=== PATIENT | female | born 1960 | race Two or more races ===

== ENCOUNTER 2025-09-18 16:27 | Observation (INO) ==
[2025-09-18 17:02] LABS: Hematocrit (blood only) 37.7 % (37.0-47.0); Hemoglobin 13.3 g/dl (12.0-16.0); Immature Granulocytes # (auto) 0.01 K/uL (0.01-0.20); Immature Granulocytes % (auto) 0.1 %; Mean Corpuscular Hemoglobin 31.4 pg (25.0-34.0); Mean Corpuscular Volume 88.9 fL (80.0-100.0); Platelet Count 328 K/uL (130-400); RDW Standard Deviation 42.9 fL (36.4-46.3); Red Blood Count 4.24 M/uL (4.20-5.40); White Blood Count 7.61 K/ul (4.8-10.8)
[2025-09-18 17:20] LABS: Alanine Aminotransferase 18 U/L (7-52); Albumin Globulin Ratio 1.1 (0.9-2); Albumin Level 4.1 gm/dl (3.4-5.0); Alkaline Phosphatase 55 U/L (34-104); Anion Gap 7 (3-11); Bilirubin,Total 0.4 mg/dl (0.2-1.0); Blood Urea Nitrogen 16 mg/dl (6-23); Calcium 9.9 mg/dl (8.6-10.3); Carbon Dioxide 30 mmol/L (21-32); Chloride 101 mmol/L (98-107); Globulin 3.9 gm/dl (2.5-4.0); Glucose 174 mg/dl (70-99(Fasting)); Potassium 3.7 mmol/L (3.5-5.1); Sodium 138 mmol/L (136-145); Total Protein 8.0 gm/dl (6.0-8.3)
[2025-09-18 20:28] LABS: Magnesium 2.4 mg/dl (1.7-2.4)
--- NOTE | 2025-09-18 20:32 | Emergency Department Note ---
Impression & Plan Generalized weakness, Tremors of nervous system, Adverse drug effect, Parkinson's disease, Acute UTI (urinary tract infection) ED Provider Note ED Provider Note NAME: CLAUDE KAPOOR AGE:65 SEX: Female : 1960 ARRIVES VIA: Private vehicle INFORMANT: Patient, son ED PROVIDER(s): Flor Nolen DO CHIEF COMPLAINT: Increased shaking, decreased appetite, weakness HPI: This is a 65-year-old female who presents to the emergency department due to concern for worsening symptoms over the course of the last week that they suspect may be related to recent medication changes. Patient with increased shakiness, sense of "hot and cold", decreased appetite, and increased weakness. Please state patient does have a history of Parkinson's and a few months ago moved here from [place]. When she moved and her insurance changed, she could no longer afford the original Parkinson's medication she had been prescribed. She was changed to carbidopa levodopa and was taking it and her symptoms seemed well-controlled. She complained to her neurologist, Dr. Madera, about taking a total of 8 pills each day. Son states he then changed the dosing so that it was only 3 pills a day but a higher prescribed dose each time. He states when they did that she began to become symptomatic. He states she followed up with her PCP. He states after worsening symptoms she tried to go back to the regimen of 8 pills daily however has continued to feel worse. He states she had previously been independent performing all of her own ADLs and now she cannot walk and he has to carry her to the bathroom. He states there been no accompanying medication changes or recent illness. He states she has not fallen. PAST MEDICAL HISTORY:See Below PAST SURGICAL HISTORY:See Below FAMILY HISTORY:See Below SOCIAL HISTORY:See Below HOME MEDICATIONS:See Below ALLERGIES:See Below VITALS:See Below PHYSICAL EXAMINATION: GENERAL: alert, well nourished, no distress, non-toxic, flat affect EYE EXAM: normal conjunctiva, PERRL and EOM's grossly intact OROPHARYNX: no exudate, no erythema, lips, buccal mucosa, and tongue normal and mucous membranes are moist NECK: supple, no nuchal rigidity, no adenopathy, non-tender LUNGS: Clear to auscultation. Normal chest wall mechanics, no w/r/r HEART: no murmurs, S1 normal and S2 normal ABDOMEN: abdomen soft, non-tender, normo-active bowel sounds, no masses, no rebound or guarding. SKIN: no rashes, petechiae, orbruising UPPER EXTREMITIES: upper extremities are grossly normal. FROM, nml pulses b/l. LOWER EXTREMITIES: No pitting edema. FROM, nml pulses b/l. NEURO EXAM: Normal sensorium, cranial nerves II-XII grossly intact, normal speech, no facial droop,nogross weakness of arms, no gross weakness of legs. Gross sensation intact. No ataxia. Resting tremor noted. Vital Signs: reviewed and remarkable Differential Diagnosis: Medication adverse effect, occult infection, dehydration, electrolyte abnormality, depression, SAJAN, as well as other were considered MEDICAL DECISION MAKING: This is a 65-year-old female who presents with family due to concern for increased weakness, tremors, decreased intake, and possible side effects of her medications. Patient with recent changes to her Parkinson's medications and dosing. Patient initially seen in triage area due to presentation on the day of volume and acuity. Labs are drawn and sent, IV established, once she was only placed in a regular patient room and EKG was performed and interpreted by me at bedside and she was monitored on telemetry. Urine collected and sent additionally and was suggestive of possible infection. Other labs reassuring. Due to concern for significant weakness and decline in her ADLs with confusion, and unclear if related to medication side effect versus other etiology including a UTI, case discussed with the hospitalist team for additional evaluation and mgmt. Consultation(s): 2109: Discussed with Dr. Ceja, [facility] hospitalist team, for additional evaluation and mgmt. ER Treatment Provided: See below Diagnostics Interpreted By Me: -ECG: Normal sinus at 97 axis, normal intervals, no acute ST/T wave changes -Cardiac Monitoring: An order was placed for continuous cardiac monitoring. The monitor shows a rate of 86 with normal sinus rhythm. -Laboratory studies: As stated above and show below. Triage Nursing Note Reviewed Prior/Outside Records Reviewed Past Med/Surg History Problem List (Updated 09/18/25 @ 22:59 by Flor Nolen DO) Acute UTI (urinary tract infection) (Acute) Parkinson's disease (Acute) Adverse drug effect (Acute) Tremors of nervous system (Acute) Generalized weakness (Acute) Social History Smoking Status: Never smoker Preferred Language: Montenegrin Feels Safe at Home: Yes Allergies Allergies Allergy/AdvReac Type Severity Reaction Status Date / Time lisinopril Allergy Swelling Verified 09/18/25 22:02 of Lip/Tongue/Throat Results & Data (ED) Vital Signs Vital Signs - 24 hr 09/18/25 16:31 09/18/25 21:03 09/18/25 21:03 Temperature 37 C Temperature Source Temporal Artery Scan Pulse Rate 101 H 84 Pulse Rate [Left Apical] 84 Respiratory Rate 18 18 Respiratory Effort / Characteristics Non-Labored Spontaneous Non-Labored Spontaneous Respiratory Depth Normal Normal Respiratory Pattern Regular Regular Blood Pressure 141/93 H Blood Pressure [Right Arm] 128/79 Blood Pressure Mean 109 Blood Pressure Mean [Right Arm] 95 Blood Pressure Position [Right Arm] Semi-fowlers Pulse Oximetry 95 97 Oxygen Delivery Method Room Air Room Air Sepsis Recent Fever Within 48 Hours No Sepsis New/Unexplained Change in Mental Status No Sepsis Action Taken by Nursing No Action Required 09/18/25 21:03 09/18/25 21:30 09/18/25 22:01 Temperature Temperature Source Pulse Rate 81 80 Pulse Rate [Left Apical] Respiratory Rate 19 19 Respiratory Effort / Characteristics Respiratory Depth Respiratory Pattern Blood Pressure 128/79 132/79 142/77 H Blood Pressure [Right Arm] Blood Pressure Mean 97 101 96 Blood Pressure Mean [Right Arm] Blood Pressure Position [Right Arm] Pulse Oximetry 97 98 Oxygen Delivery Method Room Air Sepsis Recent Fever Within 48 Hours Sepsis New/Unexplained Change in Mental Status Sepsis Action Taken by Nursing Laboratory Data 09/18/25 16:48 09/18/25 16:48 Lab Results 09/18/25 09/18/25 Range/Units 16:48 21:01 WBC 7.61 (4.8-10.8) K/ul RBC 4.24 (4.20-5.40) M/uL Hgb 13.3 (12.0-16.0) g/dl Hct 37.7 (37.0-47.0) % MCV 88.9 (80.0-100.0) fL MCH 31.4 (25.0-34.0) pg MCHC 35.3 (32.0-36.0) g/dL RDW Std Deviation 42.9 (36.4-46.3) fL RDW Coeff of Gely 13.2 (11.5-14.5) % Plt Count 328 (130-400) K/uL MPV 9.6 (9.4-12.4) fL Immature Gran % (Auto) 0.1 % Neut % (Auto) 73.8 % Lymph % (Auto) 18.1 % [place] % (Auto) 6.8 % Eos % (Auto) 0.5 % Baso % (Auto) 0.7 % Neut # (Auto) 5.61 (1.40-6.50) K/uL Lymph # (Auto) 1.38 (1.20-3.40) K/uL [place] # (Auto) 0.52 (0.11-0.59) K/uL Eos # (Auto) 0.04 (0.00-0.50) K/uL Baso # (Auto) 0.05 (0.00-0.20) K/uL Immature Gran # (Auto) 0.01 (0.01-0.20) K/uL Sodium 138 (136-145) mmol/L Potassium 3.7 (3.5-5.1) mmol/L Chloride 101 (98-107) mmol/L Carbon Dioxide 30 (21-32) mmol/L Anion Gap 7 (3-11) BUN 16 (6-23) mg/dl Creatinine 0.65 (0.6-1.2) mg/dl Est Cr Clr Drug Dosing Not Reportable eGFR 96.44 BUN/Creatinine Ratio 24.6 H (10-20) Glucose 174 H (70-99(Fasting)) mg/dl Calcium 9.9 (8.6-10.3) mg/dl Magnesium 2.4 (1.7-2.4) mg/dl Total Bilirubin 0.4 (0.2-1.0) mg/dl AST 23 (13-39) U/L ALT 18 (7-52) U/L Alkaline Phosphatase 55 (34-104) U/L C-Reactive Protein < 0.50 (0-0.5) mg/dl Total Protein 8.0 (6.0-8.3) gm/dl Albumin 4.1 (3.4-5.0) gm/dl Globulin 3.9 (2.5-4.0) gm/dl Albumin/Globulin Ratio 1.1 (0.9-2) TSH 4.026 (0.300-4.500) uIu/ml Urine Color Dark Yellow Urine Appearance Cloudy A (Clear) Urine pH 6.5 (4.5-7.5) Ur Specific [place] 1.019 (1.000-1.030) Urine Protein Trace H (Negative) Urine Glucose (UA) Negative (Negative) Urine Ketones Trace H (Negative) Urine Blood Negative (Negative) Urine Nitrite Negative (Negative) Urine Bilirubin Negative (Negative) Urine Urobilinogen Negative (Negative) Ur Leukocyte Esterase 2+ H (Negative) Urine WBC (Auto) 21-50 H (0-5) /hpf Urine RBC (Auto) 3-5 H (0-2) /hpf U Hyaline Cast (Auto) 0-2 (0-2) /lpf U Epithel Cells (Auto) 3-5 H (0-2) /hpf Urine Bacteria (Auto) 2+ H (None Seen) Urine Comment Administered Medications Sodium Chloride (Nss) 1,000 mls @ 125 mls/hr IV .Q8H MEGAN Stop: 09/21/25 20:14 Last Admin: 09/18/25 21:15 Dose: 125 mls/hr Documented By: JOSE LUIS Discontinued Medications Ceftriaxone Sodium (Rocephin) 2,000 mg in 50 mls @ 100 mls/hr IV NOW STA Stop: 09/18/25 22:08 Last Admin: 09/18/25 22:01 Dose: 100 mls/hr Documented By: JOSE LUIS Discharge Plan Visit Data Chief Complaint: Illness Stated Complaint: VOMITNG, NAUSEA, DIARRHEA, SHAKING, NEG DRUG RXN ED Provider: Flor Nolen Discharge Problem: Generalized weakness, Tremors of nervous system, Adverse drug effect, Parkinson's disease, Acute UTI (urinary tract infection) Patient Disposition: Being Evaluated by Hospitalist Condition: Fair Forms Stand Alone Forms: My [facility] Referrals Referrals: PCP,NO [Physician] -
[2025-09-18 20:44] LABS: Thyroid Stimulating Hormone 4.026 uIu/ml (0.300-4.500)
[2025-09-18] MEDS: SODIUM CHLORIDE 0.9% 1,000 ML IV SCH (21:15)
[2025-09-18 21:20] LABS: Appearance Urine Cloudy (Clear); Bacteria Urine Automated 2+ (None Seen); Cast Urine Automated 0-2 /lpf (0-2); Glucose Urine UA Negative (Negative); WBC Urine Automated 21-50 /hpf (0-5)
[2025-09-18] MEDS: cefTRIAXone SODIUM 2,000 MG/50 ML BAG IV STA (22:01)
--- NOTE | 2025-09-18 23:35 | History & Physical Report ---
Date of Service September 18, 2025 Assessment & Plan (1) Generalized weakness: Plan: 65-year-old female with past medical history significant for type 2 diabetes, hypothyroidism, right breast cancer, Hyperlipidemia, osteoarthritis, Parkinson disease with dyskinesia, glaucoma both eyes, recurrent depression was brought in by son because of ongoing weakness. Patient recently moved from [place]. Son says she used to take carbidopa levodopa 8 tablets a day. When she saw neurologist here she complained of being on too many pills and the levodopa carbidopa dose was reduced to 3 tablets a day. Son thinks since then patient has declined. She was feeling nauseous and weak. Which she is to take 1 minute to walk before now takes 10 minutes. She went to [facility] ER twice and PCP office once and was told her symptoms were because of change in medi cations as per son. As per son her PCP told her to go back to taking 8 pills a day but patient is currently taking only 2 pills. As per son since last 1 week patient really went downhill with her weakness nausea. Patient is alert and awake. Denies any headache. Denies any chest pain. Denies any abdominal pain. Somewhat constipated. Micturating okay. No fevers. No difficulty swallowing. Vision is blurry. No sore throat or cough. Hemodynamics okay. Generalized weakness Son thinks because of reduced dose of carbidopa/levodopa Will consult neurology PT OT Acute UTI Possibly contributing to her symptoms Empiric Rocephin Gentle fluids Will follow cultures Type 2 diabetes Hold metformin Sliding scale Will monitor Depression Continue home medications Hyperlipidemia On statin Hypothyroidism On Synthyroid Hypertension On losartan DVT prophylaxis Lovenox Disposition Medical floor Full code History of Present Illness Chief Complaint: Weakness Primary Care Provider: Edilson Ann 65-year-old female with past medical history significant for type 2 diabetes, hypothyroidism, right breast cancer, Hyperlipidemia, osteoarthritis, Parkinson disease with dyskinesia, glaucoma both eyes, recurrent depression was brought in by son because of ongoing weakness. Patient recently moved from [place]. Son says she used to take carbidopa levodopa 8 tablets a day. When she saw neurologist here she complained of being on too many pills and the levodopa carbidopa dose was reduced to 3 tablets a day. Son thinks since then patient has declined. She was feeling nauseous and weak. Which she is to take 1 minut e to walk before now takes 10 minutes. She went to [facility] ER twice and PCP office once and was told her symptoms were because of change in medications as per son. As per son her PCP told her to go back to taking 8 pills a day but patient is currently taking only 2 pills. As per son since last 1 week patient really went downhill with her weakness nausea. Patient is alert and awake. Denies any headache. Denies any chest pain. Denies any abdominal pain. Somewhat constipated. Micturating okay. No fevers. No difficulty swallowing. Vision is blurry. No sore throat or cough. Hemodynamics okay. Past medical history. As mentioned above. Past surgical history. Lasering of second current tract. Partial right mastectomy. Radiation treatment. Chemotherapy. Cataracts total hysterectomy. Social history. No smoking. No alcohol use.. No drug use. Family history. No family history on file. Allergies Allergy/AdvReac Type Severity Reaction Status Date / Time lisinopril Allergy Swelling Verified 09/18/25 22:02 of Lip/Tongue/Throat Home Medications Medication Instructions Recorded Confirmed Type buspirone 10 mg tablet 10 mg PO BID 09/18/25 09/18/25 History carbidopa 25 mg-levodopa 100 1 tab PO TID 09/18/25 09/18/25 History mg-entacapone 200 mg tablet citalopram 40 mg tablet 40 mg PO DAILY 09/18/25 09/18/25 History cyanocobalamin (vitamin B-12) 250 250 mcg PO DAILY 09/18/25 09/18/25 History mcg tablet latanoprost 0.005 % eye drops 1 drp OPB HS 09/18/25 09/18/25 History levothyroxine 25 mcg tablet 25 mcg PO DAILY 09/18/25 09/18/25 History losartan 50 mg tablet 50 mg PO DAILY 09/18/25 09/18/25 History metformin 1,000 mg tablet 1,000 mg PO DAILY 09/18/25 09/18/25 History polyethylene glycol 3350 17 gram 17 g PO DAILY PRN Constipation 09/18/25 09/18/25 History oral powder packet (Miralax) pravastatin 40 mg tablet 40 mg PO DAILY 09/18/25 09/18/25 History Past Med/Surg History Problem List (Updated 09/19/25 @ 01:06 by Background Daemon) Acute UTI (urinary tract infection) (Acute) Parkinson's disease (Acute) Adverse drug effect (Acute) Tremors of nervous system (Acute) Generalized weakness (Acute) Social History Smoking Status: Never smoker Hx Alcohol Use: No Hx Substance Use: No Preferred Language: [place] Citizen Communication Ability: Effective Air Brake Operator Required: No Beliefs That Will Affect Care: None Current Living Situation: Family Current Living Situation Comment: lives with son and grand daughter Other Information That Helps Us Care for You: No Feels Safe at Home: Yes Safety Concerns: Feels Safe At This Time Assistive Devices: Cane, Glasses and Wheelchair Review of Systems Review of Systems: All systems reviewed & are unremarkable except as noted in HPI & below Physical Exam Physical Exam: General- Not in distress Head- atraumatic Eyes- PERRL. ENT- oropharynx clear Neck- supple, no JVD. Lungs- clear to auscultation no wheezing or crackles Heart- regular rhythm; no murmur, no gallop. Abdomen- normal bowel sounds, soft, nontender, no distension Extremities- lower ext edema present, no erythema seen Neuro- alert, oriented PERRL, no facial palsy; no dysarthria; moves extremities Results & Data Results & Data Vital Signs (Past 12 Hours) Vital Signs Temp Pulse Pulse Resp BP BP Pulse Ox 09/18/25 22:30 91 H 15 149/99 H 97 09/18/25 22:01 142/77 H 09/18/25 21:30 80 19 132/79 98 09/18/25 21:03 81 19 128/79 97 09/18/25 21:03 84 09/18/25 21:03 84 18 128/79 97 09/18/25 16:31 37 C 101 H 18 141/93 H 95 O2 Del Method 09/18/25 22:30 Room Air 09/18/25 22:01 09/18/25 21:30 09/18/25 21:03 Room Air 09/18/25 21:03 09/18/25 21:03 Room Air 09/18/25 16:31 Room Air Diagnostic Findings Laboratory Results WBC 7.61 K/ul (4.8-10.8) 09/18/25 16:48 RBC 4.24 M/uL (4.20-5.40) 09/18/25 16:48 Hgb 13.3 g/dl (12.0-16.0) 09/18/25 16:48 Hct 37.7 % (37.0-47.0) 09/18/25 16:48 MCV 88.9 fL (80.0-100.0) 09/18/25 16:48 MCH 31.4 pg (25.0-34.0) 09/18/25 16:48 MCHC 35.3 g/dL (32.0-36.0) 09/18/25 16:48 RDW Std Deviation 42.9 fL (36.4-46.3) 09/18/25 16:48 RDW Coeff of Gely 13.2 % (11.5-14.5) 09/18/25 16:48 Plt Count 328 K/uL (130-400) 09/18/25 16:48 MPV 9.6 fL (9.4-12.4) 09/18/25 16:48 Immature Gran % (Auto) 0.1 % 09/18/25 16:48 Neut % (Auto) 73.8 % 09/18/25 16:48 Lymph % (Auto) 18.1 % 09/18/25 16:48 [place] % (Auto) 6.8 % 09/18/25 16:48 Eos % (Auto) 0.5 % 09/18/25 16:48 Baso % (Auto) 0.7 % 09/18/25 16:48 Neut # (Auto) 5.61 K/uL (1.40-6.50) 09/18/25 16:48 Lymph # (Auto) 1.38 K/uL (1.20-3.40) 09/18/25 16:48 [place] # (Auto) 0.52 K/uL (0.11-0.59) 09/18/25 16:48 Eos # (Auto) 0.04 K/uL (0.00-0.50) 09/18/25 16:48 Baso # (Auto) 0.05 K/uL (0.00-0.20) 09/18/25 16:48 Immature Gran # (Auto) 0.01 K/uL (0.01-0.20) 09/18/25 16:48 Sodium 138 mmol/L (136-145) 09/18/25 16:48 Potassium 3.7 mmol/L (3.5-5.1) 09/18/25 16:48 Chloride 101 mmol/L (98-107) 09/18/25 16:48 Carbon Dioxide 30 mmol/L (21-32) 09/18/25 16:48 Anion Gap 7 (3-11) 09/18/25 16:48 BUN 16 mg/dl (6-23) 09/18/25 16:48 Creatinine 0.65 mg/dl (0.6-1.2) 09/18/25 16:48 Est Cr Clr Drug Dosing Not Reportable 09/18/25 16:48 eGFR 96.44 09/18/25 16:48 BUN/Creatinine Ratio 24.6 (10-20) H 09/18/25 16:48 Glucose 174 mg/dl (70-99(Fasting)) H 09/18/25 16:48 Calcium 9.9 mg/dl (8.6-10.3) 09/18/25 16:48 Magnesium 2.4 mg/dl (1.7-2.4) 09/18/25 16:48 Total Bilirubin 0.4 mg/dl (0.2-1.0) 09/18/25 16:48 AST 23 U/L (13-39) 09/18/25 16:48 ALT 18 U/L (7-52) 09/18/25 16:48 Alkaline Phosphatase 55 U/L (34-104) 09/18/25 16:48 C-Reactive Protein < 0.50 mg/dl (0-0.5) 09/18/25 16:48 Total Protein 8.0 gm/dl (6.0-8.3) 09/18/25 16:48 Albumin 4.1 gm/dl (3.4-5.0) 09/18/25 16:48 Globulin 3.9 gm/dl (2.5-4.0) 09/18/25 16:48 Albumin/Globulin Ratio 1.1 (0.9-2) 09/18/25 16:48 TSH 4.026 uIu/ml (0.300-4.500) 09/18/25 16:48 Urine Color Dark Yellow 09/18/25 21:01 Urine Appearance Cloudy (Clear) A 09/18/25 21:01 Urine pH 6.5 (4.5-7.5) 09/18/25 21:01 Ur Specific [place] 1.019 (1.000-1.030) 09/18/25 21:01 Urine Protein Trace (Negative) H 09/18/25 21:01 Urine Glucose (UA) Negative (Negative) 09/18/25 21:01 Urine Ketones Trace (Negative) H 09/18/25 21:01 Urine Blood Negative (Negative) 09/18/25 21: Urine Nitrite Negative (Negative) 09/18/25 21: Urine Bilirubin Negative (Negative) 09/18/25 21: Urine Urobilinogen Negative (Negative) 09/18/25 21: Ur Leukocyte Esterase 2+ (Negative) H 09/18/25 21:01 Urine WBC (Auto) 21-50 /hpf (0-5) H 09/18/25 21: Urine RBC (Auto) 3-5 /hpf (0-2) H 09/18/25 21:01 U Hyaline Cast (Auto) 0-2 /lpf (0-2) 09/18/25 21:01 U Epithel Cells (Auto) 3-5 /hpf (0-2) H 09/18/25 21:01 Urine Bacteria (Auto) 2+ (None Seen) H 09/18/25 21: Urine Comment 09/18/25 21:01 Code Status & VTE Plan VTE Prophylaxis Plan VTE Prophylaxis will be ordered: Yes
[2025-09-19] MEDS ORDERED: POLYETHYLENE (MIRALAX) 17 GM PACK PO PRN (01:12)
[2025-09-19] MEDS ORDERED: ACETAMINOPHEN 325 MG TAB PO PRN (01:12)
[2025-09-19] MEDS: SODIUM CHLORIDE 0.9% 1,000 ML IV SCH (01:22)
[2025-09-19] MEDS: ENOXAPARIN INJ 40 MG/0.4 ML SYR SQ ONE (02:00)
[2025-09-19] MEDS: LEVOTHYROXINE SODIUM 25 MCG TABLET PO SCH (05:51)
[2025-09-19 06:57] LABS: Hematocrit (blood only) 37.6 % (37.0-47.0); Hemoglobin 12.5 g/dl (12.0-16.0); Immature Granulocytes # (auto) 0.01 K/uL (0.01-0.20); Immature Granulocytes % (auto) 0.2 %; Mean Corpuscular Hemoglobin 30.2 pg (25.0-34.0); Mean Corpuscular Volume 90.8 fL (80.0-100.0); Platelet Count 314 K/uL (130-400); RDW Standard Deviation 44.7 fL (36.4-46.3); Red Blood Count 4.14 M/uL (4.20-5.40); White Blood Count 6.38 K/ul (4.8-10.8)
[2025-09-19 07:15] LABS: Anion Gap 7.0 (3-11); Blood Urea Nitrogen 15.0 mg/dl (6-23); Calcium 9.1 mg/dl (8.6-10.3); Carbon Dioxide 30.0 mmol/L (21-32); Chloride 106.0 mmol/L (98-107); Creatinine Clr Calc Pharmacy 76.7 ml/min; Glucose 107.0 mg/dl (70-99(Fasting)); Magnesium 2.3 mg/dl (1.7-2.4); Potassium 3.8 mmol/L (3.5-5.1); Sodium 143.0 mmol/L (136-145)
[2025-09-19 07:29] LABS: Hemoglobin A1C 6.2 % (4.5-5.6)
[2025-09-19] MEDS: CARBIDOPA/LEVODOPA 25/100MG TAB PO SCH (10:07)
[2025-09-19] MEDS: LOSARTAN POTASSIUM 50 MG TAB PO SCH (10:08)
[2025-09-19] MEDS: CYANOCOBALAMIN (B-12) 500 MCG TABLET PO SCH (10:08)
[2025-09-19] MEDS: CITALOPRAM 40 MG TAB PO SCH (10:08)
[2025-09-19] MEDS: PRAVASTATIN SOD 40 MG TAB PO SCH (10:08)
[2025-09-19] MEDS: busPIRone 5 MG TAB PO SCH (10:08)
[2025-09-19] MEDS: ENTACAPONE 200 MG TAB PO SCH ×2 (10:19→10:39)
--- NOTE | 2025-09-19 11:47 | Electrocardiogram Report ---
Test Reason : Blood Pressure : */* mmHG Vent. Rate : 97 BPM Atrial Rate : 97 BPM P-R Int : 146 ms QRS Dur : 76 ms QT Int : 346 ms P-R-T Axes : 64 72 37 degrees QTcB Int : 439 ms Normal sinus rhythm Normal ECG No previous ECGs available Confirmed by Kingsley Styles ([id number]) on 09/19/2025 11:47:24 AM Referred By: REFERRED SELF Confirmed By: Kingsley Styles
--- NOTE | 2025-09-19 11:49 | Hospitalist Progress Note ---
Date of Service September 19, 2025 Assessment & Plan (1) Generalized weakness: Plan: 65-year-old female with past medical history significant for type 2 diabetes, hypothyroidism, right breast cancer, Hyperlipidemia, osteoarthritis, Parkinson disease with dyskinesia, glaucoma both eyes, recurrent depression was brought in by son because of ongoing weakness. Patient recently moved from [place]. Son says she used to take carbidopa levodopa 8 tablets a day. When she saw neurologist here she complained of being on too many pills and the levodopa carbidopa dose was reduced to 3 tablets a day. Son thinks since then patient has declined. She was feeling nauseous and weak. Which she is to take 1 minute to walk before now takes 10 minutes. She went to [facility] ER twice and PCP office once and was told her symptoms were because of change in medi cations as per son. As per son her PCP told her to go back to taking 8 pills a day but patient is currently taking only 2 pills. As per son since last 1 week patient really went downhill with her weakness nausea. Patient is alert and awake. Denies any headache. Denies any chest pain. Denies any abdominal pain. Somewhat constipated. Micturating okay. No fevers. No difficulty swallowing. Vision is blurry. No sore throat or cough. Hemodynamics okay. Generalized weakness Possibly secondary to Parkinson's disease Acute UTI History of Parkinson's disease; with multiple medication changes in the last few weeks. Urinalysis today for infection Continue on antibiotics; Neurology consulted to discuss further medication optimization Continue IV fluids for total of 2 L Follow-up on urine culture results PT OT evaluation; son interested in home health Obtain vitamin B12 level Type 2 diabetes Hold metformin Sliding scale Will monitor Depression Continue citalopram Hyperlipidemia On statin-continue Hypothyroidism On Synthyroid-continue Hypertension On losartan-continue DVT prophylaxis Lovenox Disposition Medical floor Full code Please note the above document was generated using voice recognition software. It may contain grammatical, syntax or spelling errors. Any formal questions or concerns about the content, text or information contained within the body of this dictation should be directly addressed to the provider for clarification Admission and Anticipated Discharge Date Admission Date: September 18, 2025 Subjective Patient seen at bedside. Her son is also at bedside. He reports that patient is feeling much better compared to on admission. Patient reports feeling comfortable; no fever, chills, chest pain or shortness of breath. Review of Systems Review of Systems: All systems reviewed & are unremarkable except as noted in Subjective Physical Exam Physical Exam: General- Not in distress Lungs- clear to auscultation no wheezing or crackles Heart- regular rhythm; no murmur, no gallop. Abdomen- normal bowel sounds, soft, nontender, no distension Extremities- lower ext edema present, no erythema seen Neuro- alert, oriented PERRL, no facial palsy; no dysarthria; moves extremities Results & Data Results & Data Vital Signs (Past 12 Hours) Vital Signs Temp Pulse Pulse Resp BP BP Pulse Ox 09/19/25 07:35 36.7 C 87 18 144/74 H 97 09/19/25 07:23 36.8 C 246 H 16 166/78 H 89 L 09/19/25 04:24 36.6 C 86 18 133/68 95 09/19/25 01:55 36.8 C 76 18 122/68 99 09/19/25 00:19 77 14 115/69 95 O2 Del Method 09/19/25 07:35 Room Air 09/19/25 07:23 Room Air 09/19/25 04:24 Room Air 09/19/25 01:55 Room Air 09/19/25 00:19 Room Air
--- NOTE | 2025-09-19 11:53 | Neurology Consultation ---
Date of Consultation September 19, 2025 Assessment & Plan (1) Parkinson's disease: Recommend continue current dosing of carbidopa 25-levodopa 100-entacapone 200 one tab TID Recommend continue to monitor orthostatic vital signs May benefit from thigh high TEDS Continue to monitor telemetry closely Continue to monitor mentation and neurological assessments Obtain stat CT brain without contrast for any acute neurological decline Continue metabolic workup, monitor renal and hepatic function, keep euvolemic Recommend therapy evals and tx as indicated VTE prophylaxis while inpatient Continue outpatient follow up with neurology as scheduled (2) Acute UTI (urinary tract infection): Agree with continued antimicrobial tx Telehealth Consultation Telehealth Information Telehealth Information: I performed this visit using a real-time telehealth connection between my location and the patients originating location ([facility]). After connecting through interactive tele-video, patient was identified by name and date of and/or wristband check.Patient (or authorized healthcare construction sales representative) was informed that this was a telemedicine visit and it was being conducted confidentially over secure lines. My office door was closed and no one else was present in the room with me.Patient (or authorized healthcare construction sales representative) provided consent to proceed with the visit, expressed an understanding of privacy and security of the telemedicine visit, and gave permission to have a hospital construction sales representative in the room in order to assist with the visit and to conduct portions of the visit, as needed. I informed the patient (or authorized healthcare construction sales representative) that I reviewed their record and presented the opportunity for them to ask any questions regarding the visit today. The patient agreed to participate. History of Present Illness Reason for Consultation: Parkinson's disease Requesting Physician: Dr Mjeia Attending Physician: Jose Alfredo Mejia MD History of Present Illness 65yo female with hx of Parkinson's disease hypothyroidism, HTN, DM, hyperlipidemia as well as depression presented to ER with one weak of nausea and vomiting as well as ongoing report of lethargy and weakness. She has been diagnosed with UTI and is being treated with antimicrobial therapy. Neurology consulted due to concern of medication changes causing symptoms. She has been prescribed carbidopa 25-levodopa 100-entacapone 200 TID. She has planned follow up with neurology in October 2025. I have performed televideo consultation. She is alert & oriented; able to answer all questions appropriately, name objects on televideo monitor, repeat phrases and perform complex/embedded commands without deficit. Neurological exam is non lateralizing/nonfocal in terms of motor strength. There is noted resting tremor in BUE. She demonstrates bradykinesia and hypomimia. She denies complaint at this time. Appears in no apparent distress or discomfort. Allergies Allergy/AdvReac Type Severity Reaction Status Date / Time lisinopril Allergy Swelling Verified 09/18/25 22:02 of Lip/Tongue/Throat Home Medications Medication Instructions Recorded Confirmed Type buspirone 10 mg tablet 10 mg PO BID 09/18/25 09/18/25 History carbidopa 25 mg-levodopa 100 1 tab PO TID 09/18/25 09/18/25 History mg-entacapone 200 mg tablet citalopram 40 mg tablet 40 mg PO DAILY 09/18/25 09/18/25 History cyanocobalamin (vitamin B-12) 250 250 mcg PO DAILY 09/18/25 09/18/25 History mcg tablet latanoprost 0.005 % eye drops 1 drp OPB HS 09/18/25 09/18/25 History levothyroxine 25 mcg tablet 25 mcg PO DAILY 09/18/25 09/18/25 History losartan 50 mg tablet 50 mg PO DAILY 09/18/25 09/18/25 History metformin 1,000 mg tablet 1,000 mg PO DAILY 09/18/25 09/18/25 History polyethylene glycol 3350 17 gram 17 g PO DAILY PRN Constipation 09/18/25 09/18/25 History oral powder packet (Miralax) pravastatin 40 mg tablet 40 mg PO DAILY 09/18/25 09/18/25 History Patient History Social History Smoking Status: Never smoker Hx Alcohol Use: No Hx Substance Use: No Preferred Language: Uzbek Communication Ability: Effective [place] Man Required: No Beliefs That Will Affect Care: None Current Living Situation: Family Current Living Situation Comment: lives with son and grand daughter Other Information That Helps Us Care for You: No Feels Safe at Home: Yes Safety Concerns: Feels Safe At This Time Assistive Devices: Cane, Glasses and Wheelchair Physical Exam Neurological Examination: Mental Status: Awake and alert. Oriented to person, place, and time. Fluency naming repetition and comprehension appear grossly intact. Affect remains appropriate. CN testing: I: Deferred II: Reports no changes in visual acuity III/IV/: No evidence of gaze preference, hippus, nystagmus or roving eye movements V: Facial sensation reportedly grossly intact to light touch bilaterally Appreciate hypomimia VII: Facial movements appear without evidence of asymmetry VIII: Hearing appears grossly intact to loud voice bilaterally IX/X: Palate is unable to be accurately visualized XI: Shoulder shrug appears symmetric/ grossly intact bilaterally XII: Tongue protrudes midline without evidence of biting Motor exam: There is noted bradykinesia Strength appears grossly intact in all extremities Tone: Unable to accurately assess via telemedicine Sensory: Sensation is reportedly grossly intact throughout Coordination: BUE resting tremor Reflexes: Unable to accurately assess via telemedicine Gait: Deferred Results & Data Vital Signs (Past 12 Hours) Vital Signs Temp Pulse Pulse Resp BP BP Pulse Ox 09/19/25 07:35 36.7 C 87 18 144/74 H 97 09/19/25 07:23 36.8 C 246 H 16 166/78 H 89 L 09/19/25 04:24 36.6 C 86 18 133/68 95 09/19/25 01:55 36.8 C 76 18 122/68 99 09/19/25 00:19 77 14 115/69 95 O2 Del Method 09/19/25 07:35 Room Air 09/19/25 07:23 Room Air 09/19/25 04:24 Room Air 09/19/25 01:55 Room Air 09/19/25 00:19 Room Air Laboratory Results Abnormal lab results 09/18/25 09/18/25 09/19/25 Range/Units 16:48 21:01 04:20 RBC (4.20-5.40) M/uL BUN/Creatinine Ratio 24.6 H (10-20) Glucose 174 H (70-99(Fasting)) mg/dl POC Glucose 108 H (70-99) mg/dl Hemoglobin A1c (4.5-5.6) % Urine Appearance Cloudy A (Clear) Urine Protein Trace H (Negative) Urine Ketones Trace H (Negative) Ur Leukocyte Esterase 2+ H (Negative) Urine WBC (Auto) 21-50 H (0-5) /hpf Urine RBC (Auto) 3-5 H (0-2) /hpf U Epithel Cells (Auto) 3-5 H (0-2) /hpf Urine Bacteria (Auto) 2+ H (None Seen) 09/19/25 09/19/25 Range/Units 06:35 08:03 RBC 4.14 L (4.20-5.40) M/uL BUN/Creatinine Ratio 23.1 H (10-20) Glucose 107 H (70-99(Fasting)) mg/dl POC Glucose 113 H (70-99) mg/dl Hemoglobin A1c 6.2 H (4.5-5.6) % Urine Appearance (Clear) Urine Protein (Negative) Urine Ketones (Negative) Ur Leukocyte Esterase (Negative) Urine WBC (Auto) (0-5) /hpf Urine RBC (Auto) (0-2) /hpf U Epithel Cells (Auto) (0-2) /hpf Urine Bacteria (Auto) (None Seen) Medications Administered Home Medications Medication Instructions Recorded Confirmed Last Taken buspirone 10 mg tablet 10 mg PO BID 09/18/25 09/18/25 Unknown carbidopa 25 mg-levodopa 100 1 tab PO TID 09/18/25 09/18/25 Unknown mg-entacapone 200 mg tablet citalopram 40 mg tablet 40 mg PO DAILY 09/18/25 09/18/25 Unknown cyanocobalamin (vitamin B-12) 250 250 mcg PO DAILY 09/18/25 09/18/25 Unknown mcg tablet latanoprost 0.005 % eye drops 1 drp OPB HS 09/18/25 09/18/25 Unknown levothyroxine 25 mcg tablet 25 mcg PO DAILY 09/18/25 09/18/25 Unknown losartan 50 mg tablet 50 mg PO DAILY 09/18/25 09/18/25 Unknown metformin 1,000 mg tablet 1,000 mg PO DAILY 09/18/25 09/18/25 Unknown polyethylene glycol 3350 17 gram 17 g PO DAILY PRN Constipation 09/18/2509/18 Unknown oral powder packet (Miralax) pravastatin 40 mg tablet 40 mg PO DAILY 09/18/25 09/18/25 Unknown Active Medications Generic Name Dose Route Start Last Admin Trade Name Freq PRN Reason Stop Dose Admin Buspirone HCl 10 mg 09/19/25 09:00 09/19/25 10:08 Buspirone 5 Mg Tab PO 10/19/25 08:59 10 mg BID MEGAN Administration Carbidopa/Levodopa 1 tab 09/19/25 09:00 09/19/25 10:07 Carbidopa/Levodopa 25/100mg Tab PO 10/19/25 08:59 1 tab TID MEGAN Administration Citalopram Hydrobromide 40 mg 09/19/25 09:00 09/19/25 10:08 Citalopram 40 Mg Tab PO 10/19/25 08:59 40 mg DAILY MEGAN Administration Cyanocobalamin 250 mcg 09/19/25 09:00 09/19/25 10:08 Cyanocobalamin (B-12) 500 Mcg Tablet PO 10/19/25 08:59 250 mcg DAILY MEGAN Administration Entacapone 200 mg 09/19/25 10:30 09/19/25 10:19 Entacapone 200 Mg Tab PO 10/19/25 10:29 200 mg TID MEGAN Administration Sodium Chloride 1,000 mls @ 80 mls/hr 09/19/25 01:12 09/19/25 01:22 Nss IV 09/20/25 02:11 80 mls/hr .[id number] MEGAN Administration Levothyroxine Sodium 25 mcg 09/19/25 06:30 09/19/25 05:51 Levothyroxine Sodium 25 Mcg Tablet PO 10/19/25 06:29 25 mcg DAILYBB MEGAN Administration Losartan Potassium 50 mg 09/19/25 09:00 09/19/25 10:08 Losartan Potassium 50 Mg Tab PO 10/19/25 08:59 50 mg DAILY MEGAN Administration Pravastatin Sodium 40 mg 09/19/25 09:00 09/19/25 10:08 Pravastatin Sod 40 Mg Tab PO 10/19/25 08:59 40 mg DAILY MEGAN Administration
[2025-09-19] MEDS: cefTRIAXone SODIUM 2,000 MG/50 ML BAG IV SCH (21:55)
[2025-09-19] MEDS: LATANOPROST 0.005% OP SOLN 2.5 ML BTL OPB SCH (22:36)
[2025-09-20 05:27] LABS: Appearance Urine Clear (Clear); Bacteria Urine Automated None Seen (None Seen); Cast Urine Automated 0-2 /lpf (0-2); Glucose Urine UA Negative (Negative); RBC Urine Automated 0-2 /hpf (0-2); WBC Urine Automated 0-5 /hpf (0-5)
[2025-09-20] MEDS: ENOXAPARIN INJ 40 MG/0.4 ML SYR SQ ONE (06:23)
[2025-09-20] MEDS: cefTRIAXone SODIUM 2,000 MG/50 ML BAG IV SCH (11:29)
--- NOTE | 2025-09-20 15:40 | Hospitalist Progress Note ---
Date of Service September 20, 2025 Assessment & Plan (1) Generalized weakness: Plan: 65-year-old female with past medical history significant for type 2 diabetes, hypothyroidism, right breast cancer, Hyperlipidemia, osteoarthritis, Parkinson disease with dyskinesia, glaucoma both eyes, recurrent depression was brought in by son because of ongoing weakness. Patient recently moved from [place]. Son says she used to take carbidopa levodopa 8 tablets a day. When she saw neurologist here she complained of being on too many pills and the levodopa carbidopa dose was reduced to 3 tablets a day. Son thinks since then patient has declined. She was feeling nauseous and weak. Which she is to take 1 minute to walk before now takes 10 minutes. She went to [facility] ER twice and PCP office once and was told her symptoms were because of change in medi cations as per son. As per son her PCP told her to go back to taking 8 pills a day but patient is currently taking only 2 pills. As per son since last 1 week patient really went downhill with her weakness nausea. Patient is alert and awake. Denies any headache. Denies any chest pain. Denies any abdominal pain. Somewhat constipated. Micturating okay. No fevers. No difficulty swallowing. Vision is blurry. No sore throat or cough. Hemodynamics okay. Generalized weakness Possibly secondary to Parkinson's disease Acute UTI --H/O Parkinson's disease; with multiple medication changes in the last few weeks. --Urine culture noncontributory -- Empirically on IV Rocephin Continue carbidopa 25-levodopa 100-entacapone 200 one tab TID Appreciate neurology input Continue PT OT Continue teds Received IV fluids Needs follow-up with neurology on discharge Type 2 diabetes HbA1c 6.2 Hold metformin Continue insulin while hospitalized Monitor blood glucose levels Depression Continue citalopram Hyperlipidemia Continue statin Hypothyroidism Continue levothyroxine Hypertension On losartan-continue Monitor blood pressure DVT prophylaxis Heparin SQ CODE STATUS Full code Disposition To be determined Admission and Anticipated Discharge Date Admission Date: September 18, 2025 Subjective Patient is seen and examined at bedside Subjectively feels weakness, shakiness with ambulation slowly improving Denies any chest pain, dyspnea, nausea, vomiting, abdominal pain, dysuria, hematuria Discussed with patient's son at bedside Review of Systems Review of Systems: All systems reviewed & are unremarkable except as noted in Subjective Physical Exam Physical Exam: Physical Exam: Vitals signs as noted above General Appearance:Moderately built and nourished, no apparent distress Head: normocephalic, Atraumatic Eyes: normal inspection, EOMI Neck: supple, Trachea midline Respiratory/Chest: Normal breath sounds, CTA, No accessory muscle use Cardiovascular: S1, S2, No murmur Abdomen/GI:Soft, Non tender, Bowel sounds present Extremities/Musculoskeletal:normal inspection, no edema Neurologic/Psych:AAOX3, grossly no focal neurological deficits,+ resting tremor Skin: normal color, warm Results & Data Results & Data Vital Signs (Past 12 Hours) Vital Signs Temp Pulse Resp BP Pulse Ox O2 Del Method 09/20/25 07:25 36.8 C 88 16 178/80 H 94 Room Air Laboratory Results Urine 09/20/25 Range/Units 04:40 Urine Color Dark Yellow Urine Appearance Clear (Clear) Urine pH 6.5 (4.5-7.5) Ur Specific [place] 1.016 (1.000-1.030) Urine Protein Negative (Negative) Urine Glucose (UA) Negative (Negative)
[2025-09-20] MEDS: HEPARIN SOD 5,000 UNIT/0.5 ML VIAL SQ SCH (20:28)
--- NOTE | 2025-09-21 16:13 | Hospitalist Progress Note ---
Date of Service September 21, 2025 Assessment & Plan (1) Generalized weakness: Plan: 65-year-old female with past medical history significant for type 2 diabetes, hypothyroidism, right breast cancer, Hyperlipidemia, osteoarthritis, Parkinson disease with dyskinesia, glaucoma both eyes, recurrent depression was brought in by son because of ongoing weakness. Patient recently moved from [place]. Son says she used to take carbidopa levodopa 8 tablets a day. When she saw neurologist here she complained of being on too many pills and the levodopa carbidopa dose was reduced to 3 tablets a day. Son thinks since then patient has declined. She was feeling nauseous and weak. Which she is to take 1 minute to walk before now takes 10 minutes. She went to [facility] ER twice and PCP office once and was told her symptoms were because of change in medi cations as per son. As per son her PCP told her to go back to taking 8 pills a day but patient is currently taking only 2 pills. As per son since last 1 week patient really went downhill with her weakness nausea. Patient is alert and awake. Denies any headache. Denies any chest pain. Denies any abdominal pain. Somewhat constipated. Micturating okay. No fevers. No difficulty swallowing. Vision is blurry. No sore throat or cough. Hemodynamics okay. Generalized weakness Possibly secondary to Parkinson's disease Acute UTI --H/O Parkinson's disease; with multiple medication changes in the last few weeks. --Urine culture noncontributory -- Empirically on IV Rocephin Continue carbidopa 25-levodopa 100-entacapone 200 one tab TID Appreciate neurology input Continue PT OT Continue teds Received IV fluids Slowly improving Needs follow-up with neurology on discharge Insurance denied acute rehab placement Likely discharge home with home health tomorrow Type 2 diabetes HbA1c 6.2 Hold metformin Continue insulin while hospitalized Monitor blood glucose levels Depression Continue citalopram Hyperlipidemia Continue statin Hypothyroidism Continue levothyroxine Hypertension On losartan-continue Monitor blood pressure DVT prophylaxis Heparin SQ CODE STATUS Full code Disposition Likely home with home health Admission and Anticipated Discharge Date Admission Date: September 18, 2025 Subjective Patient is seen and examined at bedside Weakness continues to improve Evaluated by PT earlier today No new complaints Denies any chest pain, dyspnea, nausea, vomiting, abdominal pain, dysuria, hematuria Discussed with patient's son at bedside Review of Systems Review of Systems: All systems reviewed & are unremarkable except as noted in Subjective Physical Exam Physical Exam: Physical Exam: Vitals signs as noted above General Appearance:Moderately built and nourished, no apparent distress Head: normocephalic, Atraumatic Eyes: normal inspection, EOMI Neck: supple, Trachea midline Respiratory/Chest: Normal breath sounds, CTA, No accessory muscle use Cardiovascular: S1, S2, No murmur Abdomen/GI:Soft, Non tender, Bowel sounds present Extremities/Musculoskeletal:normal inspection, no edema Neurologic/Psych:AAOX3, grossly no focal neurological deficits,+ resting tremor Skin: normal color, warm Results & Data Results & Data Vital Signs (Past 12 Hours) Vital Signs Temp Pulse Resp BP Pulse Ox O2 Del Method 09/21/25 15:23 36.9 C 86 16 131/75 94 Room Air 09/21/25 07:49 36.9 C 96 H 16 167/92 H 94 Room Air
[2025-09-22 08:20] VITALS: BP 160/82; PULSE 89; RESP 18; TEMP 98.2; O2SAT 91
--- NOTE | 2025-09-22 08:48 | Hospitalist Progress Note ---
Date of Service September 22, 2025 Assessment & Plan (1) Generalized weakness: Plan: 65-year-old female with past medical history significant for type 2 diabetes, hypothyroidism, right breast cancer, Hyperlipidemia, osteoarthritis, Parkinson disease with dyskinesia, glaucoma both eyes, recurrent depression was brought in by son because of ongoing weakness. Patient recently moved from [place]. Son says she used to take carbidopa levodopa 8 tablets a day. When she saw neurologist here she complained of being on too many pills and the levodopa carbidopa dose was reduced to 3 tablets a day. Son thinks since then patient has declined. She was feeling nauseous and weak. Which she is to take 1 minute to walk before now takes 10 minutes. She went to [facility] ER twice and PCP office once and was told her symptoms were because of change in medi cations as per son. As per son her PCP told her to go back to taking 8 pills a day but patient is currently taking only 2 pills. As per son since last 1 week patient really went downhill with her weakness nausea. Patient is alert and awake. Denies any headache. Denies any chest pain. Denies any abdominal pain. Somewhat constipated. Micturating okay. No fevers. No difficulty swallowing. Vision is blurry. No sore throat or cough. Hemodynamics okay. Generalized weakness Possibly secondary to Parkinson's disease Acute UTI --H/O Parkinson's disease; with multiple medication changes in the last few weeks. --Urine culture noncontributory -- Empirically on IV Rocephin Continue carbidopa 25-levodopa 100-entacapone 200 one tab TID Appreciate neurology input Continue PT OT Continue teds Received IV fluids Slowly improving Needs follow-up with neurology on discharge Insurance denied acute rehab placement Plan to discharge home with home health today Type 2 diabetes HbA1c 6.2 Hold metformin Continue insulin while hospitalized Monitor blood glucose levels Depression Continue citalopram Hyperlipidemia Continue statin Hypothyroidism Continue levothyroxine Hypertension On losartan-continue Monitor blood pressure DVT prophylaxis Heparin SQ CODE STATUS Full code Disposition Home with home health Admission and Anticipated Discharge Date Admission Date: September 18, 2025 Subjective Patient is seen and examined at bedside States feeling tired No other complaints Discussed with patient's son at bedside Generalized weakness continues to improve Denies any chest pain, dyspnea, nausea, vomiting, abdominal pain, dysuria, hematuria Plan to discharge home today Review of Systems Review of Systems: All systems reviewed & are unremarkable except as noted in Subjective Physical Exam Physical Exam: Physical Exam: Vitals signs as noted above General Appearance:Moderately built and nourished, no apparent distress Head: normocephalic, Atraumatic Eyes: normal inspection, EOMI Neck: supple, Trachea midline Respiratory/Chest: Normal breath sounds, CTA, No accessory muscle use Cardiovascular: S1, S2, No murmur Abdomen/GI:Soft, Non tender, Bowel sounds present Extremities/Musculoskeletal:normal inspection, no edema Neurologic/Psych:AAOX3, grossly no focal neurological deficits,+ resting tremor Skin: normal color, warm Results & Data Results & Data Vital Signs (Past 12 Hours) Vital Signs Temp Pulse Resp BP Pulse Ox O2 Del Method 09/22/25 08:16 36.8 C 89 18 160/82 H 91 Room Air 09/21/25 22:25 36.7 C 75 16 138/80 96 Room Air
--- NOTE | 2025-09-22 11:46 | Discharge Summary ---
Date of Service September 22, 2025 Admission HPI Per Admitting Provider 65-year-old female with past medical history significant for type 2 diabetes, hypothyroidism, right breast cancer, Hyperlipidemia, osteoarthritis, Parkinson disease with dyskinesia, glaucoma both eyes, recurrent depression was brought in by son because of ongoing weakness. Patient recently moved from [place]. Son says she used to take carbidopa levodopa 8 tablets a day. When she saw neurologist here she complained of being on too many pills and the levodopa carbidopa dose was reduced to 3 tablets a day. Son thinks since then patient has declined. She was feeling nauseous and weak. Which she is to take 1 minute to walk before now takes 10 minutes. She went to [facility] ER twice and PCP office once and was told her symptoms were because of change in medications as per son. As per son her PCP told her to go back to taking 8 pills a day but patient is currently taking only 2 pills. As per son since last 1 week patient really went downhill with her weakness nausea. Patient is alert and awake. Denies any headache. Denies any chest pain. Denies any abdominal pain. Somewhat constipated. Micturating okay. No fevers. No difficulty swallowing. Vision is blurry. No sore throat or cough. Hemodynamics okay. Past medical history. As mentioned above. Past surgical history. Lasering of second current tract. Partial right mastectomy. Radiation treatment. Chemotherapy. Cataracts total hysterectomy. Social history. No smoking. No alcohol use.. No drug use. Family history. No family history on file. Admission Exam Per Admitting Provider General- Not in distress Head- atraumatic Eyes- PERRL. ENT- oropharynx clear Neck- supple, no JVD. Lungs- clear to auscultation no wheezing or crackles Heart- regular rhythm; no murmur, no gallop. Abdomen- normal bowel sounds, soft, nontender, no distension Extremities- lower ext edema present, no erythema seen Neuro- alert, oriented PERRL, no facial palsy; no dysarthria; moves extremities Principal Diagnosis Parkinson's disease Urinary tract infection Generalized weakness Hypertension Discharge Data Allergies Allergy/AdvReac Type Severity Reaction Status Date / Time lisinopril Allergy Swelling Verified 09/18/25 22:02 of Lip/Tongue/Throat Consultations 09/18/25 21:17 ED Decision to Admit Stat 09/19/25 08:00 Consult Neurology Routine Procedures Performed Laboratory Results WBC 6.38 K/ul (4.8-10.8) 09/19/25 06:35 RBC 4.14 M/uL (4.20-5.40) L 09/19/25 06:35 Hgb 12.5 g/dl (12.0-16.0) 09/19/25 06:35 Hct 37.6 % (37.0-47.0) 09/19/25 06:35 MCV 90.8 fL (80.0-100.0) 09/19/25 06:35 MCH 30.2 pg (25.0-34.0) 09/19/25 06:35 MCHC 33.2 g/dL (32.0-36.0) 09/19/25 06:35 RDW Std Deviation 44.7 fL (36.4-46.3) 09/19/25 06:35 RDW Coeff of Gely 13.4 % (11.5-14.5) 09/19/25 06:35 Plt Count 314 K/uL (130-400) 09/19/25 06:35 MPV 9.5 fL (9.4-12.4) 09/19/25 06:35 Immature Gran % (Auto) 0.2 % 09/19/25 06:35 Neut % (Auto) 61.9 % 09/19/25 06:35 Lymph % (Auto) 28.7 % 09/19/25 06:35 [place] % (Auto) 6.4 % 09/19/25 06:35 Eos % (Auto) 1.9 % 09/19/25 06:35 Baso % (Auto) 0.9 % 09/19/25 06:35 Neut # (Auto) 3.95 K/uL (1.40-6.50) 09/19/25 06:35 Lymph # (Auto) 1.83 K/uL (1.20-3.40) 09/19/25 06:35 [place] # (Auto) 0.41 K/uL (0.11-0.59) 09/19/25 06:35 Eos # (Auto) 0.12 K/uL (0.00-0.50) 09/19/25 06:35 Baso # (Auto) 0.06 K/uL (0.00-0.20) 09/19/25 06:35 Immature Gran # (Auto) 0.01 K/uL (0.01-0.20) 09/19/25 06:35 D-Dimer 350 ug/L FEU (0-500) 09/19/25 06:35 Sodium 143 mmol/L (136-145) 09/19/25 06:35 Potassium 3.8 mmol/L (3.5-5.1) 09/19/25 06:35 Chloride 106 mmol/L (98-107) 09/19/25 06:35 Carbon Dioxide 30 mmol/L (21-32) 09/19/25 06:35 Anion Gap 7 (3-11) 09/19/25 06:35 BUN 15 mg/dl (6-23) 09/19/25 06:35 Creatinine 0.65 mg/dl (0.6-1.2) 09/19/25 06:35 Est Cr Clr Drug Dosing 76.7 ml/min 09/19/25 06:35 eGFR 96.44 09/19/25 06:35 BUN/Creatinine Ratio 23.1 (10-20) H 09/19/25 06:35 Glucose 107 mg/dl (70-99(Fasting)) H 09/19/25 06:35 POC Glucose 131 mg/dl (70-99) H 09/19/25 21:14 Estimat Average Glucose 131 mg/dl 09/19/25 06:35 Hemoglobin A1c 6.2 % (4.5-5.6) H 09/19/25 06:35 Calcium 9.1 mg/dl (8.6-10.3) 09/19/25 06:35 Magnesium 2.3 mg/dl (1.7-2.4) 09/19/25 06:35 Total Bilirubin 0.4 mg/dl (0.2-1.0) 09/18/25 16:48 AST 23 U/L (13-39) 09/18/25 16:48 ALT 18 U/L (7-52) 09/18/25 16:48 Alkaline Phosphatase 55 U/L (34-104) 09/18/25 16:48 C-Reactive Protein < 0.50 mg/dl (0-0.5) 09/18/25 16:48 Total Protein 8.0 gm/dl (6.0-8.3) 09/18/25 16:48 Albumin 4.1 gm/dl (3.4-5.0) 09/18/25 16:48 Globulin 3.9 gm/dl (2.5-4.0) 09/18/25 16:48 Albumin/Globulin Ratio 1.1 (0.9-2) 09/18/25 16:48 Vitamin B12 > 1500 pg/ml (180-914) H 09/20/25 07:02 TSH 4.026 uIu/ml (0.300-4.500) 09/18/25 16:48 Urine Color Dark Yellow 09/20/25 04:40 Urine Appearance Clear (Clear) 09/20/25 04:40 Urine pH 6.5 (4.5-7.5) 09/20/25 04:40 Ur Specific [place] 1.016 (1.000-1.030) 09/20/25 04:40 Urine Protein Negative (Negative) 09/20/25 04:40 Urine Glucose (UA) Negative (Negative) 09/20/25 04:40 Urine Ketones Negative (Negative) 09/20/25 04:40 Urine Blood Negative (Negative) 09/20/25 04:40 Urine Nitrite Negative (Negative) 09/20/25 04:40 Urine Bilirubin Negative (Negative) 09/20/25 04:40 Urine Urobilinogen Negative (Negative) 09/20/25 04:40 Ur Leukocyte Esterase Trace (Negative) H 09/20/25 04:40 Urine WBC (Auto) 0-5 /hpf (0-5) 09/20/25 04:40 Urine RBC (Auto) 0-2 /hpf (0-2) 09/20/25 04:40 U Hyaline Cast (Auto) 0-2 /lpf (0-2) 09/20/25 04:40 U Epithel Cells (Auto) 3-5 /hpf (0-2) H 09/20/25 04:40 Urine Bacteria (Auto) None Seen (None Seen) 09/20/25 04:40 Urine Comment 09/20/25 04:40 Hospital Course (1) Generalized weakness: 65-year-old female with past medical history significant for type 2 diabetes, hypothyroidism, right breast cancer, Hyperlipidemia, osteoarthritis, Parkinson disease with dyskinesia, glaucoma both eyes, recurrent depression was brought in by son because of ongoing weakness. Patient recently moved from [place]. Son says she used to take carbidopa levodopa 8 tablets a day. When she saw neurologist here she complained of being on too many pills and the levodopa carbidopa dose was reduced to 3 tablets a day. Son thinks since then patient has declined. She was feeling nauseous and weak. Which she is to take 1 minute to walk before now takes 10 minutes. She went to [facility] ER twice and PCP office once and was told her symptoms were because of change in medications as per son. As per son her PCP told her to go back to taking 8 pills a day but patient is currently taking only 2 pills. As per son since last 1 week patient really went downhill with her weakness nausea. Patient is alert and awake. Denies any headache. Denies any chest pain. Denies any abdominal pain. Somewhat constipated. Micturating okay. No fevers. No difficulty swallowing. Vision is blurry. No sore throat or cough. Hemodynamics okay. Generalized weakness Possibly secondary to Parkinson's disease Acute UTI --H/O Parkinson's disease; with multiple medication changes in the last few weeks. --Urine culture noncontributory -- Empirically on IV Rocephin Continue carbidopa 25-levodopa 100-entacapone 200 one tab TID Appreciate neurology input Continue PT OT Continue teds Received IV fluids Slowly improving Needs follow-up with neurology on discharge Insurance denied acute rehab placement Plan to discharge home with home health today Type 2 diabetes HbA1c 6.2 Hold metformin Continue insulin while hospitalized Monitor blood glucose levels Depression Continue citalopram Hyperlipidemia Continue statin Hypothyroidism Continue levothyroxine Hypertension On losartan-continue Monitor blood pressure DVT prophylaxis Heparin SQ CODE STATUS Full code Disposition Home with home health Total Time Total Time Spent Total Time Spent (In Minutes): 48 minutes Discharge Plan Discharge Items Patient Disposition: Home - Home Health Services Reason For Visit: WEAKNESS, UTI Discharge Diagnosis: Parkinson's disease Urinary tract infection Generalized weakness Hypertension Condition on Discharge: Fair Activity: Resume your previous activity Exercise/Sports: Gradually increase as tolerated Non-emergency contact: Primary Care Provider and Neurologist Call non-emergency contact if: you have any medication questions, your symptoms worsen, your pain is concerning for you and you have a fever Follow-up/Referrals: Edilson Ann M.D. [Primary Care Provider] - Diet: Heart Healthy Addtl Attending Provider Instructions: -- Follow-up with your primary care physician Dr. Ann in 1 week --Follow-up with your neurologist in 3 to 4 weeks as recommended -- Monitor your blood pressure regularly at home and discuss with your primary care physician for further adjustment of medications as needed. -- You are vitamin B12 level is noted to be increased on blood work. Take vitamin B12 supplements every other day instead of daily for now. Seek immediate medical attention if your symptoms reoccur or worsen Please review medication list provided on discharge for any medication changes as instructed. Please call if you have any questions or problems. You can reach a [facility] hospitalist on duty at [facility] 24 hours a day by calling [phone] Pending Studies at Discharge: No Stand-Alone Forms: My [facility] [employer] Smoking Cessation Medications and DC Order Prescriptions: Continued losartan 50 mg tablet 50 mg PO DAILY latanoprost 0.005 % drops 1 drp OPB HS citalopram 40 mg tablet 40 mg PO DAILY pravastatin 40 mg tablet 40 mg PO DAILY levothyroxine 25 mcg tablet 25 mcg PO DAILY metformin 1,000 mg tablet 1,000 mg PO DAILY buspirone 10 mg tablet 10 mg PO BID [id number]-pimhnogd-ycwgcvklrl 25-100-200 mg tablet 1 tab PO TID polyethylene glycol 3350 [Miralax] 17 gram Powder In Packet 17 g PO DAILY PRN (Reason: Constipation) Changed cyanocobalamin (vitamin B-12) 250 mcg Tablet 250 mcg PO Q2D Qty: 0 0RF Discharge Orders: Discharge Order (Routine); Ordered 09/22/25 Ordered By: Flakito Dover/Other Patient Handouts: Managing Type 2 Diabetes Admission Data Admit Date/Time: 09/18/25 23:26 Attending Provider: Flakito Montes Admit Provider: Anderson Ceja Primary Care Provider: Edilson Ann Other Providers: Anderson Ceja; Ginger English; Zi Waller; Ginger Carmona; Mina Leyva; Sravan Valadez; Michael Madera; Héctor Conde; Grace Hernandez; Ronnie Ponce; Jc Sue; Jessica Vera; Damir Santana; Tamela Del Cid; Héctor Gay; Berenice Moya; Seema Julien; Douglas Schaeffer; [facility]
== END 2025-09-22 13:43 | disposition home health service (06) | DRG 57 ==
LOC: ED 16:27 → 3E 23:26 → SUATTDRO 23:26 → INTOOBSV 23:26 → 3E 09-19 00:19

== ENCOUNTER 2025-10-06 19:20 | Observation (INO) ==
--- NOTE | 2025-10-06 20:46 | Emergency Department Note ---
Impression & Plan Acute UTI (urinary tract infection), Parkinson's disease, Generalized weakness ED Provider Note Provider: Timbo Kent MD CHIEF COMPLAINT: Weakness, UTI HISTORY OF PRESENT ILLNESS: Patient is a 65-year-old female history of Parkinson disease and hospitalization for UTI presenting here today after evaluation last night diagnosed with UTI. Received antibiotics last night but was unable to take oral antibiotics yet as her son just got home from work and brought them with him. Patient today is having limited having some sweats and increased weakness unable to get out of bed. Did not fall however. Has eaten some today. Feels a bit hungry now. No vomiting. No significant abdominal or back pain. No chest pain or shortness of breath or cough or cold symptoms reported. Son expresses frustration that her his mother's been ill several times with UTIs over the past several weeks including a hospitalization here. He is concerned there could be something occult going on and she is not have additional abdominal imaging at this point. PAST MEDICAL HISTORY: As noted above MEDICATIONS: Reviewed home medications SOCIAL HISTORY: Lives at home with son, speaks some Citizen [place] PHYSICAL EXAM: GENERAL: alert and oriented in no acute distress on stretcher Head: normocephalic and atraumatic EYES: No injection, discharge or icterus. EOMI. NECK: Trachea midline. ENT: Mucous membranes pink and moist. LUNGS: Airway patent. No retractions or tachypnea HEART: Regular rate and rhythm. No chest wall tenderness ABDOMEN: Soft and non-tender, without guarding or rebound. SKIN: Acyanotic, warm, dry, without rashes EXTREMITIES: Without swelling, tenderness or deformity NEUROLOGICAL: No focal deficits. No aphasia. No facial droop or slurred speech. CONTINUOUS CARDIAC MONITORING: was ordered and showed a heart rate of 80s to 90s bpm in normal sinus rhythm Patient's laboratory studies and imaging reviewed. Differential includes Infection, dehydration, metabolic abnormality, hypo/hyperglycemia, electrolyte disturbance, anemia, hypoxia, cardiac sources, intracerebral event, toxicologic, neurologic, as well as other pathologies. IMPRESSION/MEDICAL DECISION MAKING: Patient increased weakness and some sweats diagnosed as UTI last night. Patient afebrile here. Not hypoxic. Not distressed. Son present at bedside provides additional history. No trauma history likely. No syncope reported. Urine culture pending from last night but urinalysis does appear to show infection. Given additional dose of IV ceftriaxone that she received from last night. Given some IV fluid and evening dose of Parkinson's medication. Son with significant frustration given the recurrent episodes and requests abdominal imaging. Will obtain although I doubt this represents a stone and she is not in any distress and is a benign abdomen. Blood work here with slightly improved white blood cell count of 7.3 from 7.9 yesterday. No anemia. No significant lecture light abnormality signs of renal dysfunction. No troponin elevation. Urinalysis questionably infected versus contaminated. Has been on antibiotics. Urine culture again is still pending from last night. CT completed the abdomen pelvis but again patient with reassuring abdomen. Given her weakness however certainly further observation and care here at the hospital for improvement would be reasonable. Reached out to the hospitalist team for further care here. DIAGNOSIS: Weakness, acute UTI, Parkinson disease DISPOSITION: Hospitalist will evaluate Patient was agreeable with this plan. Past Med/Surg History Problem List (Updated 10/06/25 @ 23:53 by Timbo Kent M.D.) Acute UTI (Acute) Lower urinary tract symptoms (LUTS) (Acute) Parkinson disease (Acute) Acute UTI (urinary tract infection) (Acute) Parkinson's disease (Acute) Adverse drug effect (Acute) Tremors of nervous system (Acute) Generalized weakness (Acute) Social History Smoking Status: Never smoker Hx Alcohol Use: No Hx Substance Use: No Preferred Language: Citizen [place] Communication Ability: Effective Hand Stoner Required: No Beliefs That Will Affect Care: None Current Living Situation: Family Current Living Situation Comment: lives with son and grand daughter Feels Safe at Home: Yes Assistive Devices: Cane and Walker Allergies Allergies Allergy/AdvReac Type Severity Reaction Status Date / Time lisinopril Allergy Swelling Verified 09/18/25 22:02 of Lip/Tongue/Throat Home Meds Home Medications Medication Instructions Recorded Confirmed buspirone 10 mg tablet 10 mg PO BID 09/18/25 10/06/25 carbidopa 25 mg-levodopa 100 1 tab PO TID 09/18/25 10/06/25 mg-entacapone 200 mg tablet citalopram 40 mg tablet 40 mg PO QAM 09/18/25 10/06/25 latanoprost 0.005 % eye drops 1 drp OPB HS 09/18/25 10/06/25 levothyroxine 25 mcg tablet 25 mcg PO DAILYBB 09/18/25 10/06/25 losartan 50 mg tablet 50 mg PO QAM 09/18/25 10/06/25 metformin 1,000 mg tablet 1,000 mg PO QAM 09/18/25 10/06/25 polyethylene glycol 3350 17 gram 17 g PO DAILY PRN Constipation 09/18/25 10/06/25 oral powder packet (Miralax) pravastatin 40 mg tablet 40 mg PO QAM 09/18/25 10/06/25 estradiol 0.01% (0.1 mg/gram) 1 applic vaginal QAM 10/06/25 10/06/25 vaginal cream Previous Rx's Medication Instructions Recorded cyanocobalamin (vitamin B-12) 250 250 mcg PO Q2D #0 tabs 09/22/25 mcg tablet cephalexin 500 mg capsule 500 mg PO TID 10 days #30 caps 10/06/25 Results & Data (ED) Vital Signs Vital Signs - 24 hr 10/06/25 19:20 10/06/25 19:29 10/06/25 20:17 Temperature 36.8 C Temperature Source Oral Pulse Rate 89 Pulse Rate [Right Finger] 86 Pulse Rate from SpO2 Sensor Respiratory Rate 18 18 87 H Respiratory Effort / Characteristics Non-Labored Spontaneous Respiratory Depth Normal Respiratory Pattern Regular Blood Pressure 150/87 H Blood Pressure [Left Arm] 158/83 H Blood Pressure Mean 108 Blood Pressure Mean [Left Arm] 108 Blood Pressure Position Sitting Pulse Oximetry 98 96 98 Oxygen Delivery Method Room Air Room Air Room Air Sepsis Recent Fever Within 48 Hours No Sepsis New/Unexplained Change in Mental Status N/A Sepsis Action Taken by Nursing No Action Required 10/06/25 20:22 10/06/25 20:22 10/06/25 20:22 Temperature Temperature Source Pulse Rate Pulse Rate [Right Finger] Pulse Rate from SpO2 Sensor Respiratory Rate Respiratory Effort / Characteristics Respiratory Depth Respiratory Pattern Blood Pressure 154/91 H 154/91 H 154/91 H Blood Pressure [Left Arm] Blood Pressure Mean 115 115 115 Blood Pressure Mean [Left Arm] Blood Pressure Position Pulse Oximetry Oxygen Delivery Method Sepsis Recent Fever Within 48 Hours Sepsis New/Unexplained Change in Mental Status Sepsis Action Taken by Nursing 10/06/25 20:22 10/06/25 20:24 10/06/25 20:30 Temperature Temperature Source Pulse Rate 116 H Pulse Rate [Right Finger] Pulse Rate from SpO2 Sensor 85 Respiratory Rate 21 Respiratory Effort / Characteristics Respiratory Depth Respiratory Pattern Blood Pressure 154/91 H 158/83 H Blood Pressure [Left Arm] Blood Pressure Mean 115 102 Blood Pressure Mean [Left Arm] Blood Pressure Position Pulse Oximetry 94 Oxygen Delivery Method Sepsis Recent Fever Within 48 Hours Sepsis New/Unexplained Change in Mental Status Sepsis Action Taken by Nursing 10/06/25 20:30 10/06/25 20:30 10/06/25 20:30 Temperature Temperature Source Pulse Rate Pulse Rate [Right Finger] Pulse Rate from SpO2 Sensor Respiratory Rate Respiratory Effort / Characteristics Respiratory Depth Respiratory Pattern Blood Pressure 158/83 H 158/83 H 158/83 H Blood Pressure [Left Arm] Blood Pressure Mean 102 102 102 Blood Pressure Mean [Left Arm] Blood Pressure Position Pulse Oximetry Oxygen Delivery Method Sepsis Recent Fever Within 48 Hours Sepsis New/Unexplained Change in Mental Status Sepsis Action Taken by Nursing 10/06/25 20:30 10/06/25 20:30 10/06/25 20:33 Temperature Temperature Source Pulse Rate 79 81 Pulse Rate [Right Finger] Pulse Rate from SpO2 Sensor 78 80 Respiratory Rate 20 21 Respiratory Effort / Characteristics Respiratory Depth Respiratory Pattern Blood Pressure 158/83 H Blood Pressure [Left Arm] Blood Pressure Mean 102 Blood Pressure Mean [Left Arm] Blood Pressure Position Pulse Oximetry 94 94 Oxygen Delivery Method Sepsis Recent Fever Within 48 Hours Sepsis New/Unexplained Change in Mental Status Sepsis Action Taken by Nursing 10/06/25 21:04 10/06/25 21:04 10/06/25 21:04 Temperature Temperature Source Pulse Rate Pulse Rate [Right Finger] Pulse Rate from SpO2 Sensor Respiratory Rate Respiratory Effort / Characteristics Respiratory Depth Respiratory Pattern Blood Pressure 166/88 H 166/88 H 166/88 H Blood Pressure [Left Arm] Blood Pressure Mean 119 119 119 Blood Pressure Mean [Left Arm] Blood Pressure Position Pulse Oximetry Oxygen Delivery Method Sepsis Recent Fever Within 48 Hours Sepsis New/Unexplained Change in Mental Status Sepsis Action Taken by Nursing 10/06/25 21:04 10/06/25 21:04 10/06/25 21:15 Temperature Temperature Source Pulse Rate Pulse Rate [Right Finger] Pulse Rate from SpO2 Sensor 83 Respiratory Rate Respiratory Effort / Characteristics Respiratory Depth Respiratory Pattern Blood Pressure 166/88 H 166/88 H Blood Pressure [Left Arm] Blood Pressure Mean 119 119 Blood Pressure Mean [Left Arm] Blood Pressure Position Pulse Oximetry 96 Oxygen Delivery Method Sepsis Recent Fever Within 48 Hours Sepsis New/Unexplained Change in Mental Status Sepsis Action Taken by Nursing 10/06/25 21:21 10/06/25 21:30 10/06/25 21:30 Temperature Temperature Source Pulse Rate 85 76 Pulse Rate [Right Finger] Pulse Rate from SpO2 Sensor 85 76 Respiratory Rate 20 21 Respiratory Effort / Characteristics Respiratory Depth Respiratory Pattern Blood Pressure 154/75 H Blood Pressure [Left Arm] Blood Pressure Mean 113 Blood Pressure Mean [Left Arm] Blood Pressure Position Pulse Oximetry 96 96 Oxygen Delivery Method Sepsis Recent Fever Within 48 Hours Sepsis New/Unexplained Change in Mental Status Sepsis Action Taken by Nursing 10/06/25 21:30 10/06/25 21:30 10/06/25 21:30 Temperature Temperature Source Pulse Rate Pulse Rate [Right Finger] Pulse Rate from SpO2 Sensor Respiratory Rate Respiratory Effort / Characteristics Respiratory Depth Respiratory Pattern Blood Pressure 154/75 H 154/75 H 154/75 H Blood Pressure [Left Arm] Blood Pressure Mean 113 113 113 Blood Pressure Mean [Left Arm] Blood Pressure Position Pulse Oximetry Oxygen Delivery Method Sepsis Recent Fever Within 48 Hours Sepsis New/Unexplained Change in Mental Status Sepsis Action Taken by Nursing 10/06/25 21:30 10/06/25 21:42 10/06/25 21:45 Temperature Temperature Source Pulse Rate 120 H 81 Pulse Rate [Right Finger] Pulse Rate from SpO2 Sensor Respiratory Rate 16 20 Respiratory Effort / Characteristics Respiratory Depth Respiratory Pattern Blood Pressure 154/75 H Blood Pressure [Left Arm] Blood Pressure Mean 113 Blood Pressure Mean [Left Arm] Blood Pressure Position Pulse Oximetry Oxygen Delivery Method Sepsis Recent Fever Within 48 Hours Sepsis New/Unexplained Change in Mental Status Sepsis Action Taken by Nursing 10/06/25 21:46 10/06/25 21:46 10/06/25 21:46 Temperature Temperature Source Pulse Rate Pulse Rate [Right Finger] Pulse Rate from SpO2 Sensor Respiratory Rate Respiratory Effort / Characteristics Respiratory Depth Respiratory Pattern Blood Pressure 197/78 H 197/78 H 197/78 H Blood Pressure [Left Arm] Blood Pressure Mean 140 140 140 Blood Pressure Mean [Left Arm] Blood Pressure Position Pulse Oximetry Oxygen Delivery Method Sepsis Recent Fever Within 48 Hours Sepsis New/Unexplained Change in Mental Status Sepsis Action Taken by Nursing 10/06/25 21:46 10/06/25 21:46 10/06/25 21:51 Temperature Temperature Source Pulse Rate 85 Pulse Rate [Right Finger] Pulse Rate from SpO2 Sensor 249 H Respiratory Rate 20 Respiratory Effort / Characteristics Respiratory Depth Respiratory Pattern Blood Pressure 197/78 H 197/78 H Blood Pressure [Left Arm] Blood Pressure Mean 140 140 Blood Pressure Mean [Left Arm] Blood Pressure Position Pulse Oximetry 97 Oxygen Delivery Method Sepsis Recent Fever Within 48 Hours Sepsis New/Unexplained Change in Mental Status Sepsis Action Taken by Nursing 10/06/25 22:00 10/06/25 22:01 10/06/25 22:01 Temperature Temperature Source Pulse Rate 128 H Pulse Rate [Right Finger] Pulse Rate from SpO2 Sensor 81 Respiratory Rate 21 Respiratory Effort / Characteristics Respiratory Depth Respiratory Pattern Blood Pressure 187/75 H 187/75 H Blood Pressure [Left Arm] Blood Pressure Mean 145 145 Blood Pressure Mean [Left Arm] Blood Pressure Position Pulse Oximetry 95 Oxygen Delivery Method Sepsis Recent Fever Within 48 Hours Sepsis New/Unexplained Change in Mental Status Sepsis Action Taken by Nursing 10/06/25 22:01 10/06/25 22:01 10/06/25 22:01 Temperature Temperature Source Pulse Rate Pulse Rate [Right Finger] Pulse Rate from SpO2 Sensor Respiratory Rate Respiratory Effort / Characteristics Respiratory Depth Respiratory Pattern Blood Pressure 187/75 H 187/75 H 187/75 H Blood Pressure [Left Arm] Blood Pressure Mean 145 145 145 Blood Pressure Mean [Left Arm] Blood Pressure Position Pulse Oximetry Oxygen Delivery Method Sepsis Recent Fever Within 48 Hours Sepsis New/Unexplained Change in Mental Status Sepsis Action Taken by Nursing 10/06/25 22:12 10/06/25 22:15 10/06/25 22:15 Temperature Temperature Source Pulse Rate 81 Pulse Rate [Right Finger] Pulse Rate from SpO2 Sensor Respiratory Rate 22 Respiratory Effort / Characteristics Respiratory Depth Respiratory Pattern Blood Pressure 187/84 H 187/84 H Blood Pressure [Left Arm] Blood Pressure Mean 124 124 Blood Pressure Mean [Left Arm] Blood Pressure Position Pulse Oximetry 90 Oxygen Delivery Method Sepsis Recent Fever Within 48 Hours Sepsis New/Unexplained Change in Mental Status Sepsis Action Taken by Nursing 10/06/25 22:15 10/06/25 22:16 10/06/25 22:16 Temperature Temperature Source Pulse Rate 79 Pulse Rate [Right Finger] Pulse Rate from SpO2 Sensor 80 Respiratory Rate 23 Respiratory Effort / Characteristics Respiratory Depth Respiratory Pattern Blood Pressure 144/80 H 144/80 H Blood Pressure [Left Arm] Blood Pressure Mean 108 108 Blood Pressure Mean [Left Arm] Blood Pressure Position Pulse Oximetry 95 Oxygen Delivery Method Sepsis Recent Fever Within 48 Hours Sepsis New/Unexplained Change in Mental Status Sepsis Action Taken by Nursing 10/06/25 22:16 10/06/25 22:16 10/06/25 22:16 Temperature Temperature Source Pulse Rate Pulse Rate [Right Finger] Pulse Rate from SpO2 Sensor Respiratory Rate Respiratory Effort / Characteristics Respiratory Depth Respiratory Pattern Blood Pressure 144/80 H 144/80 H 144/80 H Blood Pressure [Left Arm] Blood Pressure Mean 108 108 108 Blood Pressure Mean [Left Arm] Blood Pressure Position Pulse Oximetry Oxygen Delivery Method Sepsis Recent Fever Within 48 Hours Sepsis New/Unexplained Change in Mental Status Sepsis Action Taken by Nursing 10/06/25 22:21 10/06/25 22:48 10/06/25 23:00 Temperature Temperature Source Pulse Rate 78 90 81 Pulse Rate [Right Finger] Pulse Rate from SpO2 Sensor 78 Respiratory Rate 20 16 13 Respiratory Effort / Characteristics Respiratory Depth Respiratory Pattern Blood Pressure 155/86 H 136/68 Blood Pressure [Left Arm] Blood Pressure Mean 109 90 Blood Pressure Mean [Left Arm] Blood Pressure Position Pulse Oximetry 98 97 Oxygen Delivery Method Sepsis Recent Fever Within 48 Hours Sepsis New/Unexplained Change in Mental Status Sepsis Action Taken by Nursing Laboratory Data 10/06/25 20:11 10/06/25 20:11 Lab Results 10/06/25 10/06/25 10/06/25 Range/Units 20:00 20:11 22:28 WBC 7.31 (4.8-10.8) K/ul RBC 4.08 L (4.20-5.40) M/uL Hgb 12.6 (12.0-16.0) g/dL Hct 36.6 L (37.0-47.0) % MCV 89.7 (80.0-100.0) fL MCH 30.9 (25.0-34.0) pg MCHC 34.4 (32.0-36.0) g/dL RDW Std Deviation 44.6 (36.4-46.3) fL RDW Coeff of [place]ely 13.7 (11.5-14.5) % Plt Count 318 (130-400) K/uL MPV 9.9 (9.4-12.4) fL Immature Gran % (Auto) 0.1 % Neut % (Auto) 67.3 % Lymph % (Auto) 22.2 % [place] % (Auto) 8.5 % Eos % (Auto) 1.4 % Baso % (Auto) 0.5 % Neut # (Auto) 4.92 (1.40-6.50) K/uL Lymph # (Auto) 1.62 (1.20-3.40) K/uL [place] # (Auto) 0.62 H (0.11-0.59) K/uL Eos # (Auto) 0.10 (0.00-0.50) K/uL Baso # (Auto) 0.04 (0.00-0.20) K/uL Immature Gran # (Auto) 0.01 (0.01-0.20) K/uL Sodium 136 (136-145) mmol/L Potassium 3.5 (3.5-5.1) mmol/L Chloride 101 (98-107) mmol/L Carbon Dioxide 27 (21-32) mmol/L Anion Gap 8 (3-11) BUN 16 (6-23) mg/dl Creatinine 0.54 L (0.6-1.2) mg/dl Est Cr Clr Drug Dosing Not Reportable eGFR 100.85 BUN/Creatinine Ratio 29.6 H (10-20) Glucose 108 H (70-99(Fasting)) mg/dl Calcium 9.5 (8.6-10.3) mg/dl Magnesium 2.1 (1.7-2.4) mg/dl Total Bilirubin 0.5 (0.2-1.0) mg/dl AST 16 (13-39) U/L ALT 10 (7-52) U/L Alkaline Phosphatase 60 (34-104) U/L Troponin I High Sens 5.8 (0-14) pg/ml Total Protein 7.3 (6.0-8.3) gm/dl Albumin 4.1 (3.4-5.0) gm/dl Globulin 3.2 (2.5-4.0) gm/dl Albumin/Globulin Ratio 1.3 (0.9-2) TSH 6.800 H (0.300-4.500) uIu/ml Free T4 1.05 (0.61-1.60) ng/dl Urine Color Yellow Urine Appearance Clear (Clear) Urine pH 6.5 (4.5-7.5) Ur Specific [place] 1.017 (1.000-1.030) Urine Protein Negative (Negative) Urine Glucose (UA) Negative (Negative) Urine Ketones Negative (Negative) Urine Blood Negative (Negative) Urine Nitrite Negative (Negative) Urine Bilirubin Negative (Negative) Urine Urobilinogen Negative (Negative) Ur Leukocyte Esterase 1+ H (Negative) Urine WBC (Auto) 0-5 (0-5) /hpf Urine RBC (Auto) 3-5 H (0-2) /hpf U Hyaline Cast (Auto) 0-2 (0-2) /lpf U Epithel Cells (Auto) 6-10 H (0-2) /hpf Urine Bacteria (Auto) None Seen (None Seen) Urine Comment SARS-CoV-2, RNA, NAAT NEGATIVE (NEGATIVE) Administered Medications Discontinued Medications Carbidopa/Levodopa (Carbidopa/Levodopa 25/100mg Tab) 1 tab PO ONCE ONE Stop: 10/06/25 20:20 Last Admin: 10/06/25 21:36 Dose: 1 tab Documented By: bennett Entacapone (Entacapone 200 Mg Tab) 200 mg PO ONCE ONE Stop: 10/06/25 20:21 Last Admin: 10/06/25 21:36 Dose: 200 mg Documented By: bennett Sodium Chloride (Nss) 500 mls @ 999 mls/hr IV .Q31M MEGAN Stop: 10/06/25 21:00 Last Infusion: 10/06/25 22:22 Dose: Infused Documented By: bennett Admin: 10/06/25 21:20 Dose: 999 mls/hr Documented By: bennett Ceftriaxone Sodium (Rocephin) 1,000 mg in 50 mls @ 100 mls/hr IV NOW STA Stop: 10/06/25 20:46 Last Infusion: 10/06/25 22:22 Dose: Infused Documented By: bennett Admin: 10/06/25 21:36 Dose: 100 mls/hr Documented By: bennett Ioversol (Optiray 320 100ml) 90 ml IV ONCE ONE Stop: 10/06/25 20:57 Last Admin: 10/06/25 20:56 Dose: 90 ml Documented By: ROSY Imaging Data Radiologist's Impression: Chest X-Ray 10/06/25 20:17 Exam(s): XR CXR 1 VIEW EXAM: XR Chest, 1 View CLINICAL HISTORY: Reason for exam: weakness. TECHNIQUE: Frontal view of the chest. COMPARISON: No relevant prior studies available. FINDINGS: Lungs: Mild to moderate peribronchial thickening of the central lower lobe bronchi. No consolidation. Pleural space: Unremarkable. No pneumothorax. Heart: Mild cardiomegaly. Mediastinum: Unremarkable. Normal mediastinal contour. Bones/joints: Unremarkable. No acute fracture. IMPRESSION: Bronchitis, which may be of infectious or inflammatory bulges. No consolidation or pleural effusion. Electronically signed by: Rosie Malone MD 10/06/25 23:39 PM Discharge Plan Visit Data Chief Complaint: Urinary Symptoms Stated Complaint: UTI ED Provider: Timbo Kent Discharge Problem: Acute UTI (urinary tract infection), Parkinson's disease, Generalized weakness Patient Disposition: Being Evaluated by Hospitalist Condition: Fair Forms Stand Alone Forms: My [facility] Prescriptions Prescriptions: No Action losartan 50 mg tablet 50 mg PO QAM latanoprost 0.005 % drops 1 drp OPB HS citalopram 40 mg tablet 40 mg PO QAM pravastatin 40 mg tablet 40 mg PO QAM levothyroxine 25 mcg tablet 25 mcg PO DAILYBB metformin 1,000 mg tablet 1,000 mg PO QAM buspirone 10 mg tablet 10 mg PO BID [id number] 25-100-200 mg tablet 1 tab PO TID Rx Instructions: 8am,2pm,8pm polyethylene glycol 3350 [Miralax] 17 gram Powder In Packet 17 g PO DAILY PRN (Reason: Constipation) cyanocobalamin (vitamin B-12) 250 mcg Tablet 250 mcg PO Q2D Qty: 0 0RF cephalexin 500 mg capsule 500 mg PO TID 10 Days Qty: 30 0RF estradiol 0.01 % (0.1 mg/gram) cream 1 applic VAGINAL QAM Referrals Referrals: Edilson Ann M.D. [Primary Care Provider] -
[2025-10-06] MEDS: OPTIRAY 320 100ml IV ONE (20:56)
[2025-10-06 21:06] LABS: Appearance Urine Clear (Clear); Bacteria Urine Automated None Seen (None Seen); Cast Urine Automated 0-2 /lpf (0-2); Glucose Urine UA Negative (Negative); WBC Urine Automated 0-5 /hpf (0-5)
[2025-10-06] MEDS: SODIUM CHLORIDE 0.9% 500 ML IV SCH (21:20)
[2025-10-06 21:21] LABS: Alanine Aminotransferase 10 U/L (7-52); Albumin Globulin Ratio 1.3 (0.9-2); Albumin Level 4.1 gm/dl (3.4-5.0); Alkaline Phosphatase 60 U/L (34-104); Anion Gap 8 (3-11); Bilirubin,Total 0.5 mg/dl (0.2-1.0); Blood Urea Nitrogen 16 mg/dl (6-23); Calcium 9.5 mg/dl (8.6-10.3); Carbon Dioxide 27 mmol/L (21-32); Chloride 101 mmol/L (98-107); Globulin 3.2 gm/dl (2.5-4.0); Glucose 108 mg/dl (70-99(Fasting)); Magnesium 2.1 mg/dl (1.7-2.4); Potassium 3.5 mmol/L (3.5-5.1); Sodium 136 mmol/L (136-145); Total Protein 7.3 gm/dl (6.0-8.3)
[2025-10-06 21:25] LABS: Hematocrit (blood only) 36.6 % (37.0-47.0); Hemoglobin 12.6 g/dL (12.0-16.0); Immature Granulocytes # (auto) 0.01 K/uL (0.01-0.20); Immature Granulocytes % (auto) 0.1 %; Mean Corpuscular Hemoglobin 30.9 pg (25.0-34.0); Mean Corpuscular Volume 89.7 fL (80.0-100.0); Platelet Count 318 K/uL (130-400); RDW Standard Deviation 44.6 fL (36.4-46.3); Red Blood Count 4.08 M/uL (4.20-5.40); White Blood Count 7.31 K/ul (4.8-10.8)
[2025-10-06 21:36] LABS: Thyroid Stimulating Hormone 6.800 uIu/ml (0.300-4.500)
[2025-10-06] MEDS: CARBIDOPA/LEVODOPA 25/100MG TAB PO ONE (21:36)
[2025-10-06] MEDS: cefTRIAXone SODIUM 1,000 MG/50 ML BAG IV STA (21:36)
[2025-10-06] MEDS: ENTACAPONE 200 MG TAB PO ONE (21:36)
[2025-10-06 22:12] LABS: T4 Free Thyroxine 1.05 ng/dl (0.61-1.60)
--- NOTE | 2025-10-06 22:30 | History & Physical Report ---
Date of Service October 06, 2025 Assessment & Plan (1) Generalized weakness: Plan: Assessment and plan below following discussion of case with ED provider and reviewing patient history/pertinent normal/abnormal diagnostic test results. Generalized weakness History of Parkinson's disease Recurrent complicated UTIs, history of neurogenic bladder, no sepsis for now Failed outpatient treatment Transient blurred vision bilaterally with abnormal CT head findings Right posterior mediastinal mass, incidental finding on CT abdomen pelvis hypertension, stable hyperlipidemia, on statin Rx DM 2 on oral medications, well-controlled as of recent hemoglobin A1c of 6 September 2025 hypothyroidism, TSH noted to be elevated at 6.5, normal free T4 right breast cancer status post surgery/chemoradiation, in remission Admit to med/tele Urine CS, Azactam for now MRI/MRA brain re: abnormal CT head Dedicated CT chest with contrast in a.m. re: mediastinal mass ISS BG goal 110-140, carb count coverage Recheck outpatient TSH next month. PT OT eval DVT prophylaxis. Lovenox subcu Full code Patient son requesting updates providers. Mr. Donte Julien, contact #[phone]. Text document was generated using [employer] voice recognition software. It may contain grammatical or spelling errors. Kindly contact undersigned for clarification of any documentation item in question. History of Present Illness Chief Complaint: Worsening weakness, transient blurred vision Primary Care Provider: Edilson Ann History obtained from patient, family, and records. Medical history significant for hypertension, hyperlipidemia, aortic atherosclerosis as per records, Parkinson's disease, neurogenic bladder as per records, DM 2 on oral medications, hypothyroidism, right breast cancer status post surgery/chemoradiation, bilateral knee osteoarthritis, glaucoma, mood disorder. Recent confinement September 18 to 2024 for generalized weakness attributed to UTI. Patient received a few doses of ceftriaxone. No growth on urine CS. Insurance denied rehab placement as per discharge note. Patient still weak upon return home. Patient's son unhappy with home health services. Increasing weakness with dysuria symptoms over the last few days. No fever, no chills. No chest pain, no SOB. Patient consulted [facility] ER last night. Patient discharged home on Keflex course. Worsening generalized weakness at home as per son despite antibiotic Rx. Transient blurred vision without headache symptoms. Denies chest pain, cough, SOB. Patient return to ER for evaluation. IV ceftriaxone administered at the ER. 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 Allergies Allergy/AdvReac Type Severity Reaction Status Date / Time lisinopril Allergy Swelling Verified 09/18/25 22:02 of Lip/Tongue/Throat Home Medications Medication Instructions Recorded Confirmed Type buspirone 10 mg tablet 10 mg PO BID 09/18/25 10/06/25 History carbidopa 25 mg-levodopa 100 1 tab PO TID 09/18/25 10/06/25 History mg-entacapone 200 mg tablet citalopram 40 mg tablet 40 mg PO QAM 09/18/25 10/06/25 History latanoprost 0.005 % eye drops 1 drp OPB HS 09/18/25 10/06/25 History levothyroxine 25 mcg tablet 25 mcg PO DAILYBB 09/18/25 10/06/25 History losartan 50 mg tablet 50 mg PO QAM 09/18/25 10/06/25 History metformin 1,000 mg tablet 1,000 mg PO QAM 09/18/25 10/06/25 History polyethylene glycol 3350 17 gram 17 g PO DAILY PRN Constipation 09/18/25 10/06/25 History oral powder packet (Miralax) pravastatin 40 mg tablet 40 mg PO QAM 09/18/25 10/06/25 History cyanocobalamin (vitamin B-12) 250 250 mcg PO Q2D #0 tabs 09/22/25 10/06/25 Rx mcg tablet cephalexin 500 mg capsule 500 mg PO TID 10 days #30 caps 10/06/25 10/06/25 Rx estradiol 0.01% (0.1 mg/gram) 1 applic vaginal QAM 10/06/25 10/06/25 History vaginal cream Past Med/Surg History Problem List (Updated 10/07/25 @ 03:54 by Bj Morales MD) Generalized weakness Acute UTI (Acute) Lower urinary tract symptoms (LUTS) (Acute) Parkinson disease (Acute) Acute UTI (urinary tract infection) (Acute) Parkinson's disease (Acute) Adverse drug effect (Acute) Tremors of nervous system (Acute) Generalized weakness (Acute) Social History Smoking Status: Never smoker Second Hand Exposure: No; Do You Dip or Chew Tobacco: No; Hx Alcohol Use: No Hx Substance Use: No Preferred Language: Citizen Of [place] Communication Ability: Effective Coach Mechanic Required: No Beliefs That Will Affect Care: None Current Living Situation: Family Current Living Situation Comment: lives with son and grand daughter Other Information That Helps Us Care for You: No Feels Safe at Home: Yes Safety Concerns: Feels Safe At This Time Assistive Devices: Cane Review of Systems Review of Systems: As per HPI, all other systems reviewed and negative Physical Exam Physical Exam: GENERAL: Comfortable, no respiratory distress SKIN: Normal color, warm HEENT: Mask-like facies, pink palpebral conjunctivae, no ptosis, dry buccal mucosa NECK : Supple, no tenderness CHEST : CTA, no tenderness HEART : RRR, no obvious murmurs ABDOMEN: Some distention, nontender EXTREMITIES : No LE swelling/tenderness, palpable pulses, no other conspicuous deformities noted NEUROLOGIC : Coherent, no facial asymmetry, intention tremors, MMTS BUE 4/5, BLE 3/5, gait and stance not assessed Results & Data Results & Data Vital Signs (Past 12 Hours) Vital Signs Temp Pulse Pulse Resp BP BP Pulse Ox 10/06/25 22:21 78 20 98 10/06/25 22:16 144/80 H 10/06/25 22:16 144/80 H 10/06/25 22:16 144/80 H 10/06/25 22:16 144/80 H 10/06/25 22:16 144/80 H 10/06/25 22:15 79 23 95 10/06/25 22:15 187/84 H 10/06/25 22:15 187/84 H 10/06/25 22:12 81 22 90 10/06/25 22:01 187/75 H 10/06/25 22:01 187/75 H 10/06/25 22:01 187/75 H 10/06/25 22:01 187/75 H 10/06/25 22:01 187/75 H 10/06/25 22:00 128 H 21 95 10/06/25 21:51 85 20 97 10/06/25 21:46 197/78 H 10/06/25 21:46 197/78 H 10/06/25 21:46 197/78 H 10/06/25 21:46 197/78 H 10/06/25 21:46 197/78 H 10/06/25 21:45 81 20 10/06/25 21:42 120 H 16 10/06/25 21:30 154/75 H 10/06/25 21:30 154/75 H 10/06/25 21:30 154/75 H 10/06/25 21:30 154/75 H 10/06/25 21:30 154/75 H 10/06/25 21:30 76 21 96 10/06/25 21:21 85 20 96 10/06/25 21:15 96 10/06/25 21:04 166/88 H 10/06/25 21:04 166/88 H 10/06/25 21:04 166/88 H 10/06/25 21:04 166/88 H 10/06/25 21:04 166/88 H 10/06/25 20:33 81 21 94 10/06/25 20:30 79 20 94 10/06/25 20:30 158/83 H 10/06/25 20:30 158/83 H 10/06/25 20:30 158/83 H 10/06/25 20:30 158/83 H 10/06/25 20:30 158/83 H 10/06/25 20:24 116 H 21 94 10/06/25 20:22 154/91 H 10/06/25 20:22 154/91 H 10/06/25 20:22 154/91 H 10/06/25 20:22 154/91 H 10/06/25 20:17 87 H 98 10/06/25 19:29 36.8 C 89 18 150/87 H 96 10/06/25 19:20 86 18 158/83 H 98 O2 Del Method 10/06/25 22:21 10/06/25 22:16 10/06/25 22:16 10/06/25 22:16 10/06/25 22:16 10/06/25 22:16 10/06/25 22:15 10/06/25 22:15 10/06/25 22:15 10/06/25 22:12 10/06/25 22:01 10/06/25 22:01 10/06/25 22:01 10/06/25 22:01 10/06/25 22:01 10/06/25 22:00 10/06/25 21:51 10/06/25 21:46 10/06/25 21:46 10/06/25 21:46 10/06/25 21:46 10/06/25 21:46 10/06/25 21:45 10/06/25 21:42 10/06/25 21:30 10/06/25 21:30 10/06/25 21:30 10/06/25 21:30 10/06/25 21:30 10/06/25 21:30 10/06/25 21:21 10/06/25 21:15 10/06/25 21:04 10/06/25 21:04 10/06/25 21:04 10/06/25 21:04 10/06/25 21:04 10/06/25 20:33 10/06/25 20:30 10/06/25 20:30 10/06/25 20:30 10/06/25 20:30 10/06/25 20:30 10/06/25 20:30 10/06/25 20:24 10/06/25 20:22 10/06/25 20:22 10/06/25 20:22 10/06/25 20:22 10/06/25 20:17 Room Air 10/06/25 19:29 Room Air 10/06/25 19:20 Room Air Laboratory Results Laboratory Results WBC 7.31 K/ul (4.8-10.8) 10/06/25 20:11 RBC 4.08 M/uL (4.20-5.40) L 10/06/25 20:11 Hgb 12.6 g/dL (12.0-16.0) 10/06/25 20:11 Hct 36.6 % (37.0-47.0) L 10/06/25 20:11 MCV 89.7 fL (80.0-100.0) 10/06/25 20:11 MCH 30.9 pg (25.0-34.0) 10/06/25 20:11 MCHC 34.4 g/dL (32.0-36.0) 10/06/25 20:11 RDW Std Deviation 44.6 fL (36.4-46.3) 10/06/25 20:11 RDW Coeff of [place] 13.7 % (11.5-14.5) 10/06/25 20:11 Plt Count 318 K/uL (130-400) 10/06/25 20:11 MPV 9.9 fL (9.4-12.4) 10/06/25 20:11 Immature Gran % (Auto) 0.1 % 10/06/25 20:11 Neut % (Auto) 67.3 % 10/06/25 20:11 Lymph % (Auto) 22.2 % 10/06/25 20:11 [place] % (Auto) 8.5 % 10/06/25 20:11 Eos % (Auto) 1.4 % 10/06/25 20:11 Baso % (Auto) 0.5 % 10/06/25 20:11 Neut # (Auto) 4.92 K/uL (1.40-6.50) 10/06/25 20:11 Lymph # (Auto) 1.62 K/uL (1.20-3.40) 10/06/25 20:11 [place] # (Auto) 0.62 K/uL (0.11-0.59) H 10/06/25 20:11 Eos # (Auto) 0.10 K/uL (0.00-0.50) 10/06/25 20:11 Baso # (Auto) 0.04 K/uL (0.00-0.20) 10/06/25 20:11 Immature Gran # (Auto) 0.01 K/uL (0.01-0.20) 10/06/25 20:11 Sodium 136 mmol/L (136-145) 10/06/25 20:11 Potassium 3.5 mmol/L (3.5-5.1) 10/06/25 20:11 Chloride 101 mmol/L (98-107) 10/06/25 20:11 Carbon Dioxide 27 mmol/L (21-32) 10/06/25 20:11 Anion Gap 8 (3-11) 10/06/25 20:11 BUN 16 mg/dl (6-23) 10/06/25 20:11 Creatinine 0.54 mg/dl (0.6-1.2) L 10/06/25 20:11 Est Cr Clr Drug Dosing Not Reportable 10/06/25 20:11 eGFR 100.85 10/06/25 20:11 BUN/Creatinine Ratio 29.6 (10-20) H 10/06/25 20:11 Glucose 108 mg/dl (70-99(Fasting)) H 10/06/25 20:11 Calcium 9.5 mg/dl (8.6-10.3) 10/06/25 20:11 Magnesium 2.1 mg/dl (1.7-2.4) 10/06/25 20:11 Total Bilirubin 0.5 mg/dl (0.2-1.0) 10/06/25 20:11 AST 16 U/L (13-39) 10/06/25 20:11 ALT 10 U/L (7-52) 10/06/25 20:11 Alkaline Phosphatase 60 U/L (34-104) 10/06/25 20:11 Troponin I High Sens 5.8 pg/ml (0-14) 10/06/25 20:11 Total Protein 7.3 gm/dl (6.0-8.3) 10/06/25 20:11 Albumin 4.1 gm/dl (3.4-5.0) 10/06/25 20:11 Globulin 3.2 gm/dl (2.5-4.0) 10/06/25 20:11 Albumin/Globulin Ratio 1.3 (0.9-2) 10/06/25 20:11 TSH 6.800 uIu/ml (0.300-4.500) H 10/06/25 20:11 Free T4 1.05 ng/dl (0.61-1.60) 10/06/25 20:11 Urine Color Yellow 10/06/25 20: Urine Appearance Clear (Clear) 10/06/25 20: Urine pH 6.5 (4.5-7.5) 10/06/25 20:00 Ur Specific [place] 1.017 (1.000-1.030) 10/06/25 20:00 Urine Protein Negative (Negative) 10/06/25 20:00 Urine Glucose (UA) Negative (Negative) 10/06/25 20: Urine Ketones Negative (Negative) 10/06/25 20: Urine Blood Negative (Negative) 10/06/25 20:00 Urine Nitrite Negative (Negative) 10/06/25 20: Urine Bilirubin Negative (Negative) 10/06/25 20: Urine Urobilinogen Negative (Negative) 10/06/25 20:00 Ur Leukocyte Esterase 1+ (Negative) H 10/06/25 20:00 Urine WBC (Auto) 0-5 /hpf (0-5) 10/06/25 20:00 Urine RBC (Auto) 3-5 /hpf (0-2) H 10/06/25 20:00 U Hyaline Cast (Auto) 0-2 /lpf (0-2) 10/06/25 20:00 U Epithel Cells (Auto) 6-10 /hpf (0-2) H 10/06/25 20:00 Urine Bacteria (Auto) None Seen (None Seen) 10/06/25 20:00 Urine Comment 10/06/25 20:00 Chest x-ray: Bronchitis, which may be of infectious or inflammatory bulges. No consolidation or pleural effusion. CT head: 1. No evidence of hemorrhage or established territorial ischemic infarction. 2. A small hypodense area is seen at the anterior limb of the right internal capsule, with no significant surrounding nuha-lesional edema or mass effect, likely due to prior vascular event. CT abdomen pelvis: 1. Mild bladder wall thickening of moderately distended bladder. Correlates with cystitis. 2. Nonobstructing left renal calculi, largest 5 mm. 3. 5 mm calcification in or adjacent to the right mid ureter. Series 6, image 164. Favor it is vascular. No hydronephrosis. 4. 2 x 1 cm low-density lesion in the right posteromedial lung/mediastinum, partially visualized on the uppermost images. Possible bronchogenic cyst versus other lesion. Limited partial visualization. Correlate with priors if available or consider follow-up chest CT. 5. Degenerative changes of the lower lumbosacral spine. Likely focal severe spinal canal stenoses at L3-L4 and L4-L5. Diagnostic Findings EKG as per my interpretation :Rate 80, NSR, normal axis, no ischemia
--- NOTE | 2025-10-06 23:39 | XRay Report ---
Exam(s): XR CXR 1 VIEW EXAM: XR Chest, 1 View CLINICAL HISTORY: Reason for exam: weakness. TECHNIQUE: Frontal view of the chest. COMPARISON: No relevant prior studies available. FINDINGS: Lungs: Mild to moderate peribronchial thickening of the central lower lobe bronchi. No consolidation. Pleural space: Unremarkable. No pneumothorax. Heart: Mild cardiomegaly. Mediastinum: Unremarkable. Normal mediastinal contour. Bones/joints: Unremarkable. No acute fracture. IMPRESSION: Bronchitis, which may be of infectious or inflammatory bulges. No consolidation or pleural effusion. Electronically signed by: Rosie Malone MD 10/06/25 23:39 PM
[2025-10-06] MEDS ORDERED: POLYETHYLENE (MIRALAX) 17 GM PACK PO PRN (23:51)
[2025-10-06] MEDS ORDERED: PROMETHAZINE 6.25 MG/50.25 ML BAG IV PRN (23:52)
[2025-10-06] MEDS ORDERED: ACETAMINOPHEN 325 MG TAB PO PRN (23:52)
[2025-10-07 01:10] LABS: Influenza A virus by PCR Negative (Neg); Influenza B virus by PCR Negative (Neg); SARS CoV2 RNA(COVID-19) Ceph NEGATIVE (Negative)
--- NOTE | 2025-10-07 01:12 | CT Scan Report ---
Exam(s): CT ABDOMEN + PELVIS With Contrast IV Amt: 90 ml optiray 320 EXAM: CT Abdomen and Pelvis With Intravenous Contrast CLINICAL HISTORY: Reason for exam: weak, utis. TECHNIQUE: Axial computed tomography images of the abdomen and pelvis with intravenous contrast. CTDI is 15.6 mGy and DLP is 667.71 mGy-cm. Automated exposure control was utilized for the study. A dose lowering technique was utilized adhering to the principles of ALARA. CONTRAST: Patient received 90 ml optiray 320 of IV contrast COMPARISON: No relevant prior studies available. FINDINGS: Lung bases: Unremarkable. No mass. No consolidation. Mediastinum: 2 x 1 cm low-density lesion in the right posteromedial lung/mediastinum, partially visualized on the uppermost images. ABDOMEN: Liver: Unremarkable. No mass. Gallbladder and bile ducts: Unremarkable. No calcified stones. No ductal dilation. Pancreas: Unremarkable. No mass. No ductal dilation. Spleen: Unremarkable. No splenomegaly. Adrenals: Unremarkable. No mass. Kidneys and ureters: Nonobstructing left renal calculi, largest 5 mm. 5 mm calcification in or adjacent to the right mid ureter. Series 6, image 164. Favor it is vascular. Low-attenuation foci right kidney which may be due to cysts but are too small to characterize. No follow- up is necessary. 4.5 cm left renal cyst. Stomach and bowel: Unremarkable. No obstruction. No mucosal thickening. PELVIS: Appendix: No findings to suggest acute appendicitis. Bladder: Mild bladder wall thickening of moderately distended bladder. Reproductive: Unremarkable as visualized. ABDOMEN and PELVIS: Intraperitoneal space: Unremarkable. No free air. No significant fluid collection. Bones/joints: Degenerative changes of the lower lumbosacral spine. Likely focal severe spinal canal stenoses at L3-L4 and L4-L5. No acute fracture. No dislocation. Soft tissues: Unremarkable. Vasculature: Moderate atherosclerotic calcifications. Lymph nodes: Unremarkable. No enlarged lymph nodes. IMPRESSION: 1. Mild bladder wall thickening of moderately distended bladder. Correlates with cystitis. 2. Nonobstructing left renal calculi, largest 5 mm. 3. 5 mm calcification in or adjacent to the right mid ureter. Series 6, image 164. Favor it is vascular. No hydronephrosis. 4. 2 x 1 cm low-density lesion in the right posteromedial lung/mediastinum, partially visualized on the uppermost images. Possible bronchogenic cyst versus other lesion. Limited partial visualization. Correlate with priors if available or consider follow-up chest CT. 5. Degenerative changes of the lower lumbosacral spine. Likely focal severe spinal canal stenoses at L3-L4 and L4-L5. Electronically signed by: Nadya Cuello M.D. 10/07/25 01:11 AM
[2025-10-07] MEDS ORDERED: GLUCAGON FOR INJ 1 MG VIAL SQ PRN (01:52)
[2025-10-07] MEDS ORDERED: GLUCOSE 40% GEL 15 GM TUBE PO PRN (01:52)
[2025-10-07] MEDS ORDERED: GLUCOSE 10 TAB/TUBE PO PRN (01:52)
[2025-10-07] MEDS ORDERED: CARBOHYDRATES FOR HYPOGLYCEMIA PO PRN (01:52)
[2025-10-07] MEDS ORDERED: DEXTROSE 50% 50 ML SYRINGE IV PRN (01:52)
[2025-10-07] MEDS: AZTREONAM 2,000 MG in DEXTROSE 5% MINI-B 100 ML IV STA (02:22)
--- NOTE | 2025-10-07 02:27 | CT Scan Report ---
EXAM: CT head/brain wo con CLINICAL HISTORY: Transient blurred vision. TECHNIQUE: Axial non-contrast CT scan of the brain was performed from the skull base to the high parietal region in axial, sagittal, and coronal reconstructions. One of the following dose reduction techniques were utilized for this exam: Automated exposure control, adjustment of the mA and/or kV according to patient size, and use of iterative reconstruction. COMPARISON: No prior study for comparison. FINDINGS: Brain Parenchyma: A small hypodense area is seen at the anterior limb of the right internal capsule, with no significant surrounding nuha-lesional edema or mass effect. Normal attenuation of the left cerebral hemisphere, cerebellum, and brainstem. No evidence of acute infarct, hemorrhage, or mass effect. No abnormal areas of hyperattenuation. Ventricular System: Ventricles are normal in size and configuration. No evidence of hydrocephalus or ventricular enlargement. Subarachnoid Spaces: Normal sulci and cisterns. No evidence of subarachnoid hemorrhage or extra-axial fluid collections. Cerebellum and Brainstem: No masses, lesions, or areas of abnormal density. Orbits: Normal appearance of the globes, optic nerves, and extraocular muscles. No evidence of orbital masses or abnormal density. Sinuses: Clear paranasal sinuses. No evidence of sinusitis or mucosal thickening. Mastoid Air Cells: Clear mastoid air cells. No evidence of mastoiditis. Skull: Normal skull morphology. IMPRESSION: 1. No evidence of hemorrhage or established territorial ischemic infarction. 2. A small hypodense area is seen at the anterior limb of the right internal capsule, with no significant surrounding nuha-lesional edema or mass effect, likely due to prior vascular event. 3. Early changes of acute ischemic infarction may not be detected on CT scan, MRI DWI is the imaging modality of choice. Electronically signed by Spencer Moran 10-07-2025 02:26 AM
[2025-10-07] MEDS: INSULIN ASPART PER UNIT CHARGE SC SCH (03:00)
[2025-10-07] MEDS: LEVOTHYROXINE SODIUM 25 MCG TABLET PO SCH (05:50)
[2025-10-07] MEDS: NSS + 20MEQ KCL 20 MEQ/1,000 ML BAG IV ONE (06:07)
[2025-10-07 07:12] LABS: Hematocrit (blood only) 35.6 % (37.0-47.0); Hemoglobin 12.1 g/dL (12.0-16.0); Immature Granulocytes # (auto) 0.01 K/uL (0.01-0.20); Immature Granulocytes % (auto) 0.1 %; Mean Corpuscular Hemoglobin 30.6 pg (25.0-34.0); Mean Corpuscular Volume 90.1 fL (80.0-100.0); Platelet Count 305 K/uL (130-400); RDW Standard Deviation 45.1 fL (36.4-46.3); Red Blood Count 3.95 M/uL (4.20-5.40); White Blood Count 6.91 K/ul (4.8-10.8)
[2025-10-07 08:08] LABS: Anion Gap 6.0 (3-11); Blood Urea Nitrogen 13.0 mg/dl (6-23); Calcium 9.3 mg/dl (8.6-10.3); Carbon Dioxide 30.0 mmol/L (21-32); Chloride 102.0 mmol/L (98-107); Creatinine Clr Calc Pharmacy 87.2 ml/min; Glucose 113.0 mg/dl (70-99(Fasting)); Potassium 3.6 mmol/L (3.5-5.1); Sodium 138.0 mmol/L (136-145)
[2025-10-07] MEDS: OPTIRAY 320 100ml IV ONE (09:25)
[2025-10-07] MEDS: busPIRone 5 MG TAB PO SCH ×2 (10:18→15:23)
[2025-10-07] MEDS: CARBIDOPA/LEVODOPA 25/100MG TAB PO SCH (10:19)
[2025-10-07] MEDS: PRAVASTATIN SOD 40 MG TAB PO SCH (10:19)
[2025-10-07] MEDS: ENTACAPONE 200 MG TAB PO SCH (10:19)
[2025-10-07] MEDS: LOSARTAN POTASSIUM 50 MG TAB PO SCH (10:20)
[2025-10-07] MEDS: CITALOPRAM 40 MG TAB PO SCH (10:20)
[2025-10-07] MEDS: ENOXAPARIN INJ 40 MG/0.4 ML SYR SQ SCH (10:20)
--- NOTE | 2025-10-07 11:12 | Hospitalist Progress Note ---
<Statement entered by Cecil Dillon, DO - 10/07/25 15:17> I have seen and examined the patient and have discussed the case with the advance practice provider. I have reviewed the advanced practitioner's documentation, and I agree with, and take responsibility for that plan of care. Patient seen at bedside, she was sitting in a chair. Son participated via phone/video phone. Patient quite significant resting tremor. Extensive reviewed patient's condition with both patient and son. Explained to them that concerned that her Parkinson's management could improve and that may help with the rest of her symptoms. Explained we will be starting some thyroid medication for evidence of hypothyroidism which may also help. Reviewed CT of the chest, no mediastinal mass, small pericardial effusion. MRI of the brain and MRA of the brain showed no acute findings/changes Reviewed neurology recommendations for adjustment of Parkinson's meds Monitor urine culture Further plan of care as outlined below I spent a total of 30 minutes coordinating, documenting, and providing care for this patient excluding time spent by another provider/QHP. Date of Service October 07, 2025 Assessment & Plan (1) Generalized weakness: Plan: This is a 65-year-old female with PMH significant for Parkinson's Disease with dyskinesia, MDD, DM II, HTN, hypothyroidism, history of right breast cancer, glaucoma both eyes who presents with urinary symptoms, transient blurred vision and generalized weakness. Recent admission and ER visit for generalized weakness, urinary symptoms but only skin lou grew on 09/18 and 09/26 urine cultures Generalized weakness History of Parkinson's disease Following with Dr. Mad[place], recently had [id number] reduced to 1 tab [id number] TID due to side effects of fatigue and cognitive "fogginess" per patient Significant BUE tremors noted on exam, appears depressed Consulted neuro for recommendations given PD - recommend discontinuing entacapone in case causing increased dyskinesias, keep Sinemet at current dose Mood disorder Suspect depression/ anxiety about health contributing to overall feeling of decline Continue Celexa, increase buspirone to 10mg TID, consider Wellbutrin trial Possible UTI Incomplete bladder emptying Abnormal UA and dysuria In setting of incomplete bladder emptying, neurogenic bladder per recent urology note PCP considering uro vulcanizer referral, trial of Estrace 3x/week for now Continue empiric Rocephin, follow urine culture Transient blurred vision -> resolved Brain MRI and Head MRA without acute findings Right posterior mediastinal mass History of right breast cancer status post surgery/chemoradiation, in remission Mass is incidental finding on CT abdomen pelvis - 1. No mediastinal lesion is identified. The abnormality questioned on the abdominal CT corresponds to a loculation of pericardial fluid. 2. Postsurgical change it is suggested in the right breast with tiny foci of asymmetric nodular enhancement. This is not well assessed by CT. 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 Dillon. Please see addendum. I spent a total of 55 minutes coordinating, documenting, and providing care for this patient excluding time spent in the performance of separately billed services or time spent by another provider/QHP. Admission and Anticipated Discharge Date Admission Date: October 06, 2025 Subjective Seen and examined in 275-2. Long discussion with patient - visual changes improved but feeling generally weak, discouraged about poorer recent health, intermittent dysuria. No F/C, CP, SOB, N/V, abd pain. Worsening tremoring of hands. Lives with son and granddaughter. Needing more help with ADLs and having difficulty with tasks like cooking due to safety concerns with dyskinesias. Review of Systems Review of Systems: At least ten systems reviewed and negative except as noted in the HPI. Physical Exam Physical Exam: Gen: WD/WN, NAD, sitting in bedside chair, A&Ox3, significant BUE dyskinesias, tremors HEENT: Normocephalic, atraumatic, mucous membranes moist Lung: Clear to Auscultation bilaterally Heart: Regular rate, regular rhythm Abdomen: Soft, NT, ND +BS x 4 Extremities: no edema Skin: Warm, no rash Results & Data Results & Data Vital Signs (Past 12 Hours) Vital Signs Temp Pulse Pulse Resp BP Pulse Ox O2 Del Method 10/07/25 08:09 36.9 C 73 20 147/75 H 97 Room Air 10/07/25 03:11 36.5 C 80 18 134/78 93 Room Air 10/07/25 02:07 86 10/07/25 01:52 36.5 C 80 18 134/78 93 Room Air Laboratory Results Short CBC 10/06/25 10/07/25 Range/Units 20:11 06:33 WBC 7.31 6.91 (4.8-10.8) K/ul Hgb 12.6 12.1 (12.0-16.0) g/dL Hct 36.6 L 35.6 L (37.0-47.0) % Plt Count 318 305 (130-400) K/uL BMP 10/06/25 10/07/25 20:11 06:33 Sodium 136 138 Potassium 3.5 3.6 Chloride 101 102 Carbon Dioxide 27 30 BUN 16 13 Creatinine 0.54 L 0.58 L Glucose 108 H 113 H Calcium 9.5 9.3 Liver Function 10/06/25 Range/Units 20:11 Total Bilirubin 0.5 (0.2-1.0) mg/dl AST 16 (13-39) U/L ALT 10 (7-52) U/L Alkaline Phosphatase 60 (34-104) U/L Albumin 4.1 (3.4-5.0) gm/dl Urine 10/06/25 Range/Units 20:00 Urine Color Yellow Urine Appearance Clear (Clear) Urine pH 6.5 (4.5-7.5) Ur Specific [place] 1.017 (1.000-1.030) Urine Protein Negative (Negative) Urine Glucose (UA) Negative (Negative) Diagnostic Findings Abdomen/Pelvis CT 10/06/25 20:17 Exam(s): CT ABDOMEN + PELVIS With Contrast IV Amt: 90 ml optiray 320 EXAM: CT Abdomen and Pelvis With Intravenous Contrast CLINICAL HISTORY: Reason for exam: weak, utis. TECHNIQUE: Axial computed tomography images of the abdomen and pelvis with intravenous contrast. CTDI is 15.6 mGy and DLP is 667.71 mGy-cm. Automated exposure control was utilized for the study. A dose lowering technique was utilized adhering to the principles of ALARA. CONTRAST: Patient received 90 ml optiray 320 of IV contrast COMPARISON: No relevant prior studies available. FINDINGS: Lung bases: Unremarkable. No mass. No consolidation. Mediastinum: 2 x 1 cm low-density lesion in the right posteromedial lung/mediastinum, partially visualized on the uppermost images. ABDOMEN: Liver: Unremarkable. No mass. Gallbladder and bile ducts: Unremarkable. No calcified stones. No ductal dilation. Pancreas: Unremarkable. No mass. No ductal dilation. Spleen: Unremarkable. No splenomegaly. Adrenals: Unremarkable. No mass. Kidneys and ureters: Nonobstructing left renal calculi, largest 5 mm. 5 mm calcification in or adjacent to the right mid ureter. Series 6, image 164. Favor it is vascular. Low-attenuation foci right kidney which may be due to cysts but are too small to characterize. No follow- up is necessary. 4.5 cm left renal cyst. Stomach and bowel: Unremarkable. No obstruction. No mucosal thickening. PELVIS: Appendix: No findings to suggest acute appendicitis. Bladder: Mild bladder wall thickening of moderately distended bladder. Reproductive: Unremarkable as visualized. ABDOMEN and PELVIS: Intraperitoneal space: Unremarkable. No free air. No significant fluid collection. Bones/joints: Degenerative changes of the lower lumbosacral spine. Likely focal severe spinal canal stenoses at L3-L4 and L4-L5. No acute fracture. No dislocation. Soft tissues: Unremarkable. Vasculature: Moderate atherosclerotic calcifications. Lymph nodes: Unremarkable. No enlarged lymph nodes. IMPRESSION: 1. Mild bladder wall thickening of moderately distended bladder. Correlates with cystitis. 2. Nonobstructing left renal calculi, largest 5 mm. 3. 5 mm calcification in or adjacent to the right mid ureter. Series 6, image 164. Favor it is vascular. No hydronephrosis. 4. 2 x 1 cm low-density lesion in the right posteromedial lung/mediastinum, partially visualized on the uppermost images. Possible bronchogenic cyst versus other lesion. Limited partial visualization. Correlate with priors if available or consider follow-up chest CT. 5. Degenerative changes of the lower lumbosacral spine. Likely focal severe spinal canal stenoses at L3-L4 and L4-L5. Electronically signed by: Nadya Cuello M.D. 10/07/25 01:11 AM Chest X-Ray 10/06/25 20:17 Exam(s): XR CXR 1 VIEW EXAM: XR Chest, 1 View CLINICAL HISTORY: Reason for exam: weakness. TECHNIQUE: Frontal view of the chest. COMPARISON: No relevant prior studies available. FINDINGS: Lungs: Mild to moderate peribronchial thickening of the central lower lobe bronchi. No consolidation. Pleural space: Unremarkable. No pneumothorax. Heart: Mild cardiomegaly. Mediastinum: Unremarkable. Normal mediastinal contour. Bones/joints: Unremarkable. No acute fracture. IMPRESSION: Bronchitis, which may be of infectious or inflammatory bulges. No consolidation or pleural effusion. Electronically signed by: Rosie Malone MD 10/06/25 23:[address] 10/06/25 23:17 EXAM: CT head/brain wo con CLINICAL HISTORY: Transient blurred vision. TECHNIQUE: Axial non-contrast CT scan of the brain was performed from the skull base to the high parietal region in axial, sagittal, and coronal reconstructions. One of the following dose reduction techniques were utilized for this exam: Automated exposure control, adjustment of the mA and/or kV according to patient size, and use of iterative reconstruction. COMPARISON: No prior study for comparison. FINDINGS: Brain Parenchyma: A small hypodense area is seen at the anterior limb of the right internal capsule, with no significant surrounding nuha-lesional edema or mass effect. Normal attenuation of the left cerebral hemisphere, cerebellum, and brainstem. No evidence of acute infarct, hemorrhage, or mass effect. No abnormal areas of hyperattenuation. Ventricular System: Ventricles are normal in size and configuration. No evidence of hydrocephalus or ventricular enlargement. Subarachnoid Spaces: Normal sulci and cisterns. No evidence of subarachnoid hemorrhage or extra-axial fluid collections. Cerebellum and Brainstem: No masses, lesions, or areas of abnormal density. Orbits: Normal appearance of the globes, optic nerves, and extraocular muscles. No evidence of orbital masses or abnormal density. Sinuses: Clear paranasal sinuses. No evidence of sinusitis or mucosal thickening. Mastoid Air Cells: Clear mastoid air cells. No evidence of mastoiditis. Skull: Normal skull morphology. IMPRESSION: 1. No evidence of hemorrhage or established territorial ischemic infarction. 2. A small hypodense area is seen at the anterior limb of the right internal capsule, with no significant surrounding nuha-lesional edema or mass effect, likely due to prior vascular event. 3. Early changes of acute ischemic infarction may not be detected on CT scan, MRI DWI is the imaging modality of choice. Electronically signed by Spencer Moran 10-07-2025 02:26 AM Brain MRI 10/07/25 03:16 MRI OF THE BRAIN WITHOUT IV CONTRAST CLINICAL HISTORY: Transient blurry vision COMPARISON STUDY: CT of the brain dated 10/07/2025. TECHNIQUE: MRI of the brain was performed utilizing various T1 and T2-weighted sequences in the axial, sagittal, and coronal planes. IV contrast was not administered for this examination. FINDINGS: Brain parenchyma: There is age-related involutional change noting mild subcortical and periventricular microangiopathic disease. There is no hemorrhage or mass effect. There is no restricted diffusion to suggest acute ischemia. Hester-white matter differentiation is preserved. No extra-axial fluid collection is seen. The cerebellar tonsils are normal in configuration. Ventricles, sulci, and cisterns: Prominent secondary to involutional change. Pituitary and sella: Unremarkable. Intracranial vasculature: Normal flow voids are maintained at the skull base. Orbits: The bony orbits are grossly intact. Orbital contents are normal in appearance noting bilateral ocular lens implants. Sinuses and mastoids: Clear. Calvarium: Unremarkable. Cervical cord: Partially visualized cervical spinal cord is normal in morphology and signal intensity. IMPRESSION: No acute intracranial abnormality. ACT 112: Negative or not required by law. Electronically signed by: Dennys Barraza M.D. 10/07/2025 12:34 PM Head MRA 10/07/25 03:16 MR ANGIOGRAM OF THE BRAIN CLINICAL HISTORY: Transient blurry vision. COMPARISON STUDY: MRI of the brain performed concurrently on 10/07/2025. TECHNIQUE: 3-D [id number] MR angiography of the intracranial circulation is performed. 3-D tumble views are created and assessed. IV contrast was not administered for this examination. FINDINGS: The [place] of [place] is developmentally completed. The internal carotid arteries are widely patent bilaterally, as are the anterior and middle cerebral arteries. The vertebrobasilar system and posterior cerebral arteries are widely patent. The vertebral arteries are codominant. There is no aneurysm, high-grade stenosis, or focal vessel cutoff seen throughout the intracranial circulation. The brain parenchyma is normal as visualized. IMPRESSION: Unremarkable MR angiogram of the brain. ACT 112: Negative or not required by law. Electronically signed by: Dennys Barraza M.D. 10/07/2025 12:[address] 10/07/25 09:00 CT SCAN OF THE CHEST WITH IV CONTRAST CLINICAL HISTORY: Possible mediastinal lesion seen on abdominal CT. COMPARISON STUDY: Chest x-ray dated 10/06/2025. Abdominal CT dated 10/06/2025. TECHNIQUE: Following the IV administration of 94 cc of Optiray 320, CT scan of the thorax was performed from the thoracic inlet to the upper abdomen. Images are reviewed in the axial, sagittal, and coronal planes. IV contrast was administered without complication. A dose lowering technique was utilized adhering to the principles of ALARA. CT DOSE: 583.96 mGy.cm FINDINGS: Thyroid: Imaged portions of the thyroid gland are normal in size and attenuation. Thoracic aorta: There is mild atherosclerotic calcification of the thoracic aorta, which is normal in caliber and demonstrates standard 3-vessel arch anatomy. No dissection is seen. Pulmonary vasculature: The pulmonary trunk is normal in caliber. There are no filling defects identified in the central pulmonary vessels to indicate pulmonary embolus. Note that this examination was not protocoled for evaluation of the pulmonary arteries. Heart: The heart is top normal in size noting a small pericardial effusion. There is coronary artery atherosclerosis. Lungs and pleural spaces: There is no airspace consolidation or pleural effusion. The trachea and central airways are clear. Mediastinum: There is a calcified subcarinal node. No adenopathy is seen. Clara: Clear. Axillae: Surgical clips are noted in the right axilla. There is no axillary lymphadenopathy. Upper abdomen: A 4.6 cm left renal cyst is partially imaged. A subcentimeter splenic hypodensity on image #195 is statistically of doubtful significance. Skeletal structures: The skeletal structures are osteopenic. No lytic or blastic bony lesions are seen. Mild arthritic change is seen in the shoulders. Soft tissues: Postsurgical change is suggested in the right breast. There is a 13 mm focus of asymmetric nodular enhancement involving the right nipple seen on image #168, as well as an additional tiny enhancing nodule in the right breast suggested on image #148. IMPRESSION: 1. No mediastinal lesion is identified. The abnormality questioned on the abdominal CT corresponds to a loculation of pericardial fluid. 2. The lungs are clear. 3. Postsurgical change it is suggested in the right breast with tiny foci of asymmetric nodular enhancement. This is not well assessed by CT. Nonemergent correlation with dedicated breast imaging is recommended. 4. Coronary artery atherosclerosis. 5. Additional findings as above. ACT 112: Negative or not required by law. Electronically signed by: Dennys Barraza M.D. 10/07/2025 12:15 PM
--- NOTE | 2025-10-07 12:18 | CT Scan Report ---
CT SCAN OF THE CHEST WITH IV CONTRAST CLINICAL HISTORY: Possible mediastinal lesion seen on abdominal CT. COMPARISON STUDY: Chest x-ray dated 10/06/2025. Abdominal CT dated 10/06/2025. TECHNIQUE: Following the IV administration of 94 cc of Optiray 320, CT scan of the thorax was perform ed from the thoracic inlet to the upper abdomen. Images are reviewed in the axial, sagittal, and lucas nal planes. IV contrast was administered without complication. A dose lowering technique was utilize d adhering to the principles of ALARA. CT DOSE: 583.96 mGy.cm FINDINGS: Thyroid: Imaged portions of the thyroid gland are normal in size and attenuation. Thoracic aorta: There is mild atherosclerotic calcification of the thoracic aorta, which is normal in caliber and demonstrates standard 3-vessel arch anatomy. No dissection is seen. Pulmonary vasculature: The pulmonary trunk is normal in caliber. There are no filling defects identif ied in the central pulmonary vessels to indicate pulmonary embolus. Note that this examination was no t protocoled for evaluation of the pulmonary arteries. Heart: The heart is top normal in size noting a small pericardial effusion. There is coronary artery atherosclerosis. Lungs and pleural spaces: There is no airspace consolidation or pleural effusion. The trachea and khalida tral airways are clear. Mediastinum: There is a calcified subcarinal node. No adenopathy is seen. Clara: Clear. Axillae: Surgical clips are noted in the right axilla. There is no axillary lymphadenopathy. Upper abdomen: A 4.6 cm left renal cyst is partially imaged. A subcentimeter splenic hypodensity on i mage #195 is statistically of doubtful significance. Skeletal structures: The skeletal structures are osteopenic. No lytic or blastic bony lesions are see n. Mild arthritic change is seen in the shoulders. Soft tissues: Postsurgical change is suggested in the right breast. There is a 13 mm focus of asymmet nancy nodular enhancement involving the right nipple seen on image #168, as well as an additional tiny enhancing nodule in the right breast suggested on image #148. IMPRESSION: 1. No mediastinal lesion is identified. The abnormality questioned on the abdominal CT corresponds to a loculation of pericardial fluid. 2. The lungs are clear. 3. Postsurgical change it is suggested in the right breast with tiny foci of asymmetric nodular enhan cement. This is not well assessed by CT. Nonemergent correlation with dedicated breast imaging is rec ommended. 4. Coronary artery atherosclerosis. 5. Additional findings as above. ACT 112: Negative or not required by law. Electronically signed by: Dennys Barraza M.D. 10/07/2025 12:15 PM
--- NOTE | 2025-10-07 12:29 | Electrocardiogram Report ---
Test Reason : Blood Pressure : */* mmHG Vent. Rate : 81 BPM Atrial Rate : 81 BPM P-R Int : 144 ms QRS Dur : 86 ms QT Int : 386 ms P-R-T Axes : 63 7 26 degrees QTcB Int : 448 ms Normal sinus rhythm Normal ECG When compared with ECG of 18-Sep-2025 16:46, Questionable change in QRS axis Confirmed by Luca Moses ([id number]) on 10/07/2025 12:29:26 PM Referred By: REFERRED SELF Confirmed By: Luca Moses
--- NOTE | 2025-10-07 12:36 | Magnetic Resonance Report ---
MRI OF THE BRAIN WITHOUT IV CONTRAST CLINICAL HISTORY: Transient blurry vision COMPARISON STUDY: CT of the brain dated 10/07/2025. TECHNIQUE: MRI of the brain was performed utilizing various T1 and T2-weighted sequences in the axial , sagittal, and coronal planes. IV contrast was not administered for this examination. FINDINGS: Brain parenchyma: There is age-related involutional change noting mild subcortical and periventricula r microangiopathic disease. There is no hemorrhage or mass effect. There is no restricted diffusion t o suggest acute ischemia. Hester-white matter differentiation is preserved. No extra-axial fluid collec tion is seen. The cerebellar tonsils are normal in configuration. Ventricles, sulci, and cisterns: Prominent secondary to involutional change. Pituitary and sella: Unremarkable. Intracranial vasculature: Normal flow voids are maintained at the skull base. Orbits: The bony orbits are grossly intact. Orbital contents are normal in appearance noting bilatera l ocular lens implants. Sinuses and mastoids: Clear. Calvarium: Unremarkable. Cervical cord: Partially visualized cervical spinal cord is normal in morphology and signal intensity . IMPRESSION: No acute intracranial abnormality. ACT 112: Negative or not required by law. Electronically signed by: Dennys Barraza M.D. 10/07/2025 12:34 PM
--- NOTE | 2025-10-07 12:39 | Magnetic Resonance Report ---
MR ANGIOGRAM OF THE BRAIN CLINICAL HISTORY: Transient blurry vision. COMPARISON STUDY: MRI of the brain performed concurrently on 10/07/2025. TECHNIQUE: 3-D [id number] MR angiography of the intracranial circulation is performed. 3-D tumble views are created and assessed. IV contrast was not administered for this examination. FINDINGS: The [place] of [place] is developmentally completed. The internal carotid arteries are widely patent bilaterally, as are the anterior and middle cerebral arteries. The vertebrobasilar system and posterior cerebral arteries are widely patent. The vertebral arteries are codominant. There is no an eurysm, high-grade stenosis, or focal vessel cutoff seen throughout the intracranial circulation. The brain parenchyma is normal as visualized. IMPRESSION: Unremarkable MR angiogram of the brain. ACT 112: Negative or not required by law. Electronically signed by: Dennys Barraza M.D. 10/07/2025 12:38 PM
--- NOTE | 2025-10-07 13:00 | Neurology Consultation ---
Date of Consultation October 07, 2025 Assessment & Plan (1) Parkinson disease: Generalized weakness in a 65M with a pMH of parkinson's disease, and depression. On exam she does have an intermittent tremor, but the majority of the exam can't be performed on camera. MRI was unremarkable. I do suspect that a component of her weakness is secondary to depression but in these situations i do recommend limiting all non-sinemet meds in an effort to reduce side effects. Plan -- stop entacapone -- continue sinemet as written -- outpatient follow up Telehealth Consultation Telehealth Information Telehealth Information: I performed this visit using a real-time telehealth connection between my location and the patients originating location ([facility]). After connecting through interactive tele-video, patient was identified by name and date of and/or wristband check.Patient (or authorized healthcare insurance representative) was informed that this was a telemedicine visit and it was being conducted confidentially over secure lines. My office door was closed and no one else was present in the room with me.Patient (or authorized healthcare insurance representative) provided consent to proceed with the visit, expressed an understanding of privacy and security of the telemedicine visit, and gave permission to have a hospital insurance representative in the room in order to assist with the visit and to conduct portions of the visit, as needed. I informed the patient (or authorized healthcare insurance representative) that I reviewed their record and presented the opportunity for them to ask any questions regarding the visit today. The patient agreed to participate. History of Present Illness Reason for Consultation: Parkinsons weakness Attending Physician: Cecil Dillon DO History of Present Illness Poly Julien is a 65F with a PMH of Parkinson's disease, depression and generalized weakness who presents with multiple complaints. She reports that since her diagnosis of Parkinson's disease her life hasn't been the same and since there is no cure that she feels herself getting weaker and weaker. She says that she has been in and out of the hospital for weakness and depression several times and has had multiple medication changes during that time. She reports that her legs are swollen and she was having trouble walking. She does endorse feeling depressed and wanting some PT but when they see her she walks to well. She denies headache, fevers, chills, focal weakness, focal numbness, dysarthria, dysphagia or aphasia. She does endorse tremor which get worse when she is anxious but are otherwise well controlled. Allergies Allergy/AdvReac Type Severity Reaction Status Date / Time lisinopril Allergy Swelling Verified 09/18/25 22:02 of Lip/Tongue/Throat Home Medications Medication Instructions Recorded Confirmed Type buspirone 10 mg tablet 10 mg PO BID 09/18/25 10/06/25 History carbidopa 25 mg-levodopa 100 1 tab PO TID 09/18/25 10/06/25 History mg-entacapone 200 mg tablet citalopram 40 mg tablet 40 mg PO QAM 09/18/25 10/06/25 History latanoprost 0.005 % eye drops 1 drp OPB HS 09/18/25 10/06/25 History levothyroxine 25 mcg tablet 25 mcg PO DAILYBB 09/18/25 10/06/25 History losartan 50 mg tablet 50 mg PO QAM 09/18/25 10/06/25 History metformin 1,000 mg tablet 1,000 mg PO QAM 09/18/25 10/06/25 History polyethylene glycol 3350 17 gram 17 g PO DAILY PRN Constipation 09/18/25 10/06/25 History oral powder packet (Miralax) pravastatin 40 mg tablet 40 mg PO QAM 09/18/25 10/06/25 History cyanocobalamin (vitamin B-12) 250 250 mcg PO Q2D #0 tabs 09/22/25 10/06/25 Rx mcg tablet estradiol 0.01% (0.1 mg/gram) 1 applic vaginal QAM 10/06/25 10/06/25 History vaginal cream Patient History Social History Smoking Status: Never smoker Second Hand Exposure: No; Do You Dip or Chew Tobacco: No; Hx Alcohol Use: No Hx Substance Use: No Preferred Language: Polish Communication Ability: Effective 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 Required: No Beliefs That Will Affect Care: None Current Living Situation: Family Current Living Situation Comment: lives with son and grand daughter Other Information That Helps Us Care for You: No Feels Safe at Home: Yes Safety Concerns: Feels Safe At This Time Assistive Devices: Cane Review of Systems see HPI Physical Exam NEUROLOGIC EXAMINATION: Mental Status:alert, oriented to time, place, person, normal recent memory, normal remote memory, normal attention span, normal concentration, normal language, and normal fund of knowledge Cranial Nerves: CN 2 - no visual defect on confrontation and pupils round, equal, reactive to light CN 3, 4, 6 - extra-ocular movements intact and no nystagmus CN 5 - facial sensation intact CN 7 - no facial asymmetry, hypomimia CN 8 - intact hearing CN 9, 10 - palate symmetric, normal gag CN 11 - good shoulder shrug CN 12 - tongue midline MOTOR: Strength was at least antigravity throughout, Pronator drift was absent, and bilateral tremor which was intermittent SENSATION: intact GAIT: deferred COORDINATION: no ataxia with finger to nose testing and heel to lees testing REFLEXES: cannot assess over telemedicine Results & Data Vital Signs (Past 12 Hours) Vital Signs Temp Pulse Pulse Resp BP Pulse Ox O2 Del Method 10/07/25 12:13 36.9 C 99 H 16 162/77 H 94 Room Air 10/07/25 08:09 36.9 C 73 20 147/75 H 97 Room Air 10/07/25 03:11 36.5 C 80 18 134/78 93 Room Air 10/07/25 02:07 86 10/07/25 01:52 36.5 C 80 18 134/78 93 Room Air Laboratory Results Abnormal Lab Results 10/06/25 10/06/25 10/06/25 20:00 20:11 22:28 WBC 7.31 RBC 4.08 L Hgb 12.6 Hct 36.6 L MCV 89.7 MCH 30.9 MCHC 34.4 RDW Std Deviation 44.6 RDW Coeff of Gely 13.7 Plt Count 318 MPV 9.9 Immature Gran % (Auto) 0.1 Neut % (Auto) 67.3 Lymph % (Auto) 22.2 Mckenzie % (Auto) 8.5 Eos % (Auto) 1.4 Baso % (Auto) 0.5 Neut # (Auto) 4.92 Lymph # (Auto) 1.62 Mckenzie # (Auto) 0.62 H Eos # (Auto) 0.10 Baso # (Auto) 0.04 Immature Gran # (Auto) 0.01 Sodium 136 Potassium 3.5 Chloride 101 Carbon Dioxide 27 Anion Gap 8 BUN 16 Creatinine 0.54 L Est Cr Clr Drug Dosing Not Reportable eGFR 100.85 BUN/Creatinine Ratio 29.6 H Glucose 108 H POC Glucose Calcium 9.5 Magnesium 2.1 Total Bilirubin 0.5 AST 16 ALT 10 Alkaline Phosphatase 60 Troponin I High Sens 5.8 Total Protein 7.3 Albumin 4.1 Globulin 3.2 Albumin/Globulin Ratio 1.3 TSH 6.800 H Free T4 1.05 Urine Color Yellow Urine Appearance Clear Urine pH 6.5 Ur Specific [place] 1.017 Urine Protein Negative Urine Glucose (UA) Negative Urine Ketones Negative Urine Blood Negative Urine Nitrite Negative Urine Bilirubin Negative Urine Urobilinogen Negative Ur Leukocyte Esterase 1+ H Urine WBC (Auto) 0-5 Urine RBC (Auto) 3-5 H U Hyaline Cast (Auto) 0-2 U Epithel Cells (Auto) 6-10 H Urine Bacteria (Auto) None Seen Urine Comment SARS-CoV-2 (PCR) Influenza Type A (PCR) Influenza Type B (PCR) RSV (RT-PCR) SARS-CoV-2, RNA, NAAT NEGATIVE 10/07/25 10/07/25 10/07/25 00:04 02:35 06:33 WBC 6.91 RBC 3.95 L Hgb 12.1 Hct 35.6 L MCV 90.1 MCH 30.6 MCHC 34.0 RDW Std Deviation 45.1 RDW Coeff of Gely 13.6 Plt Count 305 MPV 9.6 Immature Gran % (Auto) 0.1 Neut % (Auto) 71.1 Lymph % (Auto) 19.5 Mckenzie % (Auto) 7.4 Eos % (Auto) 1.2 Baso % (Auto) 0.7 Neut # (Auto) 4.91 Lymph # (Auto) 1.35 Mckenzie # (Auto) 0.51 Eos # (Auto) 0.08 Baso # (Auto) 0.05 Immature Gran # (Auto) 0.01 Sodium 138 Potassium 3.6 Chloride 102 Carbon Dioxide 30 Anion Gap 6 BUN 13 Creatinine 0.58 L Est Cr Clr Drug Dosing 87.2 eGFR 99.12 BUN/Creatinine Ratio 22.4 H Glucose 113 H POC Glucose 92 Calcium 9.3 Magnesium Total Bilirubin AST ALT Alkaline Phosphatase Troponin I High Sens Total Protein Albumin Globulin Albumin/Globulin Ratio TSH Free T4 Urine Color Urine Appearance Urine pH Ur Specific [place] Urine Protein Urine Glucose (UA) Urine Ketones Urine Blood Urine Nitrite Urine Bilirubin Urine Urobilinogen Ur Leukocyte Esterase Urine WBC (Auto) Urine RBC (Auto) U Hyaline Cast (Auto) U Epithel Cells (Auto) Urine Bacteria (Auto) Urine Comment SARS-CoV-2 (PCR) NEGATIVE Influenza Type A (PCR) Negative Influenza Type B (PCR) Negative RSV (RT-PCR) Negative SARS-CoV-2, RNA, NAAT 10/07/25 10/07/25 07:43 11:54 WBC RBC Hgb Hct MCV MCH MCHC RDW Std Deviation RDW Coeff of Gely Plt Count MPV Immature Gran % (Auto) Neut % (Auto) Lymph % (Auto) Mckenzie % (Auto) Eos % (Auto) Baso % (Auto) Neut # (Auto) Lymph # (Auto) Mckenzie # (Auto) Eos # (Auto) Baso # (Auto) Immature Gran # (Auto) Sodium Potassium Chloride Carbon Dioxide Anion Gap BUN Creatinine Est Cr Clr Drug Dosing eGFR BUN/Creatinine Ratio Glucose POC Glucose 127 H 157 H Calcium Magnesium Total Bilirubin AST ALT Alkaline Phosphatase Troponin I High Sens Total Protein Albumin Globulin Albumin/Globulin Ratio TSH Free T4 Urine Color Urine Appearance Urine pH Ur Specific [place] Urine Protein Urine Glucose (UA) Urine Ketones Urine Blood Urine Nitrite Urine Bilirubin Urine Urobilinogen Ur Leukocyte Esterase Urine WBC (Auto) Urine RBC (Auto) U Hyaline Cast (Auto) U Epithel Cells (Auto) Urine Bacteria (Auto) Urine Comment SARS-CoV-2 (PCR) Influenza Type A (PCR) Influenza Type B (PCR) RSV (RT-PCR) SARS-CoV-2, RNA, NAAT Diagnostic Findings Abdomen/Pelvis CT 10/06/25 20:17 Exam(s): CT ABDOMEN + PELVIS With Contrast IV Amt: 90 ml optiray 320 EXAM: CT Abdomen and Pelvis With Intravenous Contrast CLINICAL HISTORY: Reason for exam: weak, utis. TECHNIQUE: Axial computed tomography images of the abdomen and pelvis with intravenous contrast. CTDI is 15.6 mGy and DLP is 667.71 mGy-cm. Automated exposure control was utilized for the study. A dose lowering technique was utilized adhering to the principles of ALARA. CONTRAST: Patient received 90 ml optiray 320 of IV contrast COMPARISON: No relevant prior studies available. FINDINGS: Lung bases: Unremarkable. No mass. No consolidation. Mediastinum: 2 x 1 cm low-density lesion in the right posteromedial lung/mediastinum, partially visualized on the uppermost images. ABDOMEN: Liver: Unremarkable. No mass. Gallbladder and bile ducts: Unremarkable. No calcified stones. No ductal dilation. Pancreas: Unremarkable. No mass. No ductal dilation. Spleen: Unremarkable. No splenomegaly. Adrenals: Unremarkable. No mass. Kidneys and ureters: Nonobstructing left renal calculi, largest 5 mm. 5 mm calcification in or adjacent to the right mid ureter. Series 6, image 164. Favor it is vascular. Low-attenuation foci right kidney which may be due to cysts but are too small to characterize. No follow- up is necessary. 4.5 cm left renal cyst. Stomach and bowel: Unremarkable. No obstruction. No mucosal thickening. PELVIS: Appendix: No findings to suggest acute appendicitis. Bladder: Mild bladder wall thickening of moderately distended bladder. Reproductive: Unremarkable as visualized. ABDOMEN and PELVIS: Intraperitoneal space: Unremarkable. No free air. No significant fluid collection. Bones/joints: Degenerative changes of the lower lumbosacral spine. Likely focal severe spinal canal stenoses at L3-L4 and L4-L5. No acute fracture. No dislocation. Soft tissues: Unremarkable. Vasculature: Moderate atherosclerotic calcifications. Lymph nodes: Unremarkable. No enlarged lymph nodes. IMPRESSION: 1. Mild bladder wall thickening of moderately distended bladder. Correlates with cystitis. 2. Nonobstructing left renal calculi, largest 5 mm. 3. 5 mm calcification in or adjacent to the right mid ureter. Series 6, image 164. Favor it is vascular. No hydronephrosis. 4. 2 x 1 cm low-density lesion in the right posteromedial lung/mediastinum, partially visualized on the uppermost images. Possible bronchogenic cyst versus other lesion. Limited partial visualization. Correlate with priors if available or consider follow-up chest CT. 5. Degenerative changes of the lower lumbosacral spine. Likely focal severe spinal canal stenoses at L3-L4 and L4-L5. Electronically signed by: Nadya Cuello M.D. 10/07/25 01:[address] 10/06/25 23:17 EXAM: CT head/brain wo con CLINICAL HISTORY: Transient blurred vision. TECHNIQUE: Axial non-contrast CT scan of the brain was performed from the skull base to the high parietal region in axial, sagittal, and coronal reconstructions. One of the following dose reduction techniques were utilized for this exam: Automated exposure control, adjustment of the mA and/or kV according to patient size, and use of iterative reconstruction. COMPARISON: No prior study for comparison. FINDINGS: Brain Parenchyma: A small hypodense area is seen at the anterior limb of the right internal capsule, with no significant surrounding nuha-lesional edema or mass effect. Normal attenuation of the left cerebral hemisphere, cerebellum, and brainstem. No evidence of acute infarct, hemorrhage, or mass effect. No abnormal areas of hyperattenuation. Ventricular System: Ventricles are normal in size and configuration. No evidence of hydrocephalus or ventricular enlargement. Subarachnoid Spaces: Normal sulci and cisterns. No evidence of subarachnoid hemorrhage or extra-axial fluid collections. Cerebellum and Brainstem: No masses, lesions, or areas of abnormal density. Orbits: Normal appearance of the globes, optic nerves, and extraocular muscles. No evidence of orbital masses or abnormal density. Sinuses: Clear paranasal sinuses. No evidence of sinusitis or mucosal thickening. Mastoid Air Cells: Clear mastoid air cells. No evidence of mastoiditis. Skull: Normal skull morphology. IMPRESSION: 1. No evidence of hemorrhage or established territorial ischemic infarction. 2. A small hypodense area is seen at the anterior limb of the right internal capsule, with no significant surrounding nuha-lesional edema or mass effect, likely due to prior vascular event. 3. Early changes of acute ischemic infarction may not be detected on CT scan, MRI DWI is the imaging modality of choice. Electronically signed by Spencer Moran 10-07-2025 02:26 AM Brain MRI 10/07/25 03:16 MRI OF THE BRAIN WITHOUT IV CONTRAST CLINICAL HISTORY: Transient blurry vision COMPARISON STUDY: CT of the brain dated 10/07/2025. TECHNIQUE: MRI of the brain was performed utilizing various T1 and T2-weighted sequences in the axial, sagittal, and coronal planes. IV contrast was not administered for this examination. FINDINGS: Brain parenchyma: There is age-related involutional change noting mild subcortical and periventricular microangiopathic disease. There is no hemorrhage or mass effect. There is no restricted diffusion to suggest acute ischemia. Hester-white matter differentiation is preserved. No extra-axial fluid collection is seen. The cerebellar tonsils are normal in configuration. Ventricles, sulci, and cisterns: Prominent secondary to involutional change. Pituitary and sella: Unremarkable. Intracranial vasculature: Normal flow voids are maintained at the skull base. Orbits: The bony orbits are grossly intact. Orbital contents are normal in appearance noting bilateral ocular lens implants. Sinuses and mastoids: Clear. Calvarium: Unremarkable. Cervical cord: Partially visualized cervical spinal cord is normal in morphology and signal intensity. IMPRESSION: No acute intracranial abnormality. ACT 112: Negative or not required by law. Electronically signed by: Dennys Barraza M.D. 10/07/2025 12:34 PM Head MRA 10/07/25 03:16 MR ANGIOGRAM OF THE BRAIN CLINICAL HISTORY: Transient blurry vision. COMPARISON STUDY: MRI of the brain performed concurrently on 10/07/2025. TECHNIQUE: 3-D [id number] MR angiography of the intracranial circulation is performed. 3-D tumble views are created and assessed. IV contrast was not administered for this examination. FINDINGS: The [place] is developmentally completed. The internal carotid arteries are widely patent bilaterally, as are the anterior and middle cerebral arteries. The vertebrobasilar system and posterior cerebral arteries are widely patent. The vertebral arteries are codominant. There is no aneurysm, high-grade stenosis, or focal vessel cutoff seen throughout the intracranial circulation. The brain parenchyma is normal as visualized. IMPRESSION: Unremarkable MR angiogram of the brain. ACT 112: Negative or not required by law. Electronically signed by: Dennys Barraza M.D. 10/07/2025 12:[address] 10/07/25 09:00 CT SCAN OF THE CHEST WITH IV CONTRAST CLINICAL HISTORY: Possible mediastinal lesion seen on abdominal CT. COMPARISON STUDY: Chest x-ray dated 10/06/2025. Abdominal CT dated 10/06/2025. TECHNIQUE: Following the IV administration of 94 cc of Optiray 320, CT scan of the thorax was performed from the thoracic inlet to the upper abdomen. Images are reviewed in the axial, sagittal, and coronal planes. IV contrast was administered without complication. A dose lowering technique was utilized adhering to the principles of ALARA. CT DOSE: 583.96 mGy.cm FINDINGS: Thyroid: Imaged portions of the thyroid gland are normal in size and attenu ation. Thoracic aorta: There is mild atherosclerotic calcification of the thoracic aorta, which is normal in caliber and demonstrates standard 3-vessel arch anatomy. No dissection is seen. Pulmonary vasculature: The pulmonary trunk is normal in caliber. There are no filling defects identified in the central pulmonary vessels to indicate pulmonary embolus. Note that this examination was not protocoled for evaluation of the pulmonary arteries. Heart: The heart is top normal in size noting a small pericardial effusion. There is coronary artery atherosclerosis. Lungs and pleural spaces: There is no airspace consolidation or pleural effusion. The trachea and central airways are clear. Mediastinum: There is a calcified subcarinal node. No adenopathy is seen. Clara: Clear. Axillae: Surgical clips are noted in the right axilla. There is no axillary lymphadenopathy. Upper abdomen: A 4.6 cm left renal cyst is partially imaged. A subcentimeter splenic hypodensity on image #195 is statistically of doubtful significance. Skeletal structures: The skeletal structures are osteopenic. No lytic or blastic bony lesions are seen. Mild arthritic change is seen in the shoulders. Soft tissues: Postsurgical change is suggested in the right breast. There is a 13 mm focus of asymmetric nodular enhancement involving the right nipple seen on image #168, as well as an additional tiny enhancing nodule in the right breast suggested on image #148. IMPRESSION: 1. No mediastinal lesion is identified. The abnormality questioned on the abdominal CT corresponds to a loculation of pericardial fluid. 2. The lungs are clear. 3. Postsurgical change it is suggested in the right breast with tiny foci of asymmetric nodular enhancement. This is not well assessed by CT. Nonemergent correlation with dedicated breast imaging is recommended. 4. Coronary artery atherosclerosis. 5. Additional findings as above. ACT 112: Negative or not required by law. Electronically signed by: Dennys Barraza M.D. 10/07/2025 12:15 PM (1) Parkinson disease Dyskinesia presence: without dyskinesia Fluctuating manifestations: with fluctuating manifestations Qualified Code(s): G20.A2 - Parkinson's disease without dyskinesia, with fluctuations
[2025-10-07] MEDS: cefTRIAXone SODIUM 2,000 MG/50 ML BAG IV SCH (13:11)
[2025-10-07] MEDS: AZTREONAM 2,000 MG in DEXTROSE 5% MINI-B 100 ML IV SCH (15:18)
[2025-10-08] MEDS: LEVOTHYROXINE SODIUM 50 MCG TABLET PO SCH (05:49)
[2025-10-08 07:33] LABS: Hematocrit (blood only) 36.9 % (37.0-47.0); Hemoglobin 13.0 g/dL (12.0-16.0); Mean Corpuscular Hemoglobin 31.6 pg (25.0-34.0); Mean Corpuscular Volume 89.6 fL (80.0-100.0); Platelet Count 311 K/uL (130-400); RDW Standard Deviation 44.3 fL (36.4-46.3); Red Blood Count 4.12 M/uL (4.20-5.40); White Blood Count 5.74 K/ul (4.8-10.8)
[2025-10-08 08:04] LABS: Anion Gap 8.0 (3-11); Blood Urea Nitrogen 13.0 mg/dl (6-23); Calcium 9.4 mg/dl (8.6-10.3); Carbon Dioxide 29.0 mmol/L (21-32); Chloride 102.0 mmol/L (98-107); Creatinine Clr Calc Pharmacy 99.9 ml/min; Glucose 123.0 mg/dl (70-99(Fasting)); Potassium 3.7 mmol/L (3.5-5.1); Sodium 139.0 mmol/L (136-145)
[2025-10-08] MEDS: CYANOCOBALAMIN (B-12) 500 MCG TABLET PO SCH (09:47)
[2025-10-08] MEDS: VALSARTAN 80 MG TAB PO SCH (09:49)
--- NOTE | 2025-10-08 12:14 | Hospitalist Progress Note ---
Date of Service October 08, 2025 Assessment & Plan (1) Parkinson's disease with dyskinesia and fluctuating manifestations: (2) Diabetes mellitus type 2, controlled: (3) Hypothyroidism: (4) Depression with anxiety: (5) Lower urinary tract symptoms (LUTS): Plan Patient 65-year-old female who essentially is struggling with symptoms related to her Parkinson's. Advanced imaging done yesterday no acute abnormalities Reviewed neurology recommendations, discontinuing entacapone, and continuing current dose of Sinemet Patient's BuSpar increased, seems to been effective Increased Synthroid in the setting of elevated TSH, anticipate can continue to see improvement as she is on the more therapeutic dose. Awaiting most recent urine culture, if no specific growth anticipate discontinuing antibiotics Continue to monitor glucose and cover with insulin Extensive conversation and update with the patient's son on the phone. He seems committed to taking patient home agreeable to resuming home health care if communication between them and the home health services is improved. Updated case management plans for discharge. Admission and Anticipated Discharge Date Admission Date: October 06, 2025 Subjective Patient sitting up in the chair, seems significantly improved over yesterday, smiling, less flat in her responses. Has noted that she is definitely is having less tremor. Physical Exam Physical Exam: Constitutional: Alert, nontoxic HEENT: Mucous membranes moist. Lungs: Clear to auscultation, decreased, no wheezes rales or rhonchi CV: S1-S2, regular Abdomen: Soft, nontender, nondistended Extremities: No significant edema Neuro: Resting tremor improved when compared to yesterday, bradykinesia Movements, Psych: Cooperative, normal mood Results & Data Results & Data Vital Signs (Past 12 Hours) Vital Signs Temp Pulse Pulse Resp BP Pulse Ox O2 Del Method 10/08/25 11:38 36.9 C 85 16 122/62 94 Room Air 10/08/25 07:39 36.6 C 85 14 144/84 H 94 Room Air 10/08/25 07:10 83 10/08/25 03:13 36.7 C 94 H 18 173/69 H 94 Room Air Diagnostic Findings Reviewed imaging, laboratory and diagnostic studies. Pertinent findings as below. CBC stable Electrolytes stable Creatinine 0.[address], unremarkable MRI/MRI of the brain no acute findings Outpatient urine culture mixed growth, contaminant Repeat urine culture pending
[2025-10-08 15:35] VITALS: RESP 18
[2025-10-08 22:48] VITALS: O2SAT 96
[2025-10-09 07:54] VITALS: BP 159/74; PULSE 93; TEMP 98.8
--- NOTE | 2025-10-09 10:09 | Discharge Summary ---
Discharge Summary Date of Service October 09, 2025 Principal Dx & Hospital Course #1 = Principal Diagnosis (1) Parkinson's disease with dyskinesia and fluctuating manifestations: (2) Diabetes mellitus type 2, controlled: (3) Hypothyroidism: (4) Depression with anxiety: (5) Lower urinary tract symptoms (LUTS): Urinary tract infection ruled out Plan Patient 65-year-old female who presented to the emergency room for the second time in 2 days with complaints of some weakness, transient blurred vision and headaches. There was concern for possible urinary tract infection and new neurological symptoms was referred for admission. Patient was cared for in the hospital. There was no significant arrhythmias on telemetry monitoring. She had no further blurred vision. Patient was evaluated by neurology for her visual changes as well as her Parkinson's and concern for possible side effects of the medications. Was evaluated by neurology. Did not feel as though any acute neurological issue occurred. Recommended discontinuing the entacapone that was with her Sinemet and continue her just on Sinemet. These medication changes were made. Also patient seems to be quite depressed due to her overall medical condition. Her BuSpar was increased and this did seem to almost immediately show some improvement. There was concern that she had a urinary tract infection. Cultures were still pending. She was treated with Rocephin. Ultimately all cultures of her urine grew out mixed bacteria consistent with contamination. There is no specific growth of a single organism. Antibiotics were discontinued. She was seen by therapies who recommended home if somebody could be with her at all times. Extensive conversation with the son. He states that he cares for her at home if he is not home grandchildren are there to help. He was comfortable returning home and having home health care resumed. On the day of discharge vital signs are improved. Blood pressure has improved with changing her losartan to valsartan and this will be continued. She will continue home health care and home therapies and follow-up with outpatient providers. Note on admission there was a question of new findings on head CT and abdominal CT. MRI of the brain did not show any acute infarcts or findings. Chest CT did not show any mediastinal mass. Was noted that her TSH was somewhat increased and her Synthroid dose was increased as well. Notes For Next Care Provider Continue home health care/therapies Recommend checking TSH in 4 to 6 weeks and adjusting dose of Synthroid if needed Follow-up with neurology for ongoing management of Parkinson's May need further titration of her antihypertensive medications May need additional treatment for depression. Medication Changes From Visit Entacapone discontinued BuSpar increased to 3 times daily Losartan changed to valsartan for blood pressure control Synthroid dose increased Admission HPI Per Admitting Provider History obtained from patient, family, and records. Medical history significant for hypertension, hyperlipidemia, aortic atherosclerosis as per records, Parkinson's disease, neurogenic bladder as per records, DM 2 on oral medications, hypothyroidism, right breast cancer status post surgery/chemoradiation, bilateral knee osteoarthritis, glaucoma, mood disorder. Recent confinement September 18 to 2024 for generalized weakness attributed to UTI. Patient received a few doses of ceftriaxone. No growth on urine CS. Insurance denied rehab placement as per discharge note. Patient still weak upon return home. Patient's son unhappy with home health services. Increasing weakness with dysuria symptoms over the last few days. No fever, no chills. No chest pain, no SOB. Patient consulted [facility] last night. Patient discharged home on Keflex course. Worsening generalized weakness at home as per son despite antibiotic Rx. Transient blurred vision without headache symptoms. Denies chest pain, cough, SOB. Patient return to ER for evaluation. IV ceftriaxone administered at the ER. 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 Lungs: Clear to auscultation, decreased, no wheezes rales or rhonchi CV: S1-S2, regular Abdomen: Soft, nontender, nondistended Extremities: No significant edema Neuro: Parkinson's resting tremor, cogwheel rigidity, seems a little bit brighter in affect but does continue with parkinsonian facial features. Psych: Cooperative, depressed mood but improving from admission Updated Medication List Medication Instructions Recorded Confirmed Type citalopram 40 mg tablet 40 mg PO QAM 09/18/25 10/06/25 History latanoprost 0.005 % eye drops 1 drp OPB HS 09/18/25 10/06/25 History metformin 1,000 mg tablet 1,000 mg PO QAM 09/18/25 10/06/25 History polyethylene glycol 3350 17 gram 17 g PO DAILY PRN Constipation 09/18/25 10/06/25 History oral powder packet (Miralax) pravastatin 40 mg tablet 40 mg PO QAM 09/18/25 10/06/25 History cyanocobalamin (vitamin B-12) 250 250 mcg PO Q2D #0 tabs 09/22/25 10/06/25 Rx mcg tablet estradiol 0.01% (0.1 mg/gram) 1 applic vaginal QAM 10/06/25 10/06/25 History vaginal cream buspirone 10 mg tablet 10 mg PO TID #90 tabs 10/09/25 Rx carbidopa 25 mg-levodopa 100 mg 1 tab PO TID@08,14,20 #90 tabs 10/09/25 Rx tablet (Sinemet) levothyroxine 50 mcg tablet 50 mcg PO DAILYBB #30 tabs 10/09/25 Rx (Synthroid) valsartan 80 mg tablet (Diovan) 160 mg (2 x 80 mg) PO QAM #30 tabs 10/09/25 Rx Hospital Stay Data Consultations 10/06/25 22:15 ED Decision to Admit Stat 10/07/25 11:07 Consult Neurology Routine Diagnostic Imagining Performed 10/06/25 20:17 CT abd pelvis IV con only Stat 10/06/25 23:17 CT head/brain wo con Stat 10/07/25 03:16 MR angio head wo con Routine MR brain wo con Routine 10/07/25 09:00 CT chest with contrast [CT chest diagnostic w con] Routine Reviewed imaging, laboratory and diagnostic studies. Pertinent findings as below. Blood cultures no growth Urine culture from 10/06 and 10/05 showed no specific growth mixed bacteria WBCs 5.7 Hemoglobin 13.0 Electrolytes within normal range Creatinine 0.[address] of the chest showed no mediastinal lesion, no no pulmonary infiltrates, small pericardial effusion. MRI of the brain showed no acute intracranial abnormalities, age-related involutional changes Pending Results Patient Have Any Pending Studies at Discharge: No Discharge Instructions Given to Patient (Per Discharging Provider) Continue therapies with home health Follow-up with your neurologist with ongoing medication adjustments for your Parkinson's Have your PCP check your TSH in 4 to 6 weeks You did not have a urinary tract infection. You do not need any more antibiotics Home Health Attestation I certify that this patient is under my care and that I, or a physicians psychiatric technician assistant working with me, had a face to-face encounter that meets the home health [id number] encounter requirements with this patient. The encounter with the patient was in whole, or in part, for the following medical condition, which is the primary reason for home health care (list medical condition): I certify that, based on my findings, the following services are medically necessary home health services: My clinical findings support the need for the above services because: Further, I certify that my clinical findings support that this patient is homebound (i.e. absences from home require considerable and taxing effort and are for medical reasons or latter-day services or infrequently or of short duration when for other reasons) because: Certification for Home Health Services: Based on the above findings, I certify that this patient is confined to the home and needs intermittent usp care, physical therapy and/or speech therapy or continues to need occupational therapy. The patient is under my care, and I have initiated the establishment of the plan of care. This patient will be followed by a physician who will periodically review the plan of care. Total Time Total Time Spent Total Time Spent (In Minutes): 40
== END 2025-10-09 11:44 | disposition home health service (06) | DRG 57 ==
LOC: ED 19:20 → INTOOBSV 22:30 → SUATTDRO 22:30 → 2N 22:30

== ENCOUNTER 2025-10-17 20:59 | Observation (INO) ==
--- NOTE | 2025-10-17 22:16 | Emergency Department Note ---
Impression & Plan Left leg weakness, Left leg paresthesias, Acute dehydration ED Provider Note Name: CLAUDE KAPOOR Age: 65 Sex: Female Arrives Via: Walk-In Informant: Patient, son ED Provider: Rudolph Elizabeth MD Chief Complaint: Left leg weakness Impression: As per impressions above Medical Decision Makin-year-old female arrives for evaluation of left-sided leg weakness for the last 24 hours. Patient with a history of diabetes, hypertension, dyslipidemia as well as relatively advanced Parkinson's. She has had multiple hospitalizations over the last few weeks due to weakness and UTIs with multiple adjustments to her Parkinson's medications. Patient is on no anticoagulation or antiplatelet medication. Weakness in legs has progressed over the last 24 hours and is reportedly causing issues with walking though son notes this is tough to quantify as it had actually much better now that she is on proper medication dosing. Examination without any specific neurologic deficits other than some weakness in the left arm. She clearly has Parkinson's tremor. Symptoms ongoing for almost 24 hours is not stroke alert. A CT of the head was obtained which is unremarkable no. Laboratory workup is unremarkable. Patient is at high risk of having a stroke and given her symptoms it is difficult to fully state that this is not strokelike. She does not have any low back pain that is lumbar pathology seems less likely though is not ruled out either. In addition given the paresthesias and weakness she is a significantly high fall risk. After an extensive discussion with patient and son I noted that I cannot rule out stroke at this time and typically would hospitalize him and to further figure out what is going on given her significant risk factors. They are agreeable to this plan and thus hospitalist was consulted. I will note that patient did have an MRI a week ago which was unremarkable. Unfortunately the symptoms have only began yesterday thus I cannot state that she has not had neurologic event. Of note laboratory workup is reassuring other than mildly elevated BUN. Son admits that patient was wandering last several days. Thus it is likely some mild dehydration as he does not have any reported black or bloody stools, nor she is anemic. Triage/Nursing Notes reviewed by Me External Chart Review by me: Extensive chart reviewed by me including discharge summary from 10/09/2025 during recent hospitalization for past medical history and recent care. Differential:Infection, dehydration, metabolic abnormality, hypo/hyperglycemia, electrolyte disturbance, anemia, hypoxia, cardiac sources, intracerebral event, toxicologic, neurologic, as well as other pathologies. Vital Signs: reviewed and remarkable for HTN Interventions: nss bolus Labs:ED labs Reviewed by me and remarkable for mild bun elevation Imaging:CT of the head without contrast as per my informal interpretation, no intracranial hemorrhage or mass effect appreciated. EKG:As per my interpretation. Patient with strokelike symptoms. Normal sinus rhythm at 86 bpm with a QTc of 428. No ectopy nor ischemia appreciated. Compared to EKG of 10/06/2025 no significant change Cardiac/Tele Monitoring: Cardiac Monitoring: An Order was placed for continuous cardiac monitoring. The monitor shows a rate of 80 with a normal sinus rhythm. Consults:Discussed with Dr Morales who will further evaluate Plan: Disposition:Hospitalization. Condition: Fair History of Present Illness: 65-year-old female arrives for evaluation of left leg weakness. Patient notes several days of gradually worsening left leg weakness. Initially started in her toes though today it became significantly worse and goes all the way up her leg. She notes a slight tingling and paresthesia associated with it. Feels like the leg is not quite as strong as it had been just yesterday. She does note a mild amount of discomfort almost a squeezing sensation. No swelling in the leg nor discoloration. She is not having any low back pain or abdominal pain associated with this. She denies any change in her neurologic status. She has chronic left arm weakness which was presumed secondary to her Parkinson's. Her son notes that there have been multiple changes to her medications last few weeks and several hospitalizations due to weakness as well as UTIs. Patient however has never had an isolated weakness like the current issue. She denies any headache, visual changes, slurred speech, confusion, chest pain, shortness of breath, palpitations or other concerning signs or symptoms. She does have a history of hypertension, dyslipidemia, diabetes, Parkinson's amongst others. She does not take any blood thinners and does not take aspirin daily. She has no history of CVA or WI history. She denies any falls, trauma, injuries. Past Medical History:See Below Home Medications:See Below Allergies:See Below Vitals:Blood Pressure: 181/96, Pulse 92, RR 20, T 37.0C, O2 98% on RA Physical Exam: GENERAL: Patient is anxious appearing and in minimal distress. RESPIRATORY: No dyspnea. Clear to auscultation and equal bilaterally. CARDIOVASCULAR: Regular rate and rhythm.No murmur appreciated. GASTROINTESTINAL: Abdomen soft, non-tender, no peritonitis. BACK: No midline tenderness, no CVA tenderness EXTREMITIES: Normal motion all extremities, no cyanosis, no edema. NEUROLOGIC: Examination consistent with parkinsonian signs with the room air. There is a slightly lower left eyebrow than the right however she has full strength on both sides of the face and normal sensation no clear evidence of cranial nerve deficit by examination. She does have weakness in the left arm and hand which she states is chronic. She has no isolated weakness with lifting leg off the bed compared to the right leg. She has full sensation of the right leg. There is no discoloration either. Alert and oriented. SKIN: No rash, no jaundice, no diaphoresis. PSYCH: Appropriate GCS: 15 ED Course: Times/Reassessments: Patient stable blood pressure has improved and she is agreeable to discussion with hospitalist for hospital Rudolph Elizabeth MD Past Med/Surg History Problem List (Updated 10/18/25 @ 00:09 by Rudolph Elizabeth MD) Acute dehydration (Acute) Left leg paresthesias (Acute) Left leg weakness (Acute) Parkinson's disease with dyskinesia and fluctuating manifestations Depression with anxiety Hypothyroidism Diabetes mellitus type 2, controlled Generalized weakness Acute UTI (Acute) Parkinson disease (Acute) Parkinson's disease (Acute) Adverse drug effect (Acute) Tremors of nervous system (Acute) Generalized weakness (Acute) Social History Smoking Status: Never smoker Second Hand Exposure: No; Do You Dip or Chew Tobacco: No; Hx Alcohol Use: No Hx Substance Use: No Preferred Language: Romansh Communication Ability: Effective [employer] Required: No Beliefs That Will Affect Care: None Current Living Situation: Family Current Living Situation Comment: [place] Feels Safe at Home: Yes Assistive Devices: Cane Allergies Allergies Allergy/AdvReac Type Severity Reaction Status Date / Time lisinopril Allergy Swelling Verified 10/17/25 23:18 of Lip/Tongue/Throat Home Meds Home Medications Medication Instructions Recorded Confirmed citalopram 40 mg tablet 40 mg PO QAM 09/18/25 10/17/25 latanoprost 0.005 % eye drops 1 drp OPB HS 09/18/25 10/17/25 metformin 1,000 mg tablet 1,000 mg PO QAM 09/18/25 10/17/25 polyethylene glycol 3350 17 gram 17 g PO DAILY PRN Constipation 09/18/25 10/17/25 oral powder packet (Miralax) estradiol 0.01% (0.1 mg/gram) 1 applic vaginal QAM 10/06/25 10/17/25 vaginal cream carbidopa 25 mg-levodopa 100 mg 2 tab PO TID@08,14,20 10/17/25 10/17/25 tablet (Sinemet) trazodone 50 mg tablet 50 mg PO HS PRN Insomnia 10/18/25 10/18/25 triamcinolone acetonide 0.1 % 1 applic topical BID PRN Skin 10/18/25 10/18/25 topical cream Irritation Previous Rx's Medication Instructions Recorded cyanocobalamin (vitamin B-12) 250 250 mcg PO Q2D #0 tabs 09/22/25 mcg tablet buspirone 10 mg tablet 10 mg PO TID #90 tabs 10/09/25 levothyroxine 50 mcg tablet 50 mcg PO DAILYBB #30 tabs 10/09/25 (Synthroid) valsartan 80 mg tablet (Diovan) 160 mg (2 x 80 mg) PO QAM #30 tabs 10/09/25 Results & Data (ED) Vital Signs Vital Signs - 24 hr 10/17/25 21:09 10/17/25 21:15 10/17/25 21:31 Temperature 37.0 C Temperature Source Oral Pulse Rate 92 H Pulse Rate from SpO2 Sensor Pulse Rhythm Regular Pulse Strength Normal Respiratory Rate 20 Respiratory Effort / Characteristics Non-Labored Spontaneous Respiratory Depth Normal Respiratory Pattern Regular Blood Pressure 181/96 H 163/104 H Blood Pressure Mean 124 126 Blood Pressure Position Lying Pulse Oximetry 96 98 Oxygen Delivery Method Room Air Room Air Sepsis Recent Fever Within 48 Hours No Sepsis New/Unexplained Change in Mental Status N/A Sepsis Action Taken by Nursing No Action Required 10/17/25 21:31 10/17/25 21:31 10/17/25 21:31 Temperature Temperature Source Pulse Rate Pulse Rate from SpO2 Sensor Pulse Rhythm Pulse Strength Respiratory Rate Respiratory Effort / Characteristics Respiratory Depth Respiratory Pattern Blood Pressure 163/104 H 163/104 H 163/104 H Blood Pressure Mean 126 126 126 Blood Pressure Position Pulse Oximetry Oxygen Delivery Method Sepsis Recent Fever Within 48 Hours Sepsis New/Unexplained Change in Mental Status Sepsis Action Taken by Nursing 10/17/25 21:31 10/17/25 21:33 10/17/25 21:42 Temperature Temperature Source Pulse Rate 96 H 86 Pulse Rate from SpO2 Sensor 90 86 Pulse Rhythm Pulse Strength Respiratory Rate 18 20 Respiratory Effort / Characteristics Respiratory Depth Respiratory Pattern Blood Pressure 163/104 H Blood Pressure Mean 126 Blood Pressure Position Pulse Oximetry 96 95 Oxygen Delivery Method Sepsis Recent Fever Within 48 Hours Sepsis New/Unexplained Change in Mental Status Sepsis Action Taken by Nursing 10/17/25 21:51 10/17/25 22:00 10/17/25 22:00 Temperature Temperature Source Pulse Rate 83 80 Pulse Rate from SpO2 Sensor 84 79 Pulse Rhythm Pulse Strength Respiratory Rate 21 17 Respiratory Effort / Characteristics Respiratory Depth Respiratory Pattern Blood Pressure 152/77 H Blood Pressure Mean 102 Blood Pressure Position Pulse Oximetry 96 93 Oxygen Delivery Method Sepsis Recent Fever Within 48 Hours Sepsis New/Unexplained Change in Mental Status Sepsis Action Taken by Nursing 10/17/25 22:00 10/17/25 22:00 10/17/25 22:00 Temperature Temperature Source Pulse Rate Pulse Rate from SpO2 Sensor Pulse Rhythm Pulse Strength Respiratory Rate Respiratory Effort / Characteristics Respiratory Depth Respiratory Pattern Blood Pressure 152/77 H 152/77 H 152/77 H Blood Pressure Mean 102 102 102 Blood Pressure Position Pulse Oximetry Oxygen Delivery Method Sepsis Recent Fever Within 48 Hours Sepsis New/Unexplained Change in Mental Status Sepsis Action Taken by Nursing 10/17/25 22:12 10/17/25 22:21 10/17/25 22:47 Temperature Temperature Source Pulse Rate 87 85 85 Pulse Rate from SpO2 Sensor 88 85 Pulse Rhythm Pulse Strength Respiratory Rate 23 20 Respiratory Effort / Characteristics Respiratory Depth Respiratory Pattern Blood Pressure Blood Pressure Mean Blood Pressure Position Pulse Oximetry 95 97 Oxygen Delivery Method Sepsis Recent Fever Within 48 Hours Sepsis New/Unexplained Change in Mental Status Sepsis Action Taken by Nursing Laboratory Data 10/17/25 Unknown 10/17/25 Unknown Lab Results 10/17/25 Range/Units Unknown WBC 7.78 (4.8-10.8) K/ul RBC 4.00 L (4.20-5.40) M/uL Hgb 12.1 (12.0-16.0) g/dL Hct 36.5 L (37.0-47.0) % MCV 91.3 (80.0-100.0) fL MCH 30.3 (25.0-34.0) pg MCHC 33.2 (32.0-36.0) g/dL RDW Std Deviation 46.5 H (36.4-46.3) fL RDW Coeff of Gely 13.7 (11.5-14.5) % Plt Count 328 (130-400) K/uL MPV 9.5 (9.4-12.4) fL Immature Gran % (Auto) 0.3 % Neut % (Auto) 69.6 % Lymph % (Auto) 19.9 % [place] % (Auto) 8.1 % Eos % (Auto) 1.2 % Baso % (Auto) 0.9 % Neut # (Auto) 5.42 (1.40-6.50) K/uL Lymph # (Auto) 1.55 (1.20-3.40) K/uL [place] # (Auto) 0.63 H (0.11-0.59) K/uL Eos # (Auto) 0.09 (0.00-0.50) K/uL Baso # (Auto) 0.07 (0.00-0.20) K/uL Immature Gran # (Auto) 0.02 (0.01-0.20) K/uL Sodium 138 (136-145) mmol/L Potassium 3.4 L (3.5-5.1) mmol/L Chloride 102 (98-107) mmol/L Carbon Dioxide 29 (21-32) mmol/L Anion Gap 7 (3-11) BUN 24 H (6-23) mg/dl Creatinine 0.69 (0.6-1.2) mg/dl Est Cr Clr Drug Dosing Not Reportable eGFR 95.06 BUN/Creatinine Ratio 34.8 H (10-20) Glucose 143 H (70-99(Fasting)) mg/dl Calcium 8.9 (8.6-10.3) mg/dl Magnesium 2.2 (1.7-2.4) mg/dl Troponin I High Sens 5.9 (0-14) pg/ml TSH 1.431 (0.300-4.500) uIu/ml Administered Medications Insulin Aspart (Insulin Aspart Per Unit Charge) 0 units SC ACHS MEGAN Stop: 11/17/25 01:21 Last Admin: 10/18/25 01:32 Dose: Not Given Documented By: LIBRA Lorazepam (Lorazepam 0.5 Mg Tab) 0.5 mg PO TID PRN PRN Reason: Anxiety Stop: 11/17/25 01:38 Last Admin: 10/18/25 01:51 Dose: 0.5 mg Documented By: LIBRA Discontinued Medications Aspirin (Aspirin 81 Mg Ectab) 81 mg PO NOW STA Stop: 10/18/25 00:35 Last Admin: 10/18/25 00:48 Dose: 81 mg Documented By: silviano Sodium Chloride (Nss) 500 mls @ 999 mls/hr IV .Q31M ONE Stop: 10/17/25 23:58 Last Infusion: 10/18/25 01:22 Dose: Infused Documented By: tcm Admin: 10/17/25 23:34 Dose: 999 mls/hr Documented By: silviano Potassium Chloride (Potassium Chloride Crtab 20 Meq Tabcr) 40 meq PO NOW STA Stop: 10/17/25 23:32 Last Admin: 10/18/25 00:10 Dose: 40 meq Documented By: silviano Imaging Data Radiologist's Impression: Head CT 10/17/25 22:12 Exam(s): CT HEAD Without Contrast EXAM: CT Head Without Intravenous Contrast CLINICAL HISTORY: Reason for exam: left leg weakness. OTHER: Other Notes: left leg weakness TECHNIQUE: Axial computed tomography images of the head/brain without intravenous contrast. CTDI is 38.17 mGy and DLP is 625.8 mGy-cm. Automated exposure control was utilized for the study. A dose lowering technique was utilized adhering to the principles of ALARA. Mild motion artifact. COMPARISON: Head CT and MRI brain 10/07/2025. FINDINGS: Brain: No mass, edema, mass effect or acute infarct. No acute hemorrhage. Mild atrophy and chronic, nonspecific white matter disease, stable. Ventricles: No hydrocephalus or midline shift. Bones/joints: No skull fracture. Soft tissues: No scalp hematoma. Visualized Sinuses: Clear. Mastoid air cells: No mastoid effusion. IMPRESSION: 1. Stable age-related findings. 2. No acute infarct, bleed, acute intracranial abnormality, or interval change. Electronically signed by: Carlee Miranda M.D. 10/17/25 23:09 PM Discharge Plan Visit Data Chief Complaint: Neuro Symptoms/Deficit Stated Complaint: LT LEG NUMB, SPREADING ED Provider: Rudolph Elizabeth Discharge Problem: Left leg weakness, Left leg paresthesias, Acute dehydration Patient Disposition: Admitted As Inpatient Condition: Fair Discharge Instructions Interventions: ED Discharge Assessment Last Done: 10/18/25 01:21
[2025-10-17 22:29] LABS: Hematocrit (blood only) 36.5 % (37.0-47.0); Hemoglobin 12.1 g/dL (12.0-16.0); Immature Granulocytes # (auto) 0.02 K/uL (0.01-0.20); Immature Granulocytes % (auto) 0.3 %; Mean Corpuscular Hemoglobin 30.3 pg (25.0-34.0); Mean Corpuscular Volume 91.3 fL (80.0-100.0); Platelet Count 328 K/uL (130-400); RDW Standard Deviation 46.5 fL (36.4-46.3); Red Blood Count 4.00 M/uL (4.20-5.40); White Blood Count 7.78 K/ul (4.8-10.8)
[2025-10-17 22:49] LABS: Anion Gap 7 (3-11); Blood Urea Nitrogen 24 mg/dl (6-23); Calcium 8.9 mg/dl (8.6-10.3); Carbon Dioxide 29 mmol/L (21-32); Chloride 102 mmol/L (98-107); Glucose 143 mg/dl (70-99(Fasting)); Magnesium 2.2 mg/dl (1.7-2.4); Potassium 3.4 mmol/L (3.5-5.1); Sodium 138 mmol/L (136-145)
[2025-10-17 23:03] LABS: Thyroid Stimulating Hormone 1.431 uIu/ml (0.300-4.500)
--- NOTE | 2025-10-17 23:10 | CT Scan Report ---
Exam(s): CT HEAD Without Contrast EXAM: CT Head Without Intravenous Contrast CLINICAL HISTORY: Reason for exam: left leg weakness. OTHER: Other Notes: left leg weakness TECHNIQUE: Axial computed tomography images of the head/brain without intravenous contrast. CTDI is 38.17 mGy and DLP is 625.8 mGy-cm. Automated exposure control was utilized for the study. A dose lowering technique was utilized adhering to the principles of ALARA. Mild motion artifact. COMPARISON: Head CT and MRI brain 10/07/2025. FINDINGS: Brain: No mass, edema, mass effect or acute infarct. No acute hemorrhage. Mild atrophy and chronic, nonspecific white matter disease, stable. Ventricles: No hydrocephalus or midline shift. Bones/joints: No skull fracture. Soft tissues: No scalp hematoma. Visualized Sinuses: Clear. Mastoid air cells: No mastoid effusion. IMPRESSION: 1. Stable age-related findings. 2. No acute infarct, bleed, acute intracranial abnormality, or interval change. Electronically signed by: Carlee Miranda M.D. 10/17/25 23:09 PM
[2025-10-17] MEDS: SODIUM CHLORIDE 0.9% 500 ML IV ONE (23:34)
--- NOTE | 2025-10-17 23:43 | History & Physical Report ---
Date of Service October 17, 2025 Assessment & Plan (1) Left leg weakness: Plan: Assessment and plan below following discussion of case with ED provider and reviewing patient history/pertinent normal/abnormal diagnostic test results. LLE weakness/numbness Rule out CVA hypertension, elevated secondary above hyperlipidemia, on statin Rx aortic atherosclerosis as per records Parkinson's disease, tremors better with recent Sinemet dose adjustment by PCP DM 2 on oral medications, well-controlled as of recent hemoglobin A1c of 6 last September 2025 hypothyroidism, patient currently euthyroid right breast cancer status post surgery/chemoradiation, in remission OBS Admit to med/tele Neurochecks Aspirin for secondary stroke prevention Continue statin Rx MRI/MRA brain, TTE, carotid Dopplers for stroke workup Permissive hypertension until acute stroke ruled out Neurology consult Re: LLE weakness/numbness ISS BG goal 110-140, carb count coverage PT OT eval DVT prophylaxis. Lovenox subcu Full code Patient son requesting updates providers. Mr. Donte Julien, contact #[phone]. Text document was generated using [employer] voice recognition software. It may contain grammatical or spelling errors. Kindly contact undersigned for clarification of any documentation item in question. History of Present Illness Chief Complaint: Left leg weakness Primary Care Provider: Edilson Ann History obtained from patient, family, and records. Medical history significant for hypertension, hyperlipidemia, aortic atherosclerosis as per records, Parkinson's disease, neurogenic bladder as per records, DM 2 on oral medications, hypothyroidism, right breast cancer status post surgery/chemoradiation, bilateral knee osteoarthritis, glaucoma, mood disorder. Monthly admissions since August,. Recent confinement October 06 to 2024 for weakness, transient blurred vision in the setting of Parkinson's disease. Depression felt to be a component of weakness as per Neurology note. Specialist recommended discontinuing entacapone. BuSpar increased at time of discharge. Losartan switched to valsartan for better BP control. Synthroid dose increased at time of discharge due to elevated TSH. Progressive left lower extremity numbness later followed by weakness at time of discharge from hospital. Sinemet dose increased on follow-up visit with PCP yesterday due to increased tremors. Left lower extremity symptoms attributed to medication side effect according to PCP as per patient/family account. Patient brought to ER for evaluation due to worsening left leg weakness/numbness. Denies headache, back pain complaints. No incontinence. SBP 180s upon arrival at the ER. 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 Allergies Allergy/AdvReac Type Severity Reaction Status Date / Time lisinopril Allergy Swelling Verified 10/17/25 23:18 of Lip/Tongue/Throat Home Medications Medication Instructions Recorded Confirmed Type citalopram 40 mg tablet 40 mg PO QAM 09/18/25 10/17/25 History latanoprost 0.005 % eye drops 1 drp OPB HS 09/18/25 10/17/25 History metformin 1,000 mg tablet 1,000 mg PO QAM 09/18/25 10/17/25 History polyethylene glycol 3350 17 gram 17 g PO DAILY PRN Constipation 09/18/25 10/17/25 History oral powder packet (Miralax) cyanocobalamin (vitamin B-12) 250 250 mcg PO Q2D #0 tabs 09/22/25 10/17/25 Rx mcg tablet estradiol 0.01% (0.1 mg/gram) 1 applic vaginal QAM 10/06/25 10/17/25 History vaginal cream buspirone 10 mg tablet 10 mg PO TID #90 tabs 10/09/25 10/17/25 Rx levothyroxine 50 mcg tablet 50 mcg PO DAILYBB #30 tabs 10/09/25 10/17/25 Rx (Synthroid) valsartan 80 mg tablet (Diovan) 160 mg (2 x 80 mg) PO QAM #30 tabs 10/09/25 10/17/25 Rx carbidopa 25 mg-levodopa 100 mg 2 tab PO TID@08,14,20 10/17/25 10/17/25 History tablet (Sinemet) trazodone 50 mg tablet 50 mg PO HS PRN Insomnia 10/18/25 10/18/25 History triamcinolone acetonide 0.1 % 1 applic topical BID PRN Skin 10/18/25 10/18/25 History topical cream Irritation Past Med/Surg History Problem List (Updated 10/18/25 @ 00:09 by Rudolph Elizabeth MD) Acute dehydration (Acute) Left leg paresthesias (Acute) Left leg weakness (Acute) Parkinson's disease with dyskinesia and fluctuating manifestations Depression with anxiety Hypothyroidism Diabetes mellitus type 2, controlled Generalized weakness Acute UTI (Acute) Parkinson disease (Acute) Parkinson's disease (Acute) Adverse drug effect (Acute) Tremors of nervous system (Acute) Generalized weakness (Acute) Social History Smoking Status: Never smoker Second Hand Exposure: No; Do You Dip or Chew Tobacco: No; Hx Alcohol Use: No Hx Substance Use: No Preferred Language: Wolof Communication Ability: Effective Signalman Required: No Beliefs That Will Affect Care: None Current Living Situation: Family Current Living Situation Comment: son Donte Feels Safe at Home: Yes Assistive Devices: Cane Review of Systems Review of Systems: As per HPI, all other systems reviewed and negative Physical Exam Physical Exam: GENERAL: Comfortable, no respiratory distress SKIN: Normal color, warm HEENT: Expressionless face, pink palpebral conjunctivae, no ptosis, moist buccal mucosa NECK : Supple, no tenderness CHEST : CTA, no tenderness HEART : RRR, no obvious murmurs ABDOMEN: Some distention, nontender EXTREMITIES : No LE swelling/tenderness, palpable pulses, no other conspicuous deformities noted NEUROLOGIC : Coherent, no facial asymmetry, rest tremors, MMTS BUE 4/5, BLE 3/5, gait and stance not assessed Results & Data Results & Data Vital Signs (Past 12 Hours) Vital Signs Temp Pulse Resp BP Pulse Ox O2 Del Method 10/17/25 22:47 85 10/17/25 22:21 85 20 97 10/17/25 22:12 87 23 95 10/17/25 22:00 152/77 H 10/17/25 22:00 152/77 H 10/17/25 22:00 152/77 H 10/17/25 22:00 152/77 H 10/17/25 22:00 80 17 93 10/17/25 21:51 83 21 96 10/17/25 21:42 86 20 95 10/17/25 21:33 96 H 18 96 10/17/25 21:31 163/104 H 10/17/25 21:31 163/104 H 10/17/25 21:31 163/104 H 10/17/25 21:31 163/104 H 10/17/25 21:31 163/104 H 10/17/25 21:15 98 Room Air 10/17/25 21:09 37.0 C 92 H 20 181/96 H 96 Room Air Laboratory Results Laboratory Results WBC 7.78 K/ul (4.8-10.8) 10/17/25 Unknown RBC 4.00 M/uL (4.20-5.40) L 10/17/25 Unknown Hgb 12.1 g/dL (12.0-16.0) 10/17/25 Unknown Hct 36.5 % (37.0-47.0) L 10/17/25 Unknown MCV 91.3 fL (80.0-100.0) 10/17/25 Unknown MCH 30.3 pg (25.0-34.0) 10/17/25 Unknown MCHC 33.2 g/dL (32.0-36.0) 10/17/25 Unknown RDW Std Deviation 46.5 fL (36.4-46.3) H 10/17/25 Unknown RDW Coeff of Gely 13.7 % (11.5-14.5) 10/17/25 Unknown Plt Count 328 K/uL (130-400) 10/17/25 Unknown MPV 9.5 fL (9.4-12.4) 10/17/25 Unknown Immature Gran % (Auto) 0.3 % 10/17/25 Unknown Neut % (Auto) 69.6 % 10/17/25 Unknown Lymph % (Auto) 19.9 % 10/17/25 Unknown Nash % (Auto) 8.1 % 10/17/25 Unknown Eos % (Auto) 1.2 % 10/17/25 Unknown Baso % (Auto) 0.9 % 10/17/25 Unknown Neut # (Auto) 5.42 K/uL (1.40-6.50) 10/17/25 Unknown Lymph # (Auto) 1.55 K/uL (1.20-3.40) 10/17/25 Unknown Nash # (Auto) 0.63 K/uL (0.11-0.59) H 10/17/25 Unknown Eos # (Auto) 0.09 K/uL (0.00-0.50) 10/17/25 Unknown Baso # (Auto) 0.07 K/uL (0.00-0.20) 10/17/25 Unknown Immature Gran # (Auto) 0.02 K/uL (0.01-0.20) 10/17/25 Unknown Sodium 138 mmol/L (136-145) 10/17/25 Unknown Potassium 3.4 mmol/L (3.5-5.1) L 10/17/25 Unknown Chloride 102 mmol/L (98-107) 10/17/25 Unknown Carbon Dioxide 29 mmol/L (21-32) 10/17/25 Unknown Anion Gap 7 (3-11) 10/17/25 Unknown BUN 24 mg/dl (6-23) H 10/17/25 Unknown Creatinine 0.69 mg/dl (0.6-1.2) 10/17/25 Unknown Est Cr Clr Drug Dosing Not Reportable 10/17/25 Unknown eGFR 95.06 10/17/25 Unknown BUN/Creatinine Ratio 34.8 (10-20) H 10/17/25 Unknown Glucose 143 mg/dl (70-99(Fasting)) H 10/17/25 Unknown Calcium 8.9 mg/dl (8.6-10.3) 10/17/25 Unknown Magnesium 2.2 mg/dl (1.7-2.4) 10/17/25 Unknown Troponin I High Sens 5.9 pg/ml (0-14) 10/17/25 Unknown TSH 1.431 uIu/ml (0.300-4.500) 10/17/[address] 10/17/25 22:12 Exam(s): CT HEAD Without Contrast EXAM: CT Head Without Intravenous Contrast CLINICAL HISTORY: Reason for exam: left leg weakness. OTHER: Other Notes: left leg weakness TECHNIQUE: Axial computed tomography images of the head/brain without intravenous contrast. CTDI is 38.17 mGy and DLP is 625.8 mGy-cm. Automated exposure control was utilized for the study. A dose lowering technique was utilized adhering to the principles of ALARA. Mild motion artifact. COMPARISON: Head CT and MRI brain 10/07/2025. FINDINGS: Brain: No mass, edema, mass effect or acute infarct. No acute hemorrhage. Mild atrophy and chronic, nonspecific white matter disease, stable. Ventricles: No hydrocephalus or midline shift. Bones/joints: No skull fracture. Soft tissues: No scalp hematoma. Visualized Sinuses: Clear. Mastoid air cells: No mastoid effusion. IMPRESSION: 1. Stable age-related findings. 2. No acute infarct, bleed, acute intracranial abnormality, or interval change. Electronically signed by: Carlee Miranda M.D. 10/17/25 23:09 PM Diagnostic Findings EKG as per my interpretation :Rate 85, NSR, normal axis, no ischemia
[2025-10-18 00:08] LABS: Appearance Urine Cloudy (Clear); Bacteria Urine Automated 1+ (None Seen); Cast Urine Automated 0-2 /lpf (0-2); Glucose Urine UA Negative (Negative)
[2025-10-18] MEDS: POTASSIUM CHLORIDE CRTAB 20 MEQ TABCR PO STA (00:10)
[2025-10-18] MEDS ORDERED: POLYETHYLENE (MIRALAX) 17 GM PACK PO PRN (00:34)
[2025-10-18] MEDS ORDERED: PHARMACIST DISCHARGE MED REC CONSULT PRN (00:36)
[2025-10-18] MEDS ORDERED: Patient's HEIGHT &/or WEIGHT Needed STA (00:40)
[2025-10-18] MEDS: ASPIRIN 81 MG ECTAB PO STA (00:48)
[2025-10-18] MEDS ORDERED: DEXTROSE 50% 50 ML SYRINGE IV PRN (01:22)
[2025-10-18] MEDS ORDERED: GLUCOSE 40% GEL 15 GM TUBE PO PRN (01:22)
[2025-10-18] MEDS ORDERED: GLUCAGON FOR INJ 1 MG VIAL SQ PRN (01:22)
[2025-10-18] MEDS ORDERED: CARBOHYDRATES FOR HYPOGLYCEMIA PO PRN (01:22)
[2025-10-18] MEDS ORDERED: GLUCOSE 10 TAB/TUBE PO PRN (01:22)
[2025-10-18] MEDS: INSULIN ASPART PER UNIT CHARGE SC SCH (01:32)
[2025-10-18] MEDS: LORazepam 0.5 MG TAB PO PRN (01:51)
--- NOTE | 2025-10-18 04:01 | Magnetic Resonance Report ---
EXAM: MR brain wo con CLINICAL HISTORY: LLe weakness TECHNIQUE: Multisequential and multiplanar images of the brain were submitted for review without contrast. COMPARISON: 10/07/2025 10:33:16 SKIRT TRIMMER . FINDINGS: Generalized parenchymal atrophy is appreciated. Scattered foci of increased T2/FLAIR signal abnormality are identified within the bilateral periventricular and subcortical white matter, and are most commonly associated with chronic small vessel ischemic disease. No focal parenchymal lesions are seen. No intracranial hemorrhage, mass effect, midline shift, extra-axial collection, or hydrocephalus is identified. Ventricles, sulci, and basal cisterns are symmetric and normal in size and configuration. Diffusion-weighted sequences show no evidence of acute ischemic infarction. Midline structures including the pituitary gland, corpus callosum, pineal region, and brainstem are unremarkable. The craniovertebral junction is within normal limits. No calvarial abnormalities are identified. The paranasal sinuses and mastoid air cells are clear. Orbital structures are unremarkable. Appropriate flow voids are present in the visualized intracranial vessels. IMPRESSION: 1. No acute ischemia, space occupying mass, or other acute intracranial pathology is demonstrated. 2. Chronic small vessel ischemic disease.-stable. 3. Diffuse cerebral atrophy.-stable. No other new interval abnormality since prior study. Electronically signed by Patrick Goodwin 10-18-2025 04:00 AM
--- NOTE | 2025-10-18 04:08 | Magnetic Resonance Report ---
EXAM: MR angio head wo con CLINICAL HISTORY: LLE weakness TECHNIQUE: 3-D [id number] imaging of the intracranial circulation was performed without intravenous contrast. COMPARISON: 10/07/2025 10:22:05 INTENSIVE CARE MEDICINE SPECIALIST FINDINGS: There is good opacification of the distal portions of the internal carotid arteries which appear widely patent. There is good opacification of the anterior and middle cerebral artery distributions bilaterally. There is no MRA evidence of intracranial aneurysm or stenosis within the resolution limits of the study. Limited evaluation of the posterior circulation demonstrates patency of the distal vertebral arteries and the basilar artery with visualization of the posterior cerebral arteries bilaterally. IMPRESSION: 1. Essentially unremarkable intracranial MRA No other new interval abnormality since prior study. Electronically signed by Patrick Goodwin 10-18-2025 04:06 AM
[2025-10-18] MEDS: LEVOTHYROXINE SODIUM 50 MCG TABLET PO SCH (05:40)
[2025-10-18 06:30] LABS: Hematocrit (blood only) 36.5 % (37.0-47.0); Hemoglobin 12.4 g/dL (12.0-16.0); Immature Granulocytes # (auto) 0.02 K/uL (0.01-0.20); Immature Granulocytes % (auto) 0.3 %; Mean Corpuscular Hemoglobin 31.2 pg (25.0-34.0); Mean Corpuscular Volume 91.7 fL (80.0-100.0); Platelet Count 333 K/uL (130-400); RDW Standard Deviation 46.3 fL (36.4-46.3); Red Blood Count 3.98 M/uL (4.20-5.40); White Blood Count 6.14 K/ul (4.8-10.8)
[2025-10-18 06:55] LABS: Anion Gap 6.0 (3-11); Blood Urea Nitrogen 18.0 mg/dl (6-23); Calcium 9.0 mg/dl (8.6-10.3); Carbon Dioxide 30.0 mmol/L (21-32); Chloride 104.0 mmol/L (98-107); Cholesterol 178.0 mg/dl (0-200); Creatinine Clr Calc Pharmacy 81.5 ml/min; Glucose 108.0 mg/dl (70-99(Fasting)); HDL Cholesterol 67.0 mg/dl; Potassium 4.0 mmol/L (3.5-5.1); Sodium 140.0 mmol/L (136-145); Triglycerides 76.0 mg/dl (0-150)
[2025-10-18] MEDS: busPIRone 5 MG TAB PO SCH (08:08)
[2025-10-18] MEDS: CYANOCOBALAMIN (B-12) 500 MCG TABLET PO SCH (08:08)
[2025-10-18] MEDS: CITALOPRAM 40 MG TAB PO SCH (08:08)
[2025-10-18] MEDS: CARBIDOPA/LEVODOPA 25/100MG TAB PO SCH (08:08)
[2025-10-18] MEDS: ENOXAPARIN INJ 40 MG/0.4 ML SYR SQ SCH (08:09)
--- NOTE | 2025-10-18 11:40 | Ultrasound Report ---
ULTRASOUND OF THE CAROTID ARTERIES CLINICAL HISTORY: Strokelike symptoms. COMPARISON STUDY: No priors TECHNIQUE: Real-time, grayscale, and color Doppler sonography of the carotid arteries is performed. I mages are reviewed in the transverse and longitudinal planes. FINDINGS: The carotid arteries are patent bilaterally and demonstrate antegrade flow. There is minimal atherosc lerotic plaque seen in the carotid bulbs. Normal doppler arterial waveforms are seen throughout. [facility] measurements are listed below. Common carotid peak systolic velocity (cm/sec): RIGHT: 79 LEFT: 71 ICA proximal peak systolic velocity (cm/sec): RIGHT: 49 LEFT: 73 ICA mid peak systolic velocity (cm/sec): RIGHT: 66 LEFT: 48 ICA distal peak systolic velocity (cm/sec): RIGHT: 63 LEFT: 49 ICA/CC peak systolic ratio: RIGHT: 0.8 LEFT: 1.0 Antegrade flow was shown in the vertebral arteries. The external carotid arteries are patent. IMPRESSION: 1. There is no sonographic evidence of hemodynamically significant stenosis in the right or left bhardwaj tid arterial system. 2. Antegrade flow is shown in the vertebral arteries. ACT 112: Negative or not required by law. Electronically signed by: Dennys Barraza M.D. 10/18/2025 11:38 AM
--- NOTE | 2025-10-18 12:20 | XCELERA ---
[id number]
--- NOTE | 2025-10-18 13:36 | Hospitalist Progress Note ---
Date of Service October 18, 2025 Assessment & Plan (1) Left leg weakness: Plan: per admitting service notes with addendum: Assessment and plan below following discussion of case with ED provider and reviewing patient history/pertinent normal/abnormal diagnostic test results. LLE weakness/numbness, Acute CVA ruled out possible Parkinson, L knee arthritis contributing? -- Brain MRI: no acute CVA 1. No acute ischemia, space occupying mass, or other acute intracranial pathology is demonstrated. 2. Chronic small vessel ischemic disease.-stable. 3. Diffuse cerebral atrophy.-stable. No other new interval abnormality since prior study. -- Bran MRA: unrevealing -- awaiting Neurology service evaluation awaiting PT/OT eval Hypertension -- elevated secondary above -- improved continue usual Valsartan hyperlipidemia, on statin Rx aortic atherosclerosis as per records -- needs to be on ASA 81mg po daily already on Pravastatin Parkinson's disease, tremors better with recent Sinemet dose adjustment by PCP DM 2 on oral medications, well-controlled as of recent hemoglobin A1c of 6 last September 2025 hypothyroidism, patient currently euthyroid right breast cancer status post surgery/chemoradiation, in remission PT OT eval DVT prophylaxis. Lovenox subcu Full code plan of care discussed with patient and son Donte over the phone in detail and a t length all questions answered they are understanding, agreeable, comfortable with the plan of care Admission and Anticipated Discharge Date Admission Date: October 17, 2025 Subjective seen resting in chair, comfortable having breakfast states LLE weakness and numbness about the same as yesterday reports chronic L knee pain from severe arthritis denies back pain no other focal neuro symptoms no chest pain, dyspnea, palpitations, dizziness no other symptoms Review of Systems Review of Systems: all noted and negative except for above Physical Exam Physical Exam: General- oriented x 3, not in distress, speaks in sentences with no effort or accessory muscle use Eyes- anicteric Neck- no JVD Lungs- clear breath sounds bilaterally, no rales/wheezes Heart- normal rate, regular rhythm; no murmurs Abdomen- normal bowel sounds, nondistended, soft, nontender Extremities- no pretibial edema, no calf tenderness Neuro- alert, oriented x 3; motor strength 5/5 UE, 4/5 LE Skin- warm & dry Results & Data Results & Data Vital Signs (Past 12 Hours) Vital Signs Temp Pulse Pulse Resp BP Pulse Ox O2 Del Method 10/18/25 11:37 36.8 C 81 20 109/66 96 Room Air 10/18/25 07:34 36.9 C 87 16 147/78 H 97 Room Air 10/18/25 07:05 85 10/18/25 03:21 36.8 C 83 18 130/74 94 Room Air all noted and reviewed including below
--- NOTE | 2025-10-18 15:34 | Neurology Consultation ---
Date of Consultation October 18, 2025 Assessment & Plan (1) Left leg paresthesias: Recommend work up to include the following: MRI cervical and lumbar spine Echocardiogram as part of complete workup Continue frequent neurological assessments Obtain stat CT brain without contrast for any acute neurological decline Continue to monitor/control blood pressure & blood glucose Continue to monitor telemetry closely Recommend ZioPatch at DC if no evidence of arrhythmia during inpatient monitoring Continue to monitor renal and hepatic function, keep euvolemic Metabolic workup should include hgbA1c, fasting lipids Ok from neurology perspective for VTE prophylaxis PT/OT/SLT to eval and treat Continue follow up outpatient with neurology Telehealth Consultation Telehealth Information Telehealth Information: I performed this visit using a real-time telehealth connection between my location and the patients originating location ([facility]). After connecting through interactive tele-video, patient was identified by name and date of and/or wristband check.Patient (or authorized healthcare manufacturer's representative) was informed that this was a telemedicine visit and it was being conducted confidentially over secure lines. My office door was closed and no one else was present in the room with me.Patient (or authorized healthcare manufacturer's representative) provided consent to proceed with the visit, expressed an understanding of privacy and security of the telemedicine visit, and gave permission to have a hospital manufacturer's representative in the room in order to assist with the visit and to conduct portions of the visit, as needed. I informed the patient (or authorized healthcare manufacturer's representative) that I reviewed their record and presented the opportunity for them to ask any questions regarding the visit today. The patient agreed to participate. History of Present Illness Reason for Consultation: Leg weakness Requesting Physician: Dr. Zee Attending Physician: Good Zee MD History of Present Illness 65yo female with known hx of parkinsons disease as well as HTN, DM hyperlipidemia presented with ongoing LLE weakness. Has undergone imaging including CT brain without contrast, personally reviewed today, revealing no overt evidence of hemorrhage. CT angiographic studies of head and neck, also personally reviewed today, reveal no overt evidence of large vessel occlusion or significant/flow limiting stenosis. MRI brain depicts no overt evidence of acute ischemic stroke or acute intracranial abnormality. I have performed televideo consultation. She is awake and speaks fluently. She is able to answer questions appropriately, name objects on televideo monitor, repeat phrases and perform commands without deficit. Neurological exam reveals reported LLE weakness and sensory changes/feelings of "heaviness". Denies pain, appears in no apparent distress or discomfort. Allergies Allergy/AdvReac Type Severity Reaction Status Date / Time lisinopril Allergy Swelling Verified 10/17/25 23:18 of Lip/Tongue/Throat Home Medications Medication Instructions Recorded Confirmed Type citalopram 40 mg tablet 40 mg PO QAM 09/18/25 10/17/25 History latanoprost 0.005 % eye drops 1 drp OPB HS 09/18/25 10/17/25 History metformin 1,000 mg tablet 1,000 mg PO QAM 09/18/25 10/17/25 History polyethylene glycol 3350 17 gram 17 g PO DAILY PRN Constipation 09/18/25 10/17/25 History oral powder packet (Miralax) cyanocobalamin (vitamin B-12) 250 250 mcg PO Q2D #0 tabs 09/22/25 10/17/25 Rx mcg tablet estradiol 0.01% (0.1 mg/gram) 1 applic vaginal QAM 10/06/25 10/17/25 History vaginal cream buspirone 10 mg tablet 10 mg PO TID #90 tabs 10/09/25 10/17/25 Rx levothyroxine 50 mcg tablet 50 mcg PO DAILYBB #30 tabs 10/09/25 10/17/25 Rx (Synthroid) valsartan 80 mg tablet (Diovan) 160 mg (2 x 80 mg) PO QAM #30 tabs 10/09/25 10/17/25 Rx carbidopa 25 mg-levodopa 100 mg 2 tab PO TID@08,14,20 10/17/25 10/17/25 History tablet (Sinemet) pravastatin 40 mg tablet 40 mg PO DAILY 10/18/25 10/18/25 History trazodone 50 mg tablet 50 mg PO HS PRN Insomnia 10/18/25 10/18/25 History triamcinolone acetonide 0.1 % 1 applic topical BID PRN Skin 10/18/25 10/18/25 History topical cream Irritation Patient History Social History Smoking Status: Never smoker Second Hand Exposure: No; Do You Dip or Chew Tobacco: No; Hx Alcohol Use: No Hx Substance Use: No Preferred Language: Tajik Communication Ability: Effective Radioactive Waste Disposal Dispatcher Required: No Beliefs That Will Affect Care: None Current Living Situation: Family Current Living Situation Comment: son Donte Feels Safe at Home: Yes Assistive Devices: Cane Physical Exam Neurological Examination: Mental Status: Awake and alert. Oriented to person, place, and time. Fluency naming repetition and comprehension appear grossly intact. Affect remains appropriate. CN testing: I: Deferred II: Reports no changes in visual acuity III/IV/: No evidence of gaze preference, hippus, nystagmus or roving eye movements V: Facial sensation reportedly grossly intact to light touch bilaterally VII: Facial movements appear consistent with hypomimia VIII: Hearing appears grossly intact to loud voice bilaterally IX/X: Palate is unable to be accurately visualized XI: Shoulder shrug appears symmetric/ grossly intact bilaterally XII: Tongue protrudes midline without evidence of biting Motor exam: LLE weakness noted She reports LLE feels heavy Tone: Unable to accurately assess via telemedicine Sensory: Unable to accurately assess via telemedicine Coordination: Resting tremor noted Reflexes: Unable to accurately assess via telemedicine Gait: Deferred Results & Data Vital Signs (Past 12 Hours) Vital Signs Temp Pulse Pulse Resp BP Pulse Ox O2 Del Method 10/18/25 15:19 36.6 C 82 16 130/75 95 Room Air 10/18/25 11:37 36.8 C 81 20 109/66 96 Room Air 10/18/25 07:34 36.9 C 87 16 147/78 H 97 Room Air 10/18/25 07:05 85 Laboratory Results Abnormal lab results 10/17/25 10/17/25 10/18/25 Range/Units 23:56 Unknown 01:30 RBC 4.00 L (4.20-5.40) M/uL Hct 36.5 L (37.0-47.0) % RDW Std Deviation 46.5 H (36.4-46.3) fL [place] # (Auto) 0.63 H (0.11-0.59) K/uL Potassium 3.4 L (3.5-5.1) mmol/L BUN 24 H (6-23) mg/dl BUN/Creatinine Ratio 34.8 H (10-20) Glucose 143 H (70-99(Fasting)) mg/dl POC Glucose 118 H (70-99) mg/dl Urine Appearance Cloudy A (Clear) Urine Ketones Trace H (Negative) Ur Leukocyte Esterase Trace H (Negative) Urine WBC (Auto) 6-10 H (0-5) /hpf Urine RBC (Auto) 6-10 H (0-2) /hpf U Epithel Cells (Auto) 11-20 H (0-2) /hpf Urine Bacteria (Auto) 1+ H (None Seen) 10/18/25 10/18/25 10/18/25 Range/Units 05:59 08:16 11:53 RBC 3.98 L (4.20-5.40) M/uL Hct 36.5 L (37.0-47.0) % RDW Std Deviation (36.4-46.3) fL [place] # (Auto) (0.11-0.59) K/uL Potassium (3.5-5.1) mmol/L BUN (6-23) mg/dl BUN/Creatinine Ratio 30.0 H (10-20) Glucose 108 H (70-99(Fasting)) mg/dl POC Glucose 120 H 159 H (70-99) mg/dl Urine Appearance (Clear) Urine Ketones (Negative) Ur Leukocyte Esterase (Negative) Urine WBC (Auto) (0-5) /hpf Urine RBC (Auto) (0-2) /hpf U Epithel Cells (Auto) (0-2) /hpf Urine Bacteria (Auto) (None Seen) Diagnostic Findings Head CT 10/17/25 22:12 Exam(s): CT HEAD Without Contrast EXAM: CT Head Without Intravenous Contrast CLINICAL HISTORY: Reason for exam: left leg weakness. OTHER: Other Notes: left leg weakness TECHNIQUE: Axial computed tomography images of the head/brain without intravenous contrast. CTDI is 38.17 mGy and DLP is 625.8 mGy-cm. Automated exposure control was utilized for the study. A dose lowering technique was utilized adhering to the principles of ALARA. Mild motion artifact. COMPARISON: Head CT and MRI brain 10/07/2025. FINDINGS: Brain: No mass, edema, mass effect or acute infarct. No acute hemorrhage. Mild atrophy and chronic, nonspecific white matter disease, stable. Ventricles: No hydrocephalus or midline shift. Bones/joints: No skull fracture. Soft tissues: No scalp hematoma. Visualized Sinuses: Clear. Mastoid air cells: No mastoid effusion. IMPRESSION: 1. Stable age-related findings. 2. No acute infarct, bleed, acute intracranial abnormality, or interval change. Electronically signed by: Carlee Miranda M.D. 10/17/25 23:09 PM Brain MRI 10/18/25 00:36 EXAM: MR brain wo con CLINICAL HISTORY: LLe weakness TECHNIQUE: Multisequential and multiplanar images of the brain were submitted for review without contrast. COMPARISON: 10/07/2025 10:33:16 [facility] . FINDINGS: Generalized parenchymal atrophy is appreciated. Scattered foci of increased T2/FLAIR signal abnormality are identified within the bilateral periventricular and subcortical white matter, and are most commonly associated with chronic small vessel ischemic disease. No focal parenchymal lesions are seen. No intracranial hemorrhage, mass effect, midline shift, extra-axial collection, or hydrocephalus is identified. Ventricles, sulci, and basal cisterns are symmetric and normal in size and configuration. Diffusion-weighted sequences show no evidence of acute ischemic infarction. Midline structures including the pituitary gland, corpus callosum, pineal region, and brainstem are unremarkable. The craniovertebral junction is within normal limits. No calvarial abnormalities are identified. The paranasal sinuses and mastoid air cells are clear. Orbital structures are unremarkable. Appropriate flow voids are present in the visualized intracranial vessels. IMPRESSION: 1. No acute ischemia, space occupying mass, or other acute intracranial pathology is demonstrated. 2. Chronic small vessel ischemic disease.-stable. 3. Diffuse cerebral atrophy.-stable. No other new interval abnormality since prior study. Electronically signed by Patrick Goodwin 10-18-2025 04:00 AM Head MRA 10/18/25 00:37 EXAM: MR angio head wo con CLINICAL HISTORY: LLE weakness TECHNIQUE: 3-D [id number] imaging of the intracranial circulation was performed without intravenous contrast. COMPARISON: 10/07/2025 10:22:05 [facility]ER FINDINGS: There is good opacification of the distal portions of the internal carotid arteries which appear widely patent. There is good opacification of the anterior and middle cerebral artery distributions bilaterally. There is no MRA evidence of intracranial aneurysm or stenosis within the resolution limits of the study. Limited evaluation of the posterior circulation demonstrates patency of the distal vertebral arteries and the basilar artery with visualization of the posterior cerebral arteries bilaterally. IMPRESSION: 1. Essentially unremarkable intracranial MRA No other new interval abnormality since prior study. Electronically signed by Patrick Goodwin 10-18-2025 04:06 AM Carotid Doppler Study 10/18/25 03:40 ULTRASOUND OF THE CAROTID ARTERIES CLINICAL HISTORY: Strokelike symptoms. COMPARISON STUDY: No priors TECHNIQUE: Real-time, grayscale, and color Doppler sonography of the carotid arteries is performed. Images are reviewed in the transverse and longitudinal planes. FINDINGS: The carotid arteries are patent bilaterally and demonstrate antegrade flow. There is minimal atherosclerotic plaque seen in the carotid bulbs. Normal doppler arterial waveforms are seen throughout. Velocity measurements are listed below. Common carotid peak systolic velocity (cm/sec): RIGHT: 79 LEFT: 71 ICA proximal peak systolic velocity (cm/sec): RIGHT: 49 LEFT: 73 ICA mid peak systolic velocity (cm/sec): RIGHT: 66 LEFT: 48 ICA distal peak systolic velocity (cm/sec): RIGHT: 63 LEFT: 49 ICA/CC peak systolic ratio: RIGHT: 0.8 LEFT: 1.0 Antegrade flow was shown in the vertebral arteries. The external carotid ar teries are patent. IMPRESSION: 1. There is no sonographic evidence of hemodynamically significant stenosis in the right or left carotid arterial system. 2. Antegrade flow is shown in the vertebral arteries. ACT 112: Negative or not required by law. Electronically signed by: Dennys Barraza M.D. 10/18/2025 11:38 AM Medications Administered Home Medications Medication Instructions Recorded Confirmed Last Taken citalopram 40 mg tablet 40 mg PO QAM 09/18/25 10/17/25 10/06/25 latanoprost 0.005 % eye drops 1 drp OPB HS 09/18/25 10/17/25 10/05/25 needs tonights dose metformin 1,000 mg tablet 1,000 mg PO QAM 09/18/25 10/17/25 10/06/25 polyethylene glycol 3350 17 gram 17 g PO DAILY PRN Constipation 09/18/25 10/17/25 Unknown oral powder packet (Miralax) cyanocobalamin (vitamin B-12) 250 250 mcg PO Q2D #0 tabs 09/22/25 10/17/25 10/06/25 mcg tablet estradiol 0.01% (0.1 mg/gram) 1 applic vaginal QAM 10/06/25 10/17/25 10/06/25 vaginal cream buspirone 10 mg tablet 10 mg PO TID #90 tabs 10/09/25 10/17/25 Unknown levothyroxine 50 mcg tablet 50 mcg PO DAILYBB #30 tabs 10/09/25 10/17/25 Unknown (Synthroid) valsartan 80 mg tablet (Diovan) 160 mg (2 x 80 mg) PO QAM #30 tabs 10/09/25 10/17/25 Unknown carbidopa 25 mg-levodopa 100 mg 2 tab PO TID@08,14,20 10/17/25 10/17/25 Unknown tablet (Sinemet) pravastatin 40 mg tablet 40 mg PO DAILY 10/18/25 10/18/25 Unknown trazodone 50 mg tablet 50 mg PO HS PRN Insomnia 10/18/25 10/18/25 Unknown triamcinolone acetonide 0.1 % 1 applic topical BID PRN Skin 10/18/25 10/18/25 Unknown topical cream Irritation Active Medications Generic Name Dose Route Start Last Admin Trade Name Davidq PRN Reason Stop Dose Admin Buspirone HCl 10 mg 10/18/25 09:00 10/18/25 14:47 Buspirone 5 Mg Tab PO 11/17/25 08:59 10 mg TID MEGAN Administration Carbidopa/Levodopa 2 tab 10/18/25 08:00 10/18/25 14:47 Carbidopa/Levodopa 25/100mg Tab PO 11/17/25 07:59 2 tab TID@08,14,20 MEGAN Administration Citalopram Hydrobromide 40 mg 10/18/25 09:00 10/18/25 09:51 Citalopram 40 Mg Tab PO 11/17/25 08:59 Not Given QAM MEGAN Cyanocobalamin 250 mcg 10/18/25 09:00 10/18/25 08:08 Cyanocobalamin (B-12) 500 Mcg Tablet PO 11/17/25 08:59 250 mcg Q2D@0900 MEGAN Administration Enoxaparin Sodium 40 mg 10/18/25 09:00 10/18/25 08:09 Enoxaparin Inj 40 Mg/0.4 Ml Syr SQ 11/17/25 08:59 40 mg QAM MEGAN Administration Insulin Aspart 0 units 10/18/25 01:22 10/18/25 14:08 Insulin Aspart Per Unit Charge SC 11/17/25 01:21 Not Given ACHS [facility] Levothyroxine Sodium 50 mcg 10/18/25 06:30 10/18/25 05:40 Levothyroxine Sodium 50 Mcg Tablet PO 11/17/25 06:29 50 mcg DAILYBB MEGAN Administration Lorazepam 0.5 mg 10/18/25 01:39 10/18/25 01:51 Lorazepam 0.5 Mg Tab PO 11/17/25 01:38 0.5 mg TID PRN Administration Anxiety
--- NOTE | 2025-10-18 18:49 | Electrocardiogram Report ---
Test Reason : Blood Pressure : */* mmHG Vent. Rate : 86 BPM Atrial Rate : 86 BPM P-R Int : 142 ms QRS Dur : 84 ms QT Int : 358 ms P-R-T Axes : 49 37 38 degrees QTcB Int : 428 ms Normal sinus rhythm Normal ECG When compared with ECG of 06-Oct-2025 21:47, No significant change was found Confirmed by Kingsley Styles ([id number]) on 10/18/2025 6:49:39 PM Referred By: REFERRED SELF Confirmed By: Kingsley Styles
[2025-10-18] MEDS: PRAVASTATIN SOD 40 MG TAB PO SCH (20:14)
[2025-10-18] MEDS: LATANOPROST 0.005% OP SOLN 2.5 ML BTL OPB SCH (20:28)
--- NOTE | 2025-10-18 22:40 | Magnetic Resonance Report ---
Exam(s): MRI C SPINE EXAM: MR Cervical Spine Without Intravenous Contrast CLINICAL HISTORY: Reason for exam: Left lower ext weakness, numbness. TECHNIQUE: Magnetic resonance images of the cervical spine without intravenous contrast in multiple planes. COMPARISON: No relevant prior studies available. FINDINGS: This study is limited secondary to lack of axial imaging and motion artifact. Vertebrae: There are 7 cervical type vertebral bodies with a mild generalized curved to the left and straightening normal cervical lordosis. There is mild grade 1 anterolisthesis of C3 on C4 measuring 2 mm. Otherwise, there is normal vertebral body height and alignment. The bone marrow signal is heterogeneous with reactive endplate changes. No acute fracture. There is mild to advanced facet arthropathy with mild to moderate synovitis, most significant at C5-6. Spinal cord: The cord is normal size, shape and signal characteristics. The craniocervical junction is normal without evidence of Chiari malformation. Soft tissues: The cervical flow voids are intact. DISCS/SPINAL CANAL/NEURAL FORAMINA: C2-C3: The intervertebral disc is normal. C3-C4: There is mild disc degeneration with annular disc bulge flattening the ventral thecal sac. C4-C5: There is mild disc degeneration with annular disc bulge flattening the ventral thecal sac. C5-C6: Advanced disc degeneration with annular disc bulge flattening the ventral thecal sac. C6-C7: Moderate disc degeneration with annular disc bulge flattening the ventral thecal sac. C7-T1: The intervertebral disc is normal. IMPRESSION: 1. Advanced disc degeneration at C5-6, moderate disc degeneration at C6- 7, and mild disc degeneration at C3-4 and C4-5 with annular disc bulging flattening the ventral thecal sac. 2. There is no spinal canal stenosis. 3. The neural foramina are poorly visualized secondary to motion artifact. 4. There is mild to advanced facet arthropathy with mild to moderate synovitis, most significant at C5-6. 5. No evidence of fracture, infection, tumor or myelopathy. Electronically signed by: Rosie Malone MD 10/18/25 22:39 PM
[2025-10-19 03:57] VITALS: O2SAT 92
[2025-10-19 07:15] LABS: Hematocrit (blood only) 37.8 % (37.0-47.0); Hemoglobin 12.8 g/dL (12.0-16.0); Immature Granulocytes # (auto) 0.01 K/uL (0.01-0.20); Immature Granulocytes % (auto) 0.2 %; Mean Corpuscular Hemoglobin 30.7 pg (25.0-34.0); Mean Corpuscular Volume 90.6 fL (80.0-100.0); Platelet Count 339 K/uL (130-400); RDW Standard Deviation 45.2 fL (36.4-46.3); Red Blood Count 4.17 M/uL (4.20-5.40); White Blood Count 5.84 K/ul (4.8-10.8)
[2025-10-19 07:54] LABS: Anion Gap 8.0 (3-11); Blood Urea Nitrogen 17.0 mg/dl (6-23); Calcium 9.0 mg/dl (8.6-10.3); Carbon Dioxide 29.0 mmol/L (21-32); Chloride 103.0 mmol/L (98-107); Creatinine Clr Calc Pharmacy 82.9 ml/min; Glucose 116.0 mg/dl (70-99(Fasting)); Potassium 3.8 mmol/L (3.5-5.1); Sodium 140.0 mmol/L (136-145)
[2025-10-19] MEDS: ASPIRIN 81 MG ECTAB PO SCH (08:00)
[2025-10-19] MEDS: STROKE PATIENT DISCHARGE STA (08:00)
[2025-10-19 08:08] VITALS: BP 147/85; PULSE 99; RESP 18; TEMP 98.6
[2025-10-19] MEDS: VALSARTAN 80 MG TAB PO SCH (08:25)
--- NOTE | 2025-10-19 15:00 | Hospitalist Progress Note ---
Date of Service October 19, 2025 Assessment & Plan (1) Left leg weakness: Plan: per admitting service notes with addendum: Assessment and plan below following discussion of case with ED provider and reviewing patient history/pertinent normal/abnormal diagnostic test results. LLE weakness/numbness, Acute CVA ruled out possible Parkinson, L knee arthritis contributing? -- Brain MRI: no acute CVA 1. No acute ischemia, space occupying mass, or other acute intracranial pathology is demonstrated. 2. Chronic small vessel ischemic disease.-stable. 3. Diffuse cerebral atrophy.-stable. No other new interval abnormality since prior study. -- Bran MRA: unrevealing -- Neurology service evaluation, recommend MRI of the cervical and lumbar spine MRI Cervical spine: 1. Advanced disc degeneration at C5-6, moderate disc degeneration at C6- 7, and mild disc degeneration at C3-4 and C4-5 with annular disc bulging flattening the ventral thecal sac. 2. There is no spinal canal stenosis. 3. The neural foramina are poorly visualized secondary to motion artifact. 4. There is mild to advanced facet arthropathy with mild to moderate synovitis, most significant at C5-6. 5. No evidence of fracture, infection, tumor or myelopathy. denies cervical pain or arm pain/numbness further follow up as outpatient MRI [facility] spine: was unable to be performed due to severe anxiety consider CT lumbar spine as outpatient -- symptoms of L lower extremity numbness and weakness improved -- further management of Parkinson disease and L knee arthritis as outpatient Hypertension -- elevated secondary above -- improved continue usual Valsartan monitor as outpatient Hyperlipidemia Aortic atherosclerosis per CT chest August 2025 -- needs to be on ASA 81mg po daily, please discuss with patient on PCP ff up already on Pravastatin Parkinson's disease, tremors better with recent Sinemet dose adjustment by PCP DM 2 on oral medications, well-controlled as of recent hemoglobin A1c of 6 last September 2025 hypothyroidism, patient currently euthyroid right breast cancer status post surgery/chemoradiation, in remission PT OT eval: home with supervision DVT prophylaxis. Lovenox subcu given Full code PCP ff up in 1 week plan of care discussed with patient and son in detail all questions answered they are understanding, agreeable, comfortable with the plan of care Admission and Anticipated Discharge Date Admission Date: October 18, 2025 Subjective seen resting in chair, comfortable smiling states she feels improved overall less L lower leg numbness, weakness able to ambulate to the bathroom no new focal neurologic symptoms no chest pain, dyspnea, palpitations, dizziness no other new symptoms Review of Systems Review of Systems: all noted and negative except for above Physical Exam Physical Exam: General- oriented x 3, not in distress, speaks in sentences with no effort or accessory muscle use Eyes- anicteric Neck- no JVD Lungs- clear BS BL Heart- normal rate, regular rhythm; no murmurs Abdomen- normal bowel sounds, nondistended, soft, no tenderness Extremities- no pretibial edema, no calf tenderness Neuro- alert, oriented x 3; no new gross focal neurologic deficits Skin- warm & dry Results & Data Results & Data Vital Signs (Past 12 Hours) Vital Signs Temp Pulse Pulse Resp BP Pulse Ox O2 Del Method 10/19/25 08:08 37.0 C 99 H 18 147/85 H 92 Room Air 10/19/25 06:45 88 10/19/25 03:56 36.6 C 96 H 20 155/79 H 92 Room Air
--- NOTE | 2025-10-19 15:06 | Discharge Summary ---
Discharge Summary Date of Service October 19, 2025 Principal Dx & Hospital Course #1 = Principal Diagnosis (1) Left leg weakness: per admitting service notes with addendum: Assessment and plan below following discussion of case with ED provider and reviewing patient history/pertinent normal/abnormal diagnostic test results. LLE weakness/numbness, Acute CVA ruled out possible Parkinson, L knee arthritis contributing? -- Brain MRI: no acute CVA 1. No acute ischemia, space occupying mass, or other acute intracranial pathology is demonstrated. 2. Chronic small vessel ischemic disease.-stable. 3. Diffuse cerebral atrophy.-stable. No other new interval abnormality since prior study. -- Bran MRA: unrevealing -- Neurology service evaluation, recommend MRI of the cervical and lumbar spine MRI Cervical spine: 1. Advanced disc degeneration at C5-6, moderate disc degeneration at C6- 7, and mild disc degeneration at C3-4 and C4-5 with annular disc bulging flattening the ventral thecal sac. 2. There is no spinal canal stenosis. 3. The neural foramina are poorly visualized secondary to motion artifact. 4. There is mild to advanced facet arthropathy with mild to moderate synovitis, most significant at C5-6. 5. No evidence of fracture, infection, tumor or myelopathy. denies cervical pain or arm pain/numbness further follow up as outpatient MRI [facility] spine: was unable to be performed due to severe anxiety consider CT lumbar spine as outpatient -- symptoms of L lower extremity numbness and weakness improved -- further management of Parkinson disease and L knee arthritis as outpatient Hypertension -- elevated secondary above -- improved continue usual Valsartan monitor as outpatient Hyperlipidemia Aortic atherosclerosis per CT chest August 2025 -- needs to be on ASA 81mg po daily, please discuss with patient on PCP ff up already on Pravastatin Parkinson's disease, tremors better with recent Sinemet dose adjustment by PCP DM 2 on oral medications, well-controlled as of recent hemoglobin A1c of 6 last September 2025 hypothyroidism, patient currently euthyroid right breast cancer status post surgery/chemoradiation, in remission PT OT eval: home with supervision DVT prophylaxis. Lovenox subcu given Full code PCP ff up in 1 week plan of care discussed with patient and son in detail all questions answered they are understanding, agreeable, comfortable with the plan of care Notes For Next Care Provider consider ASA 81mg po daily - please see assessment and plan Medication Changes From Visit none Admission HPI Per Admitting Provider History obtained from patient, family, and records. Medical history significant for hypertension, hyperlipidemia, aortic atherosclerosis as per records, Parkinson's disease, neurogenic bladder as per records, DM 2 on oral medications, hypothyroidism, right breast cancer status post surgery/chemoradiation, bilateral knee osteoarthritis, glaucoma, mood disorder. Monthly admissions since August,. Recent confinement October 06 to 2024 for weakness, transient blurred vision in the setting of Parkinson's disease. Depression felt to be a component of weakness as per Neurology note. Specialist recommended discontinuing entacapone. BuSpar increased at time of discharge. Losartan switched to valsartan for better BP control. Synthroid dose increased at time of discharge due to elevated TSH. Progressive left lower extremity numbness later followed by weakness at time of discharge from hospital. Sinemet dose increased on follow-up visit with PCP yesterday due to increased tremors. Left lower extremity symptoms attributed to medication side effect according to PCP as per patient/family account. Patient brought to ER for evaluation due to worsening left leg weakness/numbness. Denies headache, back pain complaints. No incontinence. SBP 180s upon arrival at the ER. 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 Admission Exam Per Admitting Provider GENERAL: Comfortable, no respiratory distress SKIN: Normal color, warm HEENT: Expressionless face, pink palpebral conjunctivae, no ptosis, moist buccal mucosa NECK : Supple, no tenderness CHEST : CTA, no tenderness HEART : RRR, no obvious murmurs ABDOMEN: Some distention, nontender EXTREMITIES : No LE swelling/tenderness, palpable pulses, no other conspicuous deformities noted NEUROLOGIC : Coherent, no facial asymmetry, rest tremors, MMTS BUE 4/5, BLE 3/5, gait and stance not assessed Discharge Exam General- oriented x 3, not in distress, speaks in sentences with no effort or accessory muscle use Eyes- anicteric Neck- no JVD Lungs- clear BS BL Heart- normal rate, regular rhythm; no murmurs Abdomen- normal bowel sounds, nondistended, soft, no tenderness Extremities- no pretibial edema, no calf tenderness Neuro- alert, oriented x 3; no new gross focal neurologic deficits Skin- warm & dry Updated Medication List Medication Instructions Recorded Confirmed Type citalopram 40 mg tablet 40 mg PO QAM 09/18/25 10/17/25 History latanoprost 0.005 % eye drops 1 drp OPB HS 09/18/25 10/17/25 History metformin 1,000 mg tablet 1,000 mg PO QAM 09/18/25 10/17/25 History polyethylene glycol 3350 17 gram 17 g PO DAILY PRN Constipation 09/18/25 10/17/25 History oral powder packet (Miralax) cyanocobalamin (vitamin B-12) 250 250 mcg PO Q2D #0 tabs 09/22/25 10/17/25 Rx mcg tablet estradiol 0.01% (0.1 mg/gram) 1 applic vaginal QAM 10/06/25 10/17/25 History vaginal cream buspirone 10 mg tablet 10 mg PO TID #90 tabs 10/09/25 10/17/25 Rx levothyroxine 50 mcg tablet 50 mcg PO DAILYBB #30 tabs 10/09/25 10/17/25 Rx (Synthroid) valsartan 80 mg tablet (Diovan) 160 mg (2 x 80 mg) PO QAM #30 tabs 10/09/25 10/17/25 Rx carbidopa 25 mg-levodopa 100 mg 2 tab PO TID@08,14,20 10/17/25 10/17/25 History tablet (Sinemet) pravastatin 40 mg tablet 40 mg PO DAILY 10/18/25 10/18/25 History trazodone 50 mg tablet 50 mg PO HS PRN Insomnia 10/18/25 10/18/25 History triamcinolone acetonide 0.1 % 1 applic topical BID PRN Skin 10/18/25 10/18/25 History topical cream Irritation Hospital Stay Data Consultations 10/17/25 23:24 ED Decision to Admit Stat 10/18/25 00:37 Consult Neurology Routine Diagnostic Imagining Performed Laboratory Results WBC 5.84 K/ul (4.8-10.8) 10/19/25 06:08 RBC 4.17 M/uL (4.20-5.40) L 10/19/25 06:08 Hgb 12.8 g/dL (12.0-16.0) 10/19/25 06:08 Hct 37.8 % (37.0-47.0) 10/19/25 06:08 MCV 90.6 fL (80.0-100.0) 10/19/25 06:08 MCH 30.7 pg (25.0-34.0) 10/19/25 06:08 MCHC 33.9 g/dL (32.0-36.0) 10/19/25 06:08 RDW Std Deviation 45.2 fL (36.4-46.3) 10/19/25 06:08 RDW Coeff of Gely 13.8 % (11.5-14.5) 10/19/25 06:08 Plt Count 339 K/uL (130-400) 10/19/25 06:08 MPV 9.7 fL (9.4-12.4) 10/19/25 06:08 Immature Gran % (Auto) 0.2 % 10/19/25 06:08 Neut % (Auto) 63.9 % 10/19/25 06:08 Lymph % (Auto) 26.4 % 10/19/25 06:08 [place] % (Auto) 6.8 % 10/19/25 06:08 Eos % (Auto) 1.7 % 10/19/25 06:08 Baso % (Auto) 1.0 % 10/19/25 06:08 Neut # (Auto) 3.73 K/uL (1.40-6.50) 10/19/25 06:08 Lymph # (Auto) 1.54 K/uL (1.20-3.40) 10/19/25 06:08 [place] # (Auto) 0.40 K/uL (0.11-0.59) 10/19/25 06:08 Eos # (Auto) 0.10 K/uL (0.00-0.50) 10/19/25 06:08 Baso # (Auto) 0.06 K/uL (0.00-0.20) 10/19/25 06:08 Immature Gran # (Auto) 0.01 K/uL (0.01-0.20) 10/19/25 06:08 Sodium 140 mmol/L (136-145) 10/19/25 06:08 Potassium 3.8 mmol/L (3.5-5.1) 10/19/25 06:08 Chloride 103 mmol/L (98-107) 10/19/25 06:08 Carbon Dioxide 29 mmol/L (21-32) 10/19/25 06:08 Anion Gap 8 (3-11) 10/19/25 06:08 BUN 17 mg/dl (6-23) 10/19/25 06:08 Creatinine 0.59 mg/dl (0.6-1.2) L 10/19/25 06:08 Est Cr Clr Drug Dosing 82.9 ml/min 10/19/25 06:08 eGFR 98.72 10/19/25 06:08 BUN/Creatinine Ratio 28.8 (10-20) H 10/19/25 06:08 Glucose 116 mg/dl (70-99(Fasting)) H 10/19/25 06:08 POC Glucose 165 mg/dl (70-99) H 10/19/25 08:19 Calcium 9.0 mg/dl (8.6-10.3) 10/19/25 06:08 Magnesium 2.2 mg/dl (1.7-2.4) 10/17/25 Unknown Troponin I High Sens 5.9 pg/ml (0-14) 10/17/25 Unknown Triglycerides 76 mg/dl (0-150) 10/18/25 05:59 Cholesterol 178 mg/dl (0-200) 10/18/25 05:59 LDL Cholesterol, Calc 96 mg/dl 10/18/25 05:59 VLDL Cholesterol, Calc 15 mg/dl (0-30) 10/18/25 05:59 HDL Cholesterol 67 mg/dl 10/18/25 05:59 Cholesterol/HDL Ratio 2.7 (0-5) 10/18/25 05:59 TSH 1.431 uIu/ml (0.300-4.500) 10/17/25 Unknown Urine Color Yellow 10/17/25 23:56 Urine Appearance Cloudy (Clear) A 10/17/25 23:56 Urine pH 6.5 (4.5-7.5) 10/17/25 23:56 Ur Specific Ranger 1.024 (1.000-1.030) 10/17/25 23:56 Urine Protein Negative (Negative) 10/17/25 23:56 Urine Glucose (UA) Negative (Negative) 10/17/25 23:56 Urine Ketones Trace (Negative) H 10/17/25 23:56 Urine Blood Negative (Negative) 10/17/25 23:56 Urine Nitrite Negative (Negative) 10/17/25 23:56 Urine Bilirubin Negative (Negative) 10/17/25 23:56 Urine Urobilinogen Negative (Negative) 10/17/25 23:56 Ur Leukocyte Esterase Trace (Negative) H 10/17/25 23:56 Urine WBC (Auto) 6-10 /hpf (0-5) H 10/17/25 23:56 Urine RBC (Auto) 6-10 /hpf (0-2) H 10/17/25 23:56 U Hyaline Cast (Auto) 0-2 /lpf (0-2) 10/17/25 23:56 U Epithel Cells (Auto) 11-20 /hpf (0-2) H 10/17/25 23:56 Urine Bacteria (Auto) 1+ (None Seen) H 10/17/25 23:56 Urine Comment 10/17/25 23:[address] 10/17/25 22:12 Exam(s): CT HEAD Without Contrast EXAM: CT Head Without Intravenous Contrast CLINICAL HISTORY: Reason for exam: left leg weakness. OTHER: Other Notes: left leg weakness TECHNIQUE: Axial computed tomography images of the head/brain without intravenous contrast. CTDI is 38.17 mGy and DLP is 625.8 mGy-cm. Automated exposure control was utilized for the study. A dose lowering technique was utilized adhering to the principles of ALARA. Mild motion artifact. COMPARISON: Head CT and MRI brain 10/07/2025. FINDINGS: Brain: No mass, edema, mass effect or acute infarct. No acute hemorrhage. Mild atrophy and chronic, nonspecific white matter disease, stable. Ventricles: No hydrocephalus or midline shift. Bones/joints: No skull fracture. Soft tissues: No scalp hematoma. Visualized Sinuses: Clear. Mastoid air cells: No mastoid effusion. IMPRESSION: 1. Stable age-related findings. 2. No acute infarct, bleed, acute intracranial abnormality, or interval change. Electronically signed by: Carlee Miranda M.D. 10/17/25 23:09 PM Brain MRI 10/18/25 00:36 EXAM: MR brain wo con CLINICAL HISTORY: LLe weakness TECHNIQUE: Multisequential and multiplanar images of the brain were submitted for review without contrast. COMPARISON: 10/07/2025 10:33:16 CAFETERIA ATTENDANT . FINDINGS: Generalized parenchymal atrophy is appreciated. Scattered foci of increased T2/FLAIR signal abnormality are identified within the bilateral periventricular and subcortical white matter, and are most commonly associated with chronic small vessel ischemic disease. No focal parenchymal lesions are seen. No intracranial hemorrhage, mass effect, midline shift, extra-axial collection, or hydrocephalus is identified. Ventricles, sulci, and basal cisterns are symmetric and normal in size and configuration. Diffusion-weighted sequences show no evidence of acute ischemic infarction. Midline structures including the pituitary gland, corpus callosum, pineal region, and brainstem are unremarkable. The craniovertebral junction is within normal limits. No calvarial abnormalities are identified. The paranasal sinuses and mastoid air cells are clear. Orbital structures are unremarkable. Appropriate flow voids are present in the visualized intracranial vessels. IMPRESSION: 1. No acute ischemia, space occupying mass, or other acute intracranial pathology is demonstrated. 2. Chronic small vessel ischemic disease.-stable. 3. Diffuse cerebral atrophy.-stable. No other new interval abnormality since prior study. Electronically signed by Patrick Goodwin 10-18-2025 04:00 AM Head MRA 10/18/25 00:37 EXAM: MR angio head wo con CLINICAL HISTORY: LLE weakness TECHNIQUE: 3-D [id number] imaging of the intracranial circulation was performed without intravenous contrast. COMPARISON: 10/07/2025 10:22:05 CAFETERIA ATTENDANT FINDINGS: There is good opacification of the distal portions of the internal carotid arteries which appear widely patent. There is good opacification of the anterior and middle cerebral artery distributions bilaterally. There is no MRA evidence of intracranial aneurysm or stenosis within the resolution limits of the study. Limited evaluation of the posterior circulation demonstrates patency of the distal vertebral arteries and the basilar artery with visualization of the posterior cerebral arteries bilaterally. IMPRESSION: 1. Essentially unremarkable intracranial MRA No other new interval abnormality since prior study. Electronically signed by Patrick Goodwin 10-18-2025 04:06 AM Carotid Doppler Study 10/18/25 03:40 ULTRASOUND OF THE CAROTID ARTERIES CLINICAL HISTORY: Strokelike symptoms. COMPARISON STUDY: No priors TECHNIQUE: Real-time, grayscale, and color Doppler sonography of the carotid arteries is performed. Images are reviewed in the transverse and longitudinal planes. FINDINGS: The carotid arteries are patent bilaterally and demonstrate antegrade flow. There is minimal atherosclerotic plaque seen in the carotid bulbs. Normal doppler arterial waveforms are seen throughout. Velocity measurements are listed below. Common carotid peak systolic velocity (cm/sec): RIGHT: 79 LEFT: 71 ICA proximal peak systolic velocity (cm/sec): RIGHT: 49 LEFT: 73 ICA mid peak systolic velocity (cm/sec): RIGHT: 66 LEFT: 48 ICA distal peak systolic velocity (cm/sec): RIGHT: 63 LEFT: 49 ICA/CC peak systolic ratio: RIGHT: 0.8 LEFT: 1.0 Antegrade flow was shown in the vertebral arteries. The external carotid arteries are patent. IMPRESSION: 1. There is no sonographic evidence of hemodynamically significant stenosis in the right or left carotid arterial system. 2. Antegrade flow is shown in the vertebral arteries. ACT 112: Negative or not required by law. Electronically signed by: Dennys Barraza M.D. 10/18/2025 11:38 AM Cervical Spine MRI 10/18/25 15:27 Exam(s): MRI C SPINE EXAM: MR Cervical Spine Without Intravenous Contrast CLINICAL HISTORY: Reason for exam: Left lower ext weakness, numbness. TECHNIQUE: Magnetic resonance images of the cervical spine without intravenous contrast in multiple planes. COMPARISON: No relevant prior studies available. FINDINGS: This study is limited secondary to lack of axial imaging and motion artifact. Vertebrae: There are 7 cervical type vertebral bodies with a mild generalized curved to the left and straightening normal cervical lordosis. There is mild grade 1 anterolisthesis of C3 on C4 measuring 2 mm. Otherwise, there is normal vertebral body height and alignment. The bone marrow signal is heterogeneous with reactive endplate changes. No acute fracture. There is mild to advanced facet arthropathy with mild to moderate synovitis, most significant at C5-6. Spinal cord: The cord is normal size, shape and signal characteristics. The craniocervical junction is normal without evidence of Chiari malformation. Soft tissues: The cervical flow voids are intact. DISCS/SPINAL CANAL/NEURAL FORAMINA: C2-C3: The intervertebral disc is normal. C3-C4: There is mild disc degeneration with annular disc bulge flattening the ventral thecal sac. C4-C5: There is mild disc degeneration with annular disc bulge flattening the ventral thecal sac. C5-C6: Advanced disc degeneration with annular disc bulge flattening the ventral thecal sac. C6-C7: Moderate disc degeneration with annular disc bulge flattening the ventral thecal sac. C7-T1: The intervertebral disc is normal. IMPRESSION: 1. Advanced disc degeneration at C5-6, moderate disc degeneration at C6- 7, and mild disc degeneration at C3-4 and C4-5 with annular disc bulging flattening the ventral thecal sac. 2. There is no spinal canal stenosis. 3. The neural foramina are poorly visualized secondary to motion artifact. 4. There is mild to advanced facet arthropathy with mild to moderate synovitis, most significant at C5-6. 5. No evidence of fracture, infection, tumor or myelopathy. Electronically signed by: Rosie Malone MD 10/18/25 22:39 PM Discharge Instructions Given to Patient (Per Discharging Provider) CONTINUE YOUR USUAL MEDICATIONS. PLEASE CALL YOUR PRIMARY CARE PHYSICIAN OR RETURN TO THE ER IF WITH WORSENING OF SYMPTOMS. FOLLOW UP WITH PRIMARY CARE PHYSICIAN IN 1 WEEK. Who to Call and When: Medical Emergencies: Call 911 immediately if you experience any of the following warning signs and symptoms of Stroke: Sudden numbness or weakness of the face, arm or leg, especially on one side of the body Sudden confusion, trouble speaking or understanding Sudden trouble seeing in one or both eyes Sudden trouble walking, dizziness, loss of balance or coordination Sudden severe headache with no cause Do not delay calling 911 if you experience any warning signs or symptoms of a stroke. Delay in seeking medical attention may affect what treatments can be given to you. Total Time Total Time Spent Total Time Spent (In Minutes): 40 minutes
--- NOTE | 2025-12-19 11:49 | Coding Query ---
A supporting diagnosis is required for the test/procedure performed on this patient in order for us to be reimbursed by the patient's insurance. Please provide a supporting diagnosis for the following test/procedure listed below next to the test name. *If there is no additional diagnosis for this patient that would support the following test/procedure please document that below next to the test/procedure. Test(s)/Procedure(s) that require a supporting diagnosis: * (CAROTID DOP)DUPLEX NECK ARTER 35108 DIAGNOSIS: CVA Thank you [facility] [employer] Information Management Once completed, please kindly fax back to [phone] For questions please call [phone] [facility]
== END 2025-10-19 09:30 | disposition home health service (06) | DRG 57 ==
LOC: ED 20:59 → 2N 20:59 → SUATTDRO 23:43 → 2N 10-18 01:21